=== PATIENT | female | born 1965 | race African-American/Black ===

== ENCOUNTER 2018-06-01 16:42 | Emergency (ER) | payer OTHER, SELFPAY ==
[2018-06-01 17:18] LABS: Hemoglobin 13.8 g/dL (12.0-16.0); Mean Corpuscular HGB CONC 33.2 g/dL (32.0-36.0); Mean Corpuscular Hemoglobin 32.4 pg (27.0-31.0); Mean Corpuscular Volume 97.6 fL (78.0-98.0); Mean Platelet Volume 9.7 fL (7.4-10.4); Platelet Count 168 thou/uL (130-400); RBC Distribution Width 12.5 % (11.5-14.5); Red Blood Cell (RBC) Count 4.27 mill/uL (4.20-5.40); White Blood Cell (WBC) Count 5.7 thou/uL (4.8-10.8)
[2018-06-01 17:34] LABS: Eosinophils 2 % (0-10); Lymphocytes 58 % (21-51); MDiff Complete? YES; Monocytes 1 % (0-10); Neutrophil 39 % (42-75); PLT Morphology Comment Appears Adequate
[2018-06-01 17:38] LABS: ALT (SGPT) 81 U/L (8-55); AST (SGOT) 141 U/L (5-34); Albumin 3.6 g/dL (3.5-5.0); Alkaline Phosphatase 130 U/L (40-150); Anion Gap 13 mmol/L (10-20); BUN (Urea Nitrogen) 14 mg/dL (9.8-20.1); Bilirubin, Total 0.6 mg/dL (0.2-1.2); Calc. Creatinine Clearance 0 mL/min (70-130); Carbon Dioxide 22 mmol/L (22-29); Chloride 107 mmol/L (98-107); Estimated GFR-MDRD Greater than 90; Globulin 4.5 g/dL (2.4-3.5); Glucose 84 mg/dL (70-105); Lipase 18 U/L (8-78); Potassium 3.9 mmol/L (3.5-5.1); Protein, Total 8.1 g/dL (6.0-8.3); Sodium 138 mmol/L (136-145)
--- NOTE | 2018-06-01 17:46 | RAD ---
CHEST TWO VIEWS: HISTORY: Mid chest pain. COMPARISON: 07/05/2016 FINDINGS: Two views of the chest show a normal sized cardiomediastinal silhouette. Scarring is seen in the rig ht lung base. There is no evidence of consolidation, mass, or pleural effusion. IMPRESSION: No evidence of acute cardiopulmonary disease. POS: [facility]
--- NOTE | 2018-06-01 18:03 | RAD ---
PELVIS SINGLE VIEW: HISTORY: Injury with pelvic pain. COMPARISON: None. FINDINGS: An anterior view of the pelvis shows no evidence of fracture or dislocation. No degenerative changes are seen in either hip. Degenerative changes are seen in the lumbar spine. IMPRESSION: No evidence of acute osseous abnormality. POS: [facility]
--- NOTE | 2018-06-01 18:04 | RAD ---
SACRUM AND COCCYX THREE VIEWS: HISTORY: Pain after falling on buttocks. COMPARISON: None. FINDINGS: Three views of the sacrum and coccyx show no evidence of displaced sacral or coccygeal fracture. Deg enerative changes are seen in the lower lumbosacral spine. IMPRESSION: No evidence of displaced sacral or coccygeal fracture. POS: [facility]
[2018-06-01 18:52] LABS: Acetaminophen Less than 6.0 mcg/mL (10.0-30.0); Alcohol Less than 10 mg/dL (Less than 10); Salicylate Less than 8.0 mg/dL (15.0-30.0)
[2018-06-01 19:04] LABS: Bilirubin Negative (Negative); Blood, Urine Negative (Negative); Clarity CLEAR (Clear); Glucose, Urine (Dipstick) Negative (Negative); Leukocyte Negative (Negative); Nitrite Negative (Negative); Protein, Urine (Dipstick) Negative (Neg-Trace); Specific Gravity, Urine 1.009 (1.002-1.036)
[2018-06-01 19:14] LABS: Medtox Reader # READER 1; Phencyclidine (PCP) Not Detected (NotDetected); THC/Cannabinoid Screen Not Detected (NotDetected)
[2018-06-01 19:15] LABS: Amphetamine Not Detected (NotDetected); Barbiturates Screen Detected (NotDetected); Benzodiazepine Screen Not Detected (NotDetected); Cocaine Metabolite Screen Detected (NotDetected); Medtox Control Line Valid? VALID (VALID); Methadone Not Detected (NotDetected); Methamphetamine Not Detected (NotDetected); Opiate Screen Not Detected (NotDetected); Oxycodone Screen Not Detected (NotDetected); Tricyclic Screen Not Detected (NotDetected)
[2018-06-01] MEDS ORDERED: traZODone HCl 50 MG TAB ONE (20:45)
[2018-06-02] MEDS ORDERED: hydrOXYzine Pamoate 25 mg Capsule ONE (12:45)
[2018-06-02] MEDS ORDERED: Ibuprofen 200 MG TAB ONE (12:45)
[2018-06-02] MEDS ORDERED: Nicotine 14 MG PATCH ONE (12:46)
[2018-06-02] MEDS ORDERED: Ondansetron ODT 8 MG TAB ONE (15:56)
[2018-06-02] MEDS ORDERED: Promethazine 25 MG TAB ONE (21:32)
[2018-06-02] MEDS ORDERED: Promethazine HCl 25 MG SUPP ONE (21:40)
[2018-06-02 23:21] LABS: #Eosinphils 0.1 thou/uL (0.0-0.7); #Lymphocytes 1.7 thou/uL (1.20-3.40); #Monocytes 0.5 thou/uL (0.11-0.59); #Neutrophils 1.8 thou/uL (1.40-6.50); %Basophils 0.9 % (0.0-1.0); %Eosinophils 1.6 % (0.0-10.0); %Lymphocytes 41.7 % (21.0-51.0); %Monocytes 12.9 % (0.0-10.0); %Neutrophils 42.9 % (42.0-75.0); Hemoglobin 14.1 g/dL (12.0-16.0); Mean Corpuscular HGB CONC 33.7 g/dL (32.0-36.0); Mean Corpuscular Hemoglobin 32.7 pg (27.0-31.0); Mean Corpuscular Volume 96.9 fL (78.0-98.0); Mean Platelet Volume 9.2 fL (7.4-10.4); Platelet Count 165 thou/uL (130-400); RBC Distribution Width 12.4 % (11.5-14.5); Red Blood Cell (RBC) Count 4.32 mill/uL (4.20-5.40); White Blood Cell (WBC) Count 4.1 thou/uL (4.8-10.8)
[2018-06-02] MEDS ORDERED: Pantoprazole 40 MG VIAL ONE (23:57)
[2018-06-02] MEDS ORDERED: cefTRIAXone\\ROCEPHIN 1 GM VIAL ONE (23:57)
[2018-06-02] MEDS ORDERED: Sodium Chloride 0.9% 100 ML ONE (23:57)
[2018-06-02] MEDS ORDERED: Octreotide Acetate 50 MCG/ML AMP ONE (23:57)
[2018-06-03 00:54] LABS: Anion Gap 15 mmol/L (10-20); BUN (Urea Nitrogen) 7 mg/dL (9.8-20.1); Calc. Creatinine Clearance 0 mL/min (70-130); Calcium 9.4 mg/dL (7.8-10.44); Carbon Dioxide 26 mmol/L (22-29); Chloride 105 mmol/L (98-107); Estimated GFR-MDRD Greater than 90; Glucose 116 mg/dL (70-105); Potassium 3.3 mmol/L (3.5-5.1); Sodium 143 mmol/L (136-145)
[2018-06-03 08:30] LABS: Hemoglobin 14.3 g/dL (12.0-16.0)
--- NOTE | 2018-06-05 18:10 | EKG ---
Test Reason : CHEST PAIN Blood Pressure : / mmHG Vent. Rate : 072 BPM Atrial Rate : 072 BPM P-R Int : 168 ms QRS Dur : 094 ms QT Int : 424 ms P-R-T Axes : 063 044 042 degrees QTc Int : 464 ms Normal sinus rhythm Possible Left atrial enlargement Septal infarct , age undetermined Abnormal ECG When compared with ECG of 04-JUL-2016 No changes Confirmed by VILMA AARON DO ([id number]), film editor supervisor ASAD CUEVA ([id number]) on 06/05/2018 6:09:57 PM Referred By: RALEIGH Confirmed By:VILMA AARON DO
== END 2018-06-04 01:03 | disposition home or self-care (01) ==
LOC: ERS 16:42
DX: R07.89 Other chest pain (principal); R45.850 Homicidal ideations; R45.851 Suicidal ideations; K62.89 Other specified diseases of anus and rectum; G40.909 Epilepsy, unspecified, not intractable, without status epilepticus; B20 Human immunodeficiency virus [HIV] disease; I10 Essential (primary) hypertension; Z86.73 Personal history of transient ischemic attack (TIA), and cerebral infarction without residual deficits
CPT/HCPCS: 36415; 71046; 72170; 72220; 80048; 80053; 80306; 80307; 81003; 82271; 83690; 83880; 84484; 85014; 85018; 85025; 93005; 96372; 96374; C9113; J0696; J2354; J7050; Q0177

== ENCOUNTER 2018-06-12 17:13 | Emergency (ER) | payer SELFPAY ==
[~2018-06-12 17:13] MED LIST: Iopamidol 370 76% 100 ML VIAL ONE; Iopamidol 370 76% 50 ML VIAL FS ONE
[2018-06-12] MEDS ORDERED: Ondansetron PF 4 MG/2 ML Vial ONE ×2 (18:05→21:55)
[2018-06-12] MEDS ORDERED: Haloperidol Lactate 5 MG/ML VIAL ONE (18:33)
[2018-06-12 19:40] LABS: #Eosinphils 0.1 thou/uL (0.0-0.7); #Lymphocytes 2.9 thou/uL (1.20-3.40); #Monocytes 0.8 thou/uL (0.11-0.59); #Neutrophils 2.2 thou/uL (1.40-6.50); %Basophils 0.7 % (0.0-1.0); %Eosinophils 1.4 % (0.0-10.0); %Lymphocytes 49.1 % (21.0-51.0); %Monocytes 12.8 % (0.0-10.0); %Neutrophils 35.9 % (42.0-75.0); Hemoglobin 15.6 g/dL (12.0-16.0); Mean Corpuscular HGB CONC 33.7 g/dL (32.0-36.0); Mean Corpuscular Hemoglobin 32.7 pg (27.0-31.0); Mean Corpuscular Volume 97.2 fL (78.0-98.0); Mean Platelet Volume 9.8 fL (7.4-10.4); Platelet Count 182 thou/uL (130-400); RBC Distribution Width 12.4 % (11.5-14.5); Red Blood Cell (RBC) Count 4.78 mill/uL (4.20-5.40)
[2018-06-12 20:03] LABS: ALT (SGPT) 49 U/L (8-55); AST (SGOT) 57 U/L (5-34); Albumin 3.9 g/dL (3.5-5.0); Alkaline Phosphatase 115 U/L (40-150); Anion Gap 16 mmol/L (10-20); BUN (Urea Nitrogen) 9 mg/dL (9.8-20.1); Bilirubin, Total 0.6 mg/dL (0.2-1.2); Calc. Creatinine Clearance 0 mL/min (70-130); Calcium 9.7 mg/dL (7.8-10.44); Carbon Dioxide 25 mmol/L (22-29); Chloride 105 mmol/L (98-107); Estimated GFR-MDRD 78; Globulin 4.6 g/dL (2.4-3.5); Glucose 118 mg/dL (70-105); Lipase 82 U/L (8-78); Potassium 3.3 mmol/L (3.5-5.1); Protein, Total 8.5 g/dL (6.0-8.3); Sodium 143 mmol/L (136-145)
[2018-06-12 20:13] LABS: Acetaminophen Less than 6.0 mcg/mL (10.0-30.0); Alcohol Less than 10 mg/dL (Less than 10); Salicylate Less than 8.0 mg/dL (15.0-30.0)
[2018-06-12] MEDS ORDERED: Morphine 4 MG/ML VIAL ONE ×2 (21:04→23:25)
[2018-06-12 21:28] LABS: Bilirubin Small (Negative); Blood, Urine Negative (Negative); Clarity CLEAR (Clear); Glucose, Urine (Dipstick) Negative (Negative); Leukocyte Small (Negative); Nitrite Negative (Negative); Protein, Urine (Dipstick) 100 mg/dL (Neg-Trace); Specific Gravity, Urine 1.037 (1.002-1.036); pH, Urine 7.5 (5.0-9.0)
[2018-06-12 21:30] LABS: Bacteria/HPF None Seen HPF (None Seen); Pathc Cast-AUWi Flag 1.59 (0-2.49)
[2018-06-12 21:31] LABS: Hyaline Casts/LPF 0-3 HYALINE CAST LPF (0-3 Hyaline)
[2018-06-12 21:38] LABS: Amphetamine Not Detected (NotDetected); Barbiturates Screen Detected (NotDetected); Benzodiazepine Screen Not Detected (NotDetected); Cocaine Metabolite Screen Detected (NotDetected); Medtox Control Line Valid? VALID (VALID); Medtox Reader # READER 1; Methadone Not Detected (NotDetected); Methamphetamine Not Detected (NotDetected); Opiate Screen Not Detected (NotDetected); Oxycodone Screen Not Detected (NotDetected); Phencyclidine (PCP) Not Detected (NotDetected); THC/Cannabinoid Screen Detected (NotDetected); Tricyclic Screen Not Detected (NotDetected)
--- NOTE | 2018-06-12 22:14 | CT ---
CT ABDOMEN AND PELVIS WITH CONTRAST: 06/12/18 HISTORY: Abdominal pain. COMPARISON: Stone protocol CT 05/21/17. FINDINGS: Mild thickening of both major fissures. No significant pleural effusion. No pericardial effusion. There is a fat and omentum containing supraumbilical hernia between the xip hoid process and the umbilicus with some mild congestion of the vessels. The neck measures 13 mm. The hernia does not contain bowel. There are no dilated loops of large or small bowel. The kidneys are unremarkable. No hydronephrosis. No retroperitoneal adenopathy . Pancreas is unremark able. There is no acute osseous abnormality. Moderate facet arthropathy lower lumbar spine. IMPRESSION: 1. No acute inflammatory process in abdomen or pelvis. 2. There is a fat and omentum containing supraumbilical subxiphoid hernia with some mild congest fabiana changes in the fat. No bowel is within this hernia. 3. Normal appendix. POS: [facility]
[2018-06-12] MEDS ORDERED: Promethazine HCl 25 MG/ML VIAL ONE (23:28)
[2018-06-12 23:37] LABS: Hemoglobin 14.5 g/dL (12.0-16.0)
[2018-06-12] MEDS ORDERED: Nitroglycerin 0.4 MG TAB (25 Tab Bottle) ONE (23:44)
[2018-06-12] MEDS ORDERED: Nitroglycerin 2% Ointment 1 INCH/1 GM Packet ONE (23:44)
[2018-06-12] MEDS ORDERED: Potassium Chloride 10 MEQ in Premix Bag 1 BAG IVPB SCH (23:45)
== END 2018-06-13 03:19 | disposition home or self-care (01) ==
LOC: ERS 17:13
DX: R10.9 Unspecified abdominal pain (principal); B20 Human immunodeficiency virus [HIV] disease; I10 Essential (primary) hypertension; F41.9 Anxiety disorder, unspecified; F31.9 Bipolar disorder, unspecified; F20.9 Schizophrenia, unspecified; F17.210 Nicotine dependence, cigarettes, uncomplicated
CPT/HCPCS: 36415; 74177; 80053; 80306; 80307; 81003; 81015; 82271; 83690; 83735; 85025; 93005; 96361; 96365; 96366; 96372; 96374; 96375; J1630; J2270; J2405; J2550; J3480

== ENCOUNTER → 2018-06-14 | Emergency (ER) | payer SELFPAY ==
[~2018-06-14] MED LIST changes: +Amlodipine 10 MG TAB PO SCH; -Iopamidol 370 76% 100 ML VIAL ONE; -Iopamidol 370 76% 50 ML VIAL FS ONE; +diphenhydrAMINE 25 MG CAP ONE
[2018-06-14 21:56] LABS: Acetaminophen Less than 6.0 mcg/mL (10.0-30.0); Alcohol Less than 10 mg/dL (Less than 10); Salicylate Less than 8.0 mg/dL (15.0-30.0)
[2018-06-14 21:57] LABS: ALT (SGPT) 50 U/L (8-55); AST (SGOT) 63 U/L (5-34); Albumin 3.8 g/dL (3.5-5.0); Alkaline Phosphatase 105 U/L (40-150); Anion Gap 12 mmol/L (10-20); BUN (Urea Nitrogen) 11 mg/dL (9.8-20.1); Bilirubin, Total 0.4 mg/dL (0.2-1.2); Calc. Creatinine Clearance 0 mL/min (70-130); Calcium 9.5 mg/dL (7.8-10.44); Carbon Dioxide 26 mmol/L (22-29); Chloride 107 mmol/L (98-107); Estimated GFR-MDRD 65; Globulin 4.3 g/dL (2.4-3.5); Glucose 121 mg/dL (70-105); Potassium 3.3 mmol/L (3.5-5.1); Protein, Total 8.1 g/dL (6.0-8.3); Sodium 142 mmol/L (136-145)
[2018-06-14 21:59] LABS: Hemoglobin 15.4 g/dL (12.0-16.0); Mean Corpuscular HGB CONC 33.2 g/dL (32.0-36.0); Mean Corpuscular Volume 96.2 fL (78.0-98.0); Mean Platelet Volume 10.4 fL (7.4-10.4); Platelet Count 172 thou/uL (130-400); RBC Distribution Width 12.1 % (11.5-14.5); Red Blood Cell (RBC) Count 4.81 mill/uL (4.20-5.40); White Blood Cell (WBC) Count 7.3 thou/uL (4.8-10.8)
[2018-06-14 22:03] LABS: Lymphocytes 45 % (21-51); MDiff Complete? YES; Monocytes 18 % (0-10); Neutrophil 33 % (42-75); PLT Morphology Comment Appears Adequate; RBC Morphology Normal; Reactive Lymphocytes 4 % (0-10)
[2018-06-14 22:05] LABS: Bilirubin Moderate (Negative); Blood, Urine Negative (Negative); Glucose, Urine (Dipstick) 100 mg/dL (Negative); Leukocyte Trace (Negative); Nitrite Negative (Negative); Protein, Urine (Dipstick) 30 mg/dL (Neg-Trace); pH, Urine 8.5 (5.0-9.0)
[2018-06-14 22:08] LABS: Clarity Hazy (Clear)
[2018-06-14 22:09] LABS: Bacteria/HPF 1+ HPF (None Seen); Other Microscopic Description Less than 2 mL rec'd; RBC/HPF 0-3 HPF (0-3); WBC/HPF 0-3 HPF (0-3)
[2018-06-14 22:18] LABS: Amphetamine Not Detected (NotDetected); Barbiturates Screen Detected (NotDetected); Benzodiazepine Screen Not Detected (NotDetected); Cocaine Metabolite Screen Detected (NotDetected); Medtox Control Line Valid? VALID (VALID); Medtox Reader # READER 4; Methadone Not Detected (NotDetected); Methamphetamine Not Detected (NotDetected); Opiate Screen Detected (NotDetected); Oxycodone Screen Not Detected (NotDetected); Phencyclidine (PCP) Not Detected (NotDetected); THC/Cannabinoid Screen Detected (NotDetected); Tricyclic Screen Not Detected (NotDetected)
== END ==
LOC: ERS 20:25
DX: R45.851 Suicidal ideations (principal); G40.909 Epilepsy, unspecified, not intractable, without status epilepticus; B20 Human immunodeficiency virus [HIV] disease; I10 Essential (primary) hypertension; F31.9 Bipolar disorder, unspecified; F41.9 Anxiety disorder, unspecified; F20.9 Schizophrenia, unspecified; F17.210 Nicotine dependence, cigarettes, uncomplicated
CPT/HCPCS: 36415; 80053; 80306; 80307; 81003; 81015; 85025; 99285

== ENCOUNTER 2018-07-31 11:31 | Emergency (ER) | payer SELFPAY ==
[2018-07-31] MEDS ORDERED: hydrALAZINE 20 MG/ML VIAL ONE (12:08)
[2018-07-31 12:16] LABS: #Basophils 0.1 thou/uL (0.0-0.2); #Lymphocytes 2.1 thou/uL (1.20-3.40); #Monocytes 0.9 thou/uL (0.11-0.59); #Neutrophils 7.7 thou/uL (1.40-6.50); %Basophils 0.6 % (0.0-1.0); %Lymphocytes 19.6 % (21.0-51.0); %Monocytes 8.5 % (0.0-10.0); %Neutrophils 71.2 % (42.0-75.0); Hemoglobin 15.5 g/dL (12.0-16.0); Mean Corpuscular Hemoglobin 31.8 pg (27.0-31.0); Mean Corpuscular Volume 96.4 fL (78.0-98.0); Platelet Count 137 thou/uL (130-400); RBC Distribution Width 12.1 % (11.5-14.5); Red Blood Cell (RBC) Count 4.88 mill/uL (4.20-5.40); White Blood Cell (WBC) Count 10.8 thou/uL (4.8-10.8)
[2018-07-31 12:19] LABS: Bilirubin Small (Negative); Blood, Urine Small (Negative); Clarity TURBID (Clear); Glucose, Urine (Dipstick) Negative (Negative); Leukocyte Small (Negative); Nitrite Negative (Negative); Protein, Urine (Dipstick) 30 mg/dL (Neg-Trace); Specific Gravity, Urine 1.028 (1.002-1.036); pH, Urine 5.5 (5.0-9.0)
[2018-07-31 12:21] LABS: Bacteria/HPF Rare-Few HPF (None Seen); Hyaline Casts/LPF 4-6 HYALINE CAST LPF (0-3 Hyaline)
[2018-07-31] MEDS ORDERED: cloNIDine 0.1 MG TAB ONE (12:29)
[2018-07-31] MEDS ORDERED: Lidocaine 1% w/Epinephrine 1:100K 20 ML VIAL ONE (12:31)
[2018-07-31 12:32] LABS: Crystals/HPF 4+ AMORPH URATES HPF (Negative); RBC/HPF 0-3 HPF (0-3)
[2018-07-31 12:36] LABS: ALT (SGPT) 76 U/L (8-55); AST (SGOT) 93 U/L (5-34); Albumin 3.6 g/dL (3.5-5.0); Alkaline Phosphatase 106 U/L (40-150); Anion Gap 13 mmol/L (10-20); BUN (Urea Nitrogen) 10 mg/dL (9.8-20.1); Bilirubin, Total 0.8 mg/dL (0.2-1.2); CK (CPK) 400 U/L (29-168); Calc. Creatinine Clearance 0 mL/min (70-130); Calcium 9.6 mg/dL (7.8-10.44); Carbon Dioxide 21 mmol/L (22-29); Chloride 102 mmol/L (98-107); Estimated GFR-MDRD 80; Globulin 4.7 g/dL (2.4-3.5); Glucose 96 mg/dL (70-105); Lipase 13 U/L (8-78); Potassium 3.9 mmol/L (3.5-5.1); Protein, Total 8.3 g/dL (6.0-8.3); Sodium 132 mmol/L (136-145)
[2018-07-31 12:36] LABS: Amphetamine Not Detected (NotDetected); Barbiturates Screen Not Detected (NotDetected); Benzodiazepine Screen Not Detected (NotDetected); Cocaine Metabolite Screen Detected (NotDetected); Medtox Control Line Valid? VALID (VALID); Medtox Reader # READER 4; Methadone Not Detected (NotDetected); Methamphetamine Not Detected (NotDetected); Opiate Screen Not Detected (NotDetected); Oxycodone Screen Not Detected (NotDetected); Phencyclidine (PCP) Not Detected (NotDetected); THC/Cannabinoid Screen Detected (NotDetected); Tricyclic Screen Not Detected (NotDetected)
[2018-07-31 12:37] LABS: Acetaminophen Less than 6.0 mcg/mL (10.0-30.0); Alcohol Less than 10 mg/dL (Less than 10); Salicylate Less than 8.0 mg/dL (15.0-30.0)
--- NOTE | 2018-07-31 15:54 | CT ---
CT ANGIOGRAM OF THE THORACIC AND ABDOMINAL AORTA 07/31/18 HISTORY: Evaluate for dissection. Chest pain with radiation to both upper extremities. Intermittent abdominal pain. COMPARISON: None. CORRELATION: Abdomen and pelvic CT of 06/12/18. TECHNIQUE: CT angiogram of the thoracic and abdominal aorta is performed in the axial plane. Three dimensional r eformatted images are submitted for interpretation. FINDINGS: There are mildly enlarged bilateral axillary lymph nodes. Largest axillary lymph node without a prese rved fatty hilum is noted in the left axilla measuring 1.8 x 1.5 cm. Unremarkable thyroid gland. No mediastinal mass, lymphadenopathy or hematoma. Heart size is within normal limits. No pericardial effusion. Calcified nodule in the right upper lobe. Focal consolidation in the middle lobe. Opacity may repres ent area of subsegmental atelectasis or scar. Atelectasis and scarring in the lingula. No significan t pleural fluid or pneumothorax. ABDOMEN CT: Liver, spleen, pancreas and adrenal glands have appropriate enhancement. Unremarkable gallbladder. No gastrohepatic, retrocrural or periportal lymphadenopathy. No mesenteric mass, lymphadenopathy, free air or free fluid. The visualized kidneys have symmetric enhancement. No obstructive uropathy. The visualized alimentary canal is unremarkable. No evidence of bowel obstruction. Evaluation is limi jameson by the lack of oral contrast administration. Redemonstration of an anterior abdominal wall hernia containing mesenteric fat with stable mesenteric congestion. There are no lytic or blastic lesions in the osseous structures. CT ANGIOGRAM: The aortic root is unremarkable. The ascending thoracic aorta, descending thoracic aorta, and abdomin al aorta have an overall normal course and caliber. No aneurysm or dissection. No periaortic fat stra nding. The origin of the carotid and vertebral arteries is grossly unremarkable. There does appear to be common origin of both common carotid arteries (bovine arch). There is medial deviation of both co mmon carotid arteries with mass effect on the posterior hypopharynx. 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 The visualized subclavian arteries are unremarkable. The celiac artery, superior mesenteric artery, bilateral renal artery ostia are patent. TRIXIE is unremarkable. Aortic bifurcation and visualized iliac arteries are also unremarkable. Central pulmonary arteries do not demonstrate any obvious filling defect. IMPRESSION: 1. No evidence of aneurysm or dissection. 2. Focal opacity in the middle lobe which may represent area of subsegmental atelectasis or scar . POS: [facility]
[2018-07-31] MEDS ORDERED: Acetaminophen 500 MG TAB ONE (16:01)
[2018-07-31] MEDS ORDERED: ISOVUE-370 76%-LOCM 1 ML ONE (16:49)
[2018-08-01] MEDS ORDERED: Acetaminophen 500 MG TAB ONE (09:50)
== END 2018-08-01 15:44 ==
LOC: ERS 11:31
DX: R07.9 Chest pain, unspecified (principal); R45.851 Suicidal ideations; R10.9 Unspecified abdominal pain; F14.10 Cocaine abuse, uncomplicated; B20 Human immunodeficiency virus [HIV] disease; G40.909 Epilepsy, unspecified, not intractable, without status epilepticus; I10 Essential (primary) hypertension; F41.9 Anxiety disorder, unspecified; F31.9 Bipolar disorder, unspecified; F20.9 Schizophrenia, unspecified; F17.210 Nicotine dependence, cigarettes, uncomplicated; I67.1 Cerebral aneurysm, nonruptured; Z79.891 Long term (current) use of opiate analgesic; Z79.899 Other long term (current) drug therapy
CPT/HCPCS: 36415; 71275; 80053; 80306; 80307; 81003; 81015; 82550; 83690; 84443; 84484; 85025; 87804; 93005; 96372; J0360; J0500; J2001; Q9966

== ENCOUNTER 2018-08-26 12:11 | Emergency (ER) | payer SELFPAY ==
[2018-08-26 12:45] LABS: Hemoglobin 15.2 g/dL (12.0-16.0); Mean Corpuscular HGB CONC 32.2 g/dL (32.0-36.0); Mean Corpuscular Hemoglobin 30.4 pg (27.0-31.0); Mean Corpuscular Volume 94.5 fL (78.0-98.0); Mean Platelet Volume 9.4 fL (7.4-10.4); Platelet Count 184 thou/uL (130-400); RBC Distribution Width 13.1 % (11.5-14.5); Red Blood Cell (RBC) Count 4.98 mill/uL (4.20-5.40); White Blood Cell (WBC) Count 5.4 thou/uL (4.8-10.8)
[2018-08-26 12:50] LABS: INR-International Normal Ratio 1.1; PTT 31.4 SEC (22.9-36.1); Prothrombin Time 14.2 SEC (12.0-14.7)
[2018-08-26 13:01] LABS: Lymphocytes 55 % (21-51); MDiff Complete? YES; Monocytes 13 % (0-10); Neutrophil 28 % (42-75); Platelet Morphology Comment Appears Adequate; RBC Morphology Normal; Reactive Lymphocytes 3 % (0-10)
[2018-08-26 13:13] LABS: ALT (SGPT) 53 U/L (8-55); AST (SGOT) 76 U/L (5-34); Albumin 3.6 g/dL (3.5-5.0); Alkaline Phosphatase 76 U/L (40-150); Anion Gap 14 mmol/L (10-20); BUN (Urea Nitrogen) 6 mg/dL (9.8-20.1); Bilirubin, Total 0.7 mg/dL (0.2-1.2); CK (CPK) 359 U/L (29-168); Calc. Creatinine Clearance 0 mL/min (70-130); Calcium 9.7 mg/dL (7.8-10.44); Carbon Dioxide 24 mmol/L (22-29); Chloride 107 mmol/L (98-107); Estimated GFR-MDRD 83; Globulin 4.9 g/dL (2.4-3.5); Glucose 119 mg/dL (70-105); Potassium 3.4 mmol/L (3.5-5.1); Protein, Total 8.5 g/dL (6.0-8.3); Sodium 142 mmol/L (136-145)
--- NOTE | 2018-08-26 13:24 | CT ---
CT HEAD WITHOUT CONTRAST: Date: 08/26/18 COMPARISON: 06/27/15. HISTORY: Right-sided weakness. TECHNIQUE: Axial CT imaging obtained at 5 mm intervals from vertex through skull base without contrast. FINDINGS: Imaged paranasal sinuses and mastoid air cells are well aerated. 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 There is no intracranial hemorrhage, midline shift, or mass effect. Mild stable cerebellar volume los s. IMPRESSION: Stable head CT as detailed above. No intracranial hemorrhage. Results called to Dr. Hermosillo at 1223 hours on 08/26/18. CODE CR. POS: [facility]
[2018-08-26] MEDS ORDERED: Lorazepam 2 MG/ML VIAL ONE ×2 (14:48→16:46)
[2018-08-26 15:34] LABS: Acetaminophen Less than 6.0 mcg/mL (10.0-30.0); Alcohol Less than 10 mg/dL (Less than 10); Salicylate Less than 8.0 mg/dL (15.0-30.0)
[2018-08-26] MEDS ORDERED: Ziprasidone 20 MG CAP ONE (16:46)
[2018-08-27] MEDS ORDERED: diphenhydrAMINE 25 MG CAP ONE ×2 (10:59→23:38)
[2018-08-27] MEDS ORDERED: Ziprasidone 20 MG CAP ONE ×2 (11:01)
[2018-08-27] MEDS ORDERED: Lorazepam 2 MG/ML VIAL ONE (13:51)
[2018-08-28] MEDS ORDERED: Amlodipine 10 MG TAB PO SCH (09:00)
[2018-08-28] MEDS ORDERED: Benztropine 1 MG TAB PO SCH (09:00)
[2018-08-28] MEDS ORDERED: risperiDONE 1 MG TAB PO SCH (09:00)
[2018-08-28 13:01] LABS: Bilirubin Small (Negative); Blood, Urine Negative (Negative); Clarity CLEAR (Clear); Glucose, Urine (Dipstick) Negative (Negative); Leukocyte Small (Negative); Nitrite Negative (Negative); Protein, Urine (Dipstick) Negative (Neg-Trace); Specific Gravity, Urine 1.024 (1.002-1.036)
[2018-08-28 13:03] LABS: Bacteria/HPF None Seen HPF (None Seen); Hyaline Casts/LPF 0-3 HYALINE CAST LPF (0-3 Hyaline); Pathc Cast-AUWi Flag 0.54 (0-2.49); RBC/HPF 0-3 HPF (0-3); Squamous Epithelial 0-3 HPF (0-3); WBC/HPF 0-3 HPF (0-3)
[2018-08-28 13:12] LABS: Crystals/HPF 1+ CA OXALATE HPF (Negative)
[2018-08-28 13:13] LABS: Amphetamine Not Detected (NotDetected); Barbiturates Screen Not Detected (NotDetected); Benzodiazepine Screen Detected (NotDetected); Cocaine Metabolite Screen Detected (NotDetected); Medtox Control Line Valid? VALID (VALID); Medtox Reader # READER 4; Methadone Not Detected (NotDetected); Methamphetamine Not Detected (NotDetected); Opiate Screen Not Detected (NotDetected); Oxycodone Screen Not Detected (NotDetected); Phencyclidine (PCP) Not Detected (NotDetected); THC/Cannabinoid Screen Detected (NotDetected); Tricyclic Screen Not Detected (NotDetected)
--- NOTE | 2018-08-28 17:36 | EKG ---
Test Reason : Blood Pressure : / mmHG Vent. Rate : 078 BPM Atrial Rate : 078 BPM P-R Int : 160 ms QRS Dur : 092 ms QT Int : 396 ms P-R-T Axes : 050 030 029 degrees QTc Int : 451 ms Normal sinus rhythm Moderate voltage criteria for LVH, may be normal variant Cannot rule out Septal infarct , age undetermined Abnormal ECG Confirmed by FRANSISCO PAUL, BRUNO ([id number]), editor city ASAD CUEVA ([id number]) on 08/28/2018 5:35:51 PM Referred By: Confirmed By:BRUNO MOODY MD
[2018-08-30] MEDS ORDERED: risperiDONE 1 MG TAB PO SCH (09:00)
== END 2018-08-30 18:40 | disposition home or self-care (01) ==
LOC: ERS 12:11
DX: F32.3 Major depressive disorder, single episode, severe with psychotic features (principal); G40.909 Epilepsy, unspecified, not intractable, without status epilepticus; B20 Human immunodeficiency virus [HIV] disease; F41.9 Anxiety disorder, unspecified; F17.210 Nicotine dependence, cigarettes, uncomplicated; Z79.899 Other long term (current) drug therapy
CPT/HCPCS: 36416; 70450; 80053; 80306; 80307; 81003; 81015; 82550; 84443; 84484; 85025; 85610; 85730; 93005; 96372; 96374; 96376; J2060; Q0163

== ENCOUNTER 2018-09-02 02:28 | Emergency (ER) | payer SELFPAY ==
[2018-09-02 02:53] LABS: Bilirubin Negative (Negative); Blood, Urine Negative (Negative); Clarity CLEAR (Clear); Glucose, Urine (Dipstick) Negative (Negative); Leukocyte Moderate (Negative); Nitrite Negative (Negative); Protein, Urine (Dipstick) Negative (Neg-Trace); Urobilinogen 0.2 mg/dL (0.2-1.0)
[2018-09-02 02:56] LABS: Bacteria/HPF None Seen HPF (None Seen); Hyaline Casts/LPF 0-3 HYALINE CAST LPF (0-3 Hyaline); Squamous Epithelial 0-3 HPF (0-3); WBC/HPF 0-3 HPF (0-3)
[2018-09-02 02:59] LABS: Hemoglobin 15.1 g/dL (12.0-16.0); Mean Corpuscular HGB CONC 33.5 g/dL (32.0-36.0); Mean Corpuscular Hemoglobin 31.7 pg (27.0-31.0); Mean Corpuscular Volume 94.7 fL (78.0-98.0); Mean Platelet Volume 9.8 fL (7.4-10.4); Platelet Count 160 thou/uL (130-400); RBC Distribution Width 13.4 % (11.5-14.5); Red Blood Cell (RBC) Count 4.75 mill/uL (4.20-5.40); White Blood Cell (WBC) Count 6.7 thou/uL (4.8-10.8)
[2018-09-02 03:02] LABS: Amphetamine Not Detected (NotDetected); Barbiturates Screen Detected (NotDetected); Benzodiazepine Screen Not Detected (NotDetected); Cocaine Metabolite Screen Detected (NotDetected); Medtox Control Line Valid? VALID (VALID); Medtox Reader # READER 4; Methadone Not Detected (NotDetected); Methamphetamine Not Detected (NotDetected); Opiate Screen Not Detected (NotDetected); Oxycodone Screen Not Detected (NotDetected); Phencyclidine (PCP) Not Detected (NotDetected); THC/Cannabinoid Screen Not Detected (NotDetected); Tricyclic Screen Not Detected (NotDetected)
[2018-09-02] MEDS ORDERED: Lorazepam 1 MG TAB ONE (03:10)
[2018-09-02 03:16] LABS: Acetaminophen Less than 6.0 mcg/mL (10.0-30.0); Alcohol Less than 10 mg/dL (Less than 10); Salicylate Less than 8.0 mg/dL (15.0-30.0)
[2018-09-02 03:17] LABS: ALT (SGPT) 43 U/L (8-55); AST (SGOT) 70 U/L (5-34); Albumin 3.5 g/dL (3.5-5.0); Alkaline Phosphatase 83 U/L (40-150); Anion Gap 13 mmol/L (10-20); BUN (Urea Nitrogen) 7 mg/dL (9.8-20.1); Bilirubin, Total 0.6 mg/dL (0.2-1.2); Calc. Creatinine Clearance 0 mL/min (70-130); Calcium 9.5 mg/dL (7.8-10.44); Carbon Dioxide 20 mmol/L (22-29); Chloride 107 mmol/L (98-107); Estimated GFR-MDRD Greater than 90; Glucose 129 mg/dL (70-105); Potassium 3.6 mmol/L (3.5-5.1); Protein, Total 8.5 g/dL (6.0-8.3); Sodium 136 mmol/L (136-145)
[2018-09-02 03:23] LABS: MDiff Complete? YES
[2018-09-02 03:24] LABS: Lymphocytes 67 % (21-51); Monocytes 11 % (0-10); Neutrophil 16 % (42-75); Platelet Morphology Comment Appears Adequate; Reactive Lymphocytes 6 % (0-10)
[2018-09-02] MEDS ORDERED: Amlodipine 10 MG TAB PO SCH (04:15)
[2018-09-02] MEDS ORDERED: Benztropine 1 MG TAB PO SCH ×2 (07:45→21:45)
[2018-09-02] MEDS ORDERED: risperiDONE 1 MG TAB PO SCH ×2 (07:45→22:00)
[2018-09-03] MEDS ORDERED: Amlodipine 10 MG TAB PO SCH (07:45)
[2018-09-03] MEDS ORDERED: risperiDONE 1 MG TAB PO SCH ×2 (07:45→19:45)
[2018-09-03] MEDS ORDERED: Benztropine 1 MG TAB PO SCH ×2 (07:45→19:45)
[2018-09-03] MEDS ORDERED: risperiDONE 1 MG TAB ONE (08:22)
[2018-09-03] MEDS ORDERED: diphenhydrAMINE 25 MG CAP ONE (08:38)
[2018-09-03] MEDS ORDERED: traZODone HCl 50 MG TAB PO SCH (19:45)
[2018-09-04] MEDS ORDERED: Amlodipine 10 MG TAB PO SCH (09:00)
[2018-09-04] MEDS ORDERED: Benztropine 1 MG TAB PO SCH (09:00)
[2018-09-04] MEDS ORDERED: risperiDONE 1 MG TAB PO SCH (09:00)
[2018-09-07] MEDS ORDERED: RisperDAL M-TAB 1 MG TAB PO SCH (15:15)
== END 2018-09-02 09:45 | disposition home or self-care (01) ==
LOC: ERS 02:28
DX: F14.94 Cocaine use, unspecified with cocaine-induced mood disorder (principal); G40.909 Epilepsy, unspecified, not intractable, without status epilepticus; B20 Human immunodeficiency virus [HIV] disease; F41.9 Anxiety disorder, unspecified; F20.9 Schizophrenia, unspecified; F17.210 Nicotine dependence, cigarettes, uncomplicated; Z79.899 Other long term (current) drug therapy
CPT/HCPCS: 36415; 80053; 80306; 80307; 81003; 81015; 84443; 85025; 99284; Q0163

== ENCOUNTER 2018-12-29 11:42 | Emergency (ER) | payer MEDICAID ==
--- NOTE | 2018-12-29 12:42 | RAD ---
3 views left foot: 12/29/2018 COMPARISON: None available HISTORY: Left foot pain FINDINGS: There is an obliquely oriented fracture at the base of the fourth metatarsal. This fracture appears subacute as there is callus formation adjacent to this fracture. A fracture line is still faintly seen in this region however. There is mild degenerative change involving the first metatarsal-phalangeal joint. There is enthesoph yte formation at the origin of the plantar aponeurosis. IMPRESSION: Findings suggesting a healing fracture at the base of the fourth metatarsal.
== END 2018-12-29 13:02 | disposition home or self-care (01) ==
LOC: ERS 11:42
DX: M79.672 Pain in left foot (principal); I10 Essential (primary) hypertension; G40.909 Epilepsy, unspecified, not intractable, without status epilepticus; F41.9 Anxiety disorder, unspecified; F31.9 Bipolar disorder, unspecified; F20.9 Schizophrenia, unspecified; F17.210 Nicotine dependence, cigarettes, uncomplicated; Z79.899 Other long term (current) drug therapy

== ENCOUNTER 2019-08-22 09:45 | Emergency (ER) | payer OTHER ==
[2019-08-22 10:43] LABS: #Lymphocytes 2.3 thou/uL (1.20-3.40); #Monocytes 0.4 thou/uL (0.11-0.59); #Neutrophils 1.9 thou/uL (1.40-6.50); %Basophils 0.9 % (0.0-1.0); %Eosinophils 0.9 % (0.0-10.0); %Lymphocytes 49.6 % (21.0-51.0); %Monocytes 7.9 % (0.0-10.0); %Neutrophils 40.8 % (42.0-75.0); Hemoglobin 15.6 g/dL (12.0-16.0); Mean Corpuscular HGB CONC 33.7 g/dL (32.0-36.0); Mean Corpuscular Hemoglobin 32.3 pg (27.0-31.0); Mean Platelet Volume 11.1 fL (7.4-10.4); Platelet Count 143 thou/uL (130-400); RBC Distribution Width 13.3 % (11.5-14.5); Red Blood Cell (RBC) Count 4.83 mill/uL (4.20-5.40); White Blood Cell (WBC) Count 4.6 thou/uL (4.8-10.8)
[2019-08-22 10:59] LABS: Eosinophils 1 % (0-10); Lymphocytes 53 % (21-51); MDiff Complete? YES; Monocytes 4 % (0-10); Neutrophil 41 % (42-75); RBC Morphology Normal
[2019-08-22 11:00] LABS: Band 1 % (5-11)
[2019-08-22 11:10] LABS: Bilirubin Negative (Negative); Blood, Urine Trace (Negative); Clarity Clear (Clear); Glucose, Urine (Dipstick) Negative (Negative); Leukocyte Negative (Negative); Nitrite Negative (Negative); Protein, Urine (Dipstick) Negative (Neg-Trace); Urobilinogen 0.2 mg/dL (Less than 2)
[2019-08-22 11:12] LABS: ALT (SGPT) 16 U/L (8-55); AST (SGOT) 25 U/L (5-34); Albumin 3.9 g/dL (3.5-5.0); Alkaline Phosphatase 105 U/L (40-110); Anion Gap 15 mmol/L (10-20); BUN (Urea Nitrogen) 23 mg/dL (9.8-20.1); Bilirubin, Total 0.8 mg/dL (0.2-1.2); Calc. Creatinine Clearance 0 mL/min (70-130); Calcium 9.7 mg/dL (7.8-10.44); Carbon Dioxide 20 mmol/L (22-29); Chloride 108 mmol/L (98-107); Estimated GFR-MDRD 62; Globulin 3.7 g/dL (2.4-3.5); Glucose 82 mg/dL (70-105); Lipase 26 U/L (8-78); Potassium 3.9 mmol/L (3.5-5.1); Protein, Total 7.6 g/dL (6.0-8.3); Sodium 139 mmol/L (136-145)
[2019-08-22 11:13] LABS: Bacteria/HPF None Seen HPF (None Seen); RBC/HPF 0-3 HPF (0-3); Squamous Epithelial 0-3 HPF (0-3); WBC/HPF 0-3 HPF (0-3)
[2019-08-22 11:14] LABS: Pregnancy Test - Urine (BHCG) Negative (Negative); Pregu Control Background? CLEAR/WHITE (CLR/WHITE); Pregu Control Bar Appear? YES (CONTROL BAR)
[2019-08-22 11:42] LABS: Alcohol Less than 10 mg/dL (Less than 10); CK (CPK) 232 U/L (29-168)
[2019-08-22 11:49] LABS: Acetaminophen Less than 6.0 mcg/mL (10.0-30.0); Alcohol Less than 10 mg/dL (Less than 10); Salicylate Less than 8.0 mg/dL (15.0-30.0)
[2019-08-22 12:06] LABS: Amphetamine Not Detected (NotDetected); Barbiturates Screen Not Detected (NotDetected); Benzodiazepine Screen Not Detected (NotDetected); Cocaine Metabolite Screen Detected (NotDetected); Medtox Control Line Valid? VALID (VALID); Medtox Reader # READER 4; Methadone Not Detected (NotDetected); Methamphetamine Not Detected (NotDetected); Opiate Screen Not Detected (NotDetected); Oxycodone Screen Not Detected (NotDetected); Phencyclidine (PCP) Not Detected (NotDetected); THC/Cannabinoid Screen Detected (NotDetected); Tricyclic Screen Not Detected (NotDetected)
== END 2019-08-22 12:59 | disposition home or self-care (01) ==
LOC: ERS 09:45
DX: K46.9 Unspecified abdominal hernia without obstruction or gangrene (principal); F14.10 Cocaine abuse, uncomplicated; F12.10 Cannabis abuse, uncomplicated; F31.9 Bipolar disorder, unspecified; F41.9 Anxiety disorder, unspecified; F20.9 Schizophrenia, unspecified; F29 Unspecified psychosis not due to a substance or known physiological condition; G40.909 Epilepsy, unspecified, not intractable, without status epilepticus; B20 Human immunodeficiency virus [HIV] disease; I10 Essential (primary) hypertension; F17.210 Nicotine dependence, cigarettes, uncomplicated; Z86.73 Personal history of transient ischemic attack (TIA), and cerebral infarction without residual deficits; Z79.899 Other long term (current) drug therapy
CPT/HCPCS: 36415; 80053; 80306; 80307; 81003; 81015; 81025; 82550; 83690; 84443; 85025; 99284

== ENCOUNTER 2019-12-04 18:17 | Emergency (ER) | payer OTHER ==
[2019-12-04] MEDS ORDERED: Lorazepam 2 MG/ML VIAL ONE (18:30)
[2019-12-04 19:30] LABS: Hemoglobin 15.1 g/dL (12.0-16.0); Mean Corpuscular Hemoglobin 32.7 pg (27.0-31.0); Mean Corpuscular Volume 96.2 fL (78.0-98.0); RBC Distribution Width 13.1 % (11.5-14.5); Red Blood Cell (RBC) Count 4.63 mill/uL (4.20-5.40); White Blood Cell (WBC) Count 9.3 thou/uL (4.8-10.8)
[2019-12-04 19:41] LABS: Acetaminophen Less than 6.0 mcg/mL (10.0-30.0); Alcohol 124 mg/dL (Less than 10); Salicylate Less than 8.0 mg/dL (15.0-30.0)
[2019-12-04 19:42] LABS: ALT (SGPT) 18 U/L (8-55); AST (SGOT) 24 U/L (5-34); Albumin 4.1 g/dL (3.5-5.0); Alkaline Phosphatase 101 U/L (40-110); Anion Gap 19 mmol/L (10-20); BUN (Urea Nitrogen) 16 mg/dL (9.8-20.1); Bilirubin, Total 0.5 mg/dL (0.2-1.2); Calc. Creatinine Clearance 0 mL/min (70-130); Calcium 9.7 mg/dL (7.8-10.44); Carbon Dioxide 21 mmol/L (22-29); Chloride 103 mmol/L (98-107); Estimated GFR-MDRD 58; Globulin 3.8 g/dL (2.4-3.5); Glucose 82 mg/dL (70-105); Potassium 3.6 mmol/L (3.5-5.1); Protein, Total 7.9 g/dL (6.0-8.3); Sodium 139 mmol/L (136-145)
[2019-12-04 19:49] LABS: Bacteria/HPF None Seen HPF (None Seen); Bilirubin Negative (Negative); Blood, Urine Trace (Negative); Clarity Clear (Clear); Glucose, Urine (Dipstick) Normal (Negative); Leukocyte 25 Leu/uL (Negative); Nitrite Negative (Negative); Protein, Urine (Dipstick) Negative (Neg-Trace); RBC/HPF 0-3 HPF (0-3); Squamous Epithelial 0-3 HPF (0-3); Urobilinogen Normal mg/dL (Less than 2); WBC/HPF 0-3 HPF (0-3)
[2019-12-04 19:51] LABS: #Basophils 0.1 thou/uL (0.0-0.2); #Eosinphils 0.1 thou/uL (0.0-0.7); #Lymphocytes 4.5 thou/uL (1.20-3.40); #Monocytes 0.6 thou/uL (0.11-0.59); %Basophils 0.8 % (0.0-1.0); %Eosinophils 0.8 % (0.0-10.0); %Lymphocytes 48.9 % (21.0-51.0); %Monocytes 6.3 % (0.0-10.0); %Neutrophils 43.2 % (42.0-75.0); Mean Platelet Volume 11.2 fL (7.4-10.4); Platelet Count 157 thou/uL (130-400); Platelet Morphology Comment Appears Adequate
[2019-12-04 19:56] LABS: Benzodiazepine Screen Detected (NotDetected); Cocaine Metabolite Screen Detected (NotDetected); Medtox Reader # READER 4; THC/Cannabinoid Screen Detected (NotDetected)
[2019-12-04 19:57] LABS: Amphetamine Not Detected (NotDetected); Barbiturates Screen Not Detected (NotDetected); Medtox Control Line Valid? VALID (VALID); Methadone Not Detected (NotDetected); Methamphetamine Not Detected (NotDetected); Opiate Screen Not Detected (NotDetected); Oxycodone Screen Not Detected (NotDetected); Phencyclidine (PCP) Not Detected (NotDetected); Tricyclic Screen Not Detected (NotDetected)
--- NOTE | 2019-12-04 20:37 | CT ---
CT OF THE ABDOMEN AND PELVIS WITHOUT IV CONTRAST INDICATION: Midline abdominal pain after cocaine COMPARISON: CT abdomen and pelvis with contrast dated June 12, 2018 FINDINGS: The lack of IV contrast limits evaluation of the solid organs of the abdomen and pelvis. ABDOMEN: Motion artifact limits image detail. Lung bases: There is subsegmental volume loss within the right middle lobe Liver: Unopacified liver is unremarkable Gallbladder: Normal appearing. Pancreas: Normal. Adrenal glands: Normal. Spleen: Normal. Kidneys and ureters: Normal. No hydronephrosis. Vasculature: There are moderate vascular calcifications seen involving the visualized vasculature. Lymph nodes:No lymphadenopathy. Free fluid in abdomen:No free fluid is evident. PELVIS: Small and large bowel: Normal Appendix:Normal Bladder: Normal. Rectal and perirectal soft tissues:Normal. Reproductive structures: Normal. Free fluid in pelvis: No free fluid is evident. Lymphadenopathy pelvis: No lymphadenopathy is evident. Osseous structures: No acute osseous abnormality. No destructive osteolytic or osteoblastic lesion i s identified. There is scattered degenerative and osteoarthritic changes. Soft tissues:There is a stable supraumbilical, subxiphoid abdominal wall hernia containing fat and pe ritoneal fluid. The abdominal wall hernia mouth measures 1.4 cm. IMPRESSION: 1. Abdominal wall hernia as above
--- NOTE | 2019-12-05 12:05 | EKG ---
Test Reason : Blood Pressure : / mmHG Vent. Rate : 066 BPM Atrial Rate : 066 BPM P-R Int : 168 ms QRS Dur : 096 ms QT Int : 448 ms P-R-T Axes : 054 039 053 degrees QTc Int : 469 ms Normal sinus rhythm Left atrial enlargement T wave abnormality, consider anterior ischemia Abnormal ECG Confirmed by SHANTEL PAUL, SAMANTHA Metz ([id number]), acquisitions editor MJ JIMENEZ ([id number]) on 12/05/2019 12:05:28 PM Referred By: Confirmed By:SAMANTHA FUNES MD
== END 2019-12-05 01:50 | disposition home or self-care (01) ==
LOC: ERS 18:17
DX: K43.9 Ventral hernia without obstruction or gangrene (principal); F43.20 Adjustment disorder, unspecified; F10.129 Alcohol abuse with intoxication, unspecified; Y90.2 Blood alcohol level of 40-59 mg/100 ml; F14.10 Cocaine abuse, uncomplicated; B20 Human immunodeficiency virus [HIV] disease; G40.909 Epilepsy, unspecified, not intractable, without status epilepticus; I10 Essential (primary) hypertension; F41.9 Anxiety disorder, unspecified; F31.9 Bipolar disorder, unspecified; F20.9 Schizophrenia, unspecified; F17.210 Nicotine dependence, cigarettes, uncomplicated; Z79.899 Other long term (current) drug therapy
CPT/HCPCS: 74176; 80053; 80306; 80307; 81003; 81015; 84443; 85025; 93005; 96374; J2060

== ENCOUNTER 2020-03-30 17:51 | Emergency (ER) | payer OTHER ==
[2020-03-30] MEDS ORDERED: Ketorolac Tromethamine 30 MG/ML VIAL ONE (19:05)
== END 2020-03-30 19:36 | disposition home or self-care (01) ==
LOC: ERS 17:51
DX: K43.9 Ventral hernia without obstruction or gangrene (principal); B20 Human immunodeficiency virus [HIV] disease; G40.909 Epilepsy, unspecified, not intractable, without status epilepticus; I10 Essential (primary) hypertension; F31.9 Bipolar disorder, unspecified; F41.9 Anxiety disorder, unspecified; F20.9 Schizophrenia, unspecified; F17.210 Nicotine dependence, cigarettes, uncomplicated; Z79.899 Other long term (current) drug therapy
CPT/HCPCS: 96374; J1885

== ENCOUNTER 2020-07-02 18:43 | Emergency (ER) | payer OTHER ==
[2020-07-02] MEDS ORDERED: Ondansetron PF 4 MG/2 ML Vial ONE ×2 (19:13)
[2020-07-02 19:31] LABS: #Lymphocytes 3.3 thou/uL (1.20-3.40); #Monocytes 0.5 thou/uL (0.11-0.59); #Neutrophils 6.1 thou/uL (1.40-6.50); %Basophils 0.4 % (0.0-1.0); %Eosinophils 0.2 % (0.0-10.0); %Lymphocytes 32.9 % (21.0-51.0); %Monocytes 5.3 % (0.0-10.0); %Neutrophils 61.2 % (42.0-75.0); Hemoglobin 15.4 g/dL (12.0-16.0); Mean Corpuscular HGB CONC 33.6 g/dL (32.0-36.0); Mean Corpuscular Hemoglobin 32.6 pg (27.0-31.0); Mean Corpuscular Volume 96.9 fL (78.0-98.0); Mean Platelet Volume 10.5 fL (7.4-10.4); Platelet Count 166 thou/uL (130-400); RBC Distribution Width 12.8 % (11.5-14.5); Red Blood Cell (RBC) Count 4.72 mill/uL (4.20-5.40)
[2020-07-02] MEDS ORDERED: diphenhydrAMINE 50 MG/ML VIAL ONE (19:42)
--- NOTE | 2020-07-02 19:48 | RAD ---
PORTABLE CHEST: Date: 07-02-2020 History: Chest pain Comparison: 04-19-2020 FINDINGS: Lungs appear clear. Stranding in the right lower lung is stable. Heart and mediastinum unremarkable. Vascular markings normal. IMPRESSION: No acute process. POS: [facility]
[2020-07-02] MEDS ORDERED: Haloperidol Lactate 5 MG/ML VIAL SLOW IVP SCH (20:00)
[2020-07-02 20:03] LABS: PTT 29.2 sec (22.9-36.1); Prothrombin Time 13.1 sec (12.0-14.7)
[2020-07-02 20:13] LABS: ALT (SGPT) 20 U/L (8-55); AST (SGOT) 31 U/L (5-34); Albumin 4.4 g/dL (3.5-5.0); Alkaline Phosphatase 79 U/L (40-110); Anion Gap 20 mmol/L (10-20); BUN (Urea Nitrogen) 18 mg/dL (9.8-20.1); Bilirubin, Total 0.4 mg/dL (0.2-1.2); Calc. Creatinine Clearance 0 mL/min (70-130); Calcium 9.8 mg/dL (7.8-10.44); Carbon Dioxide 24 mmol/L (22-29); Chloride 101 mmol/L (98-107); Globulin 3.7 g/dL (2.4-3.5); Glucose 96 mg/dL (70-105); Potassium 4.4 mmol/L (3.5-5.1); Protein, Total 8.1 g/dL (6.0-8.3); Sodium 141 mmol/L (136-145)
[2020-07-02 21:08] LABS: Bilirubin Negative (Negative); Blood, Urine Negative (Negative); Clarity Clear (Clear); Glucose, Urine (Dipstick) Normal (Negative); Ketone, Urine Negative (Negative); Leukocyte Negative Leu/uL (Negative); Nitrite Negative (Negative); Protein, Urine (Dipstick) Negative (Neg-Trace); Specific Gravity, Urine 1.022 (1.002-1.036); Urobilinogen Normal mg/dL (Less than 2)
--- NOTE | 2020-07-02 21:08 | CT ---
CT HEAD WITHOUT CONTRAST: Indications: Headache Comparison: 08-26-2018 FINDINGS: Encephalomalacia involving the right temporal lobe and para Myron region is stable. Craniotomy wu ges involving the right temporal and frontal bone again noted. 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 There is no evidence of acute hemorrhage, mass, or infarct. No significant interval change. IMPRESSION: No acute finding. POS: [facility]
[2020-07-02 21:09] LABS: Acetaminophen Less than 6.0 mcg/mL (10.0-30.0); Alcohol 74 mg/dL (Less than 10); Salicylate Less than 8.0 mg/dL (15.0-30.0)
[2020-07-02 21:19] LABS: Amphetamine Detected (NotDetected); Barbiturates Screen Not Detected (NotDetected); Benzodiazepine Screen Not Detected (NotDetected); Cocaine Metabolite Screen Detected (NotDetected); Medtox Control Line Valid? VALID (VALID); Medtox Reader # READER 1; Methadone Not Detected (NotDetected); Methamphetamine Detected (NotDetected); Opiate Screen Not Detected (NotDetected); Oxycodone Screen Not Detected (NotDetected); Phencyclidine (PCP) Not Detected (NotDetected); THC/Cannabinoid Screen Detected (NotDetected); Tricyclic Screen Not Detected (NotDetected)
[2020-07-03] MEDS ORDERED: Acetaminophen 500 MG TAB ONE (05:53)
== END 2020-07-03 11:25 | disposition home or self-care (01) ==
LOC: ERS 18:43
DX: R51.9 Headache, unspecified (principal); R45.851 Suicidal ideations; I10 Essential (primary) hypertension; F17.210 Nicotine dependence, cigarettes, uncomplicated; Z79.899 Other long term (current) drug therapy
CPT/HCPCS: 51701; 70450; 71045; 80053; 80306; 80307; 81003; 82550; 84443; 84484; 85025; 85610; 85730; 93005; 94760; 96374; 96375; J1200; J1630; J2405

== ENCOUNTER 2020-07-20 18:53 | Emergency (ER) | payer OTHER ==
[2020-07-20 19:23] LABS: #Basophils 0.1 thou/uL (0.0-0.2); #Lymphocytes 3.3 thou/uL (1.20-3.40); #Monocytes 0.7 thou/uL (0.11-0.59); #Neutrophils 4.4 thou/uL (1.40-6.50); %Basophils 0.8 % (0.0-1.0); %Eosinophils 0.6 % (0.0-10.0); %Lymphocytes 38.3 % (21.0-51.0); %Monocytes 8.4 % (0.0-10.0); %Neutrophils 51.9 % (42.0-75.0); Hemoglobin 14.3 g/dL (12.0-16.0); Mean Corpuscular HGB CONC 33.6 g/dL (32.0-36.0); Mean Corpuscular Volume 95.2 fL (78.0-98.0); Mean Platelet Volume 9.6 fL (7.4-10.4); Platelet Count 174 thou/uL (130-400); RBC Distribution Width 12.7 % (11.5-14.5); Red Blood Cell (RBC) Count 4.46 mill/uL (4.20-5.40); White Blood Cell (WBC) Count 8.5 thou/uL (4.8-10.8)
[2020-07-20 19:40] LABS: Acetaminophen Less than 6.0 mcg/mL (10.0-30.0); Alcohol Less than 10 mg/dL (Less than 10); Salicylate Less than 8.0 mg/dL (15.0-30.0)
[2020-07-20 19:42] LABS: ALT (SGPT) 26 U/L (8-55); AST (SGOT) 31 U/L (5-34); Albumin 4.3 g/dL (3.5-5.0); Alkaline Phosphatase 82 U/L (40-110); Anion Gap 15 mmol/L (10-20); BUN (Urea Nitrogen) 18 mg/dL (9.8-20.1); Bilirubin, Total 0.3 mg/dL (0.2-1.2); CK (CPK) 265 U/L (29-168); Calc. Creatinine Clearance 0 mL/min (70-130); Calcium 9.5 mg/dL (7.8-10.44); Carbon Dioxide 23 mmol/L (22-29); Chloride 103 mmol/L (98-107); Globulin 3.7 g/dL (2.4-3.5); Glucose 93 mg/dL (70-105); Lipase 29 U/L (8-78); Potassium 4.1 mmol/L (3.5-5.1); Sodium 137 mmol/L (136-145)
[2020-07-20] MEDS ORDERED: Morphine 2 MG/ML VIAL ONE (20:33)
[2020-07-20] MEDS ORDERED: Aspirin 325 MG TAB ONE (20:33)
[2020-07-20] MEDS ORDERED: Ketorolac Tromethamine 30 MG/ML VIAL ONE (20:34)
[2020-07-20 20:38] LABS: SARS-CoV-2 NAA Rapid Test Not Detected (NotDetected)
[2020-07-20 21:14] LABS: Amphetamine Not Detected (NotDetected); Barbiturates Screen Not Detected (NotDetected); Benzodiazepine Screen Not Detected (NotDetected); Cocaine Metabolite Screen Detected (NotDetected); Medtox Control Line Valid? VALID (VALID); Medtox Reader # READER 4; Methadone Not Detected (NotDetected); Methamphetamine Not Detected (NotDetected); Opiate Screen Not Detected (NotDetected); Oxycodone Screen Not Detected (NotDetected); Phencyclidine (PCP) Not Detected (NotDetected); THC/Cannabinoid Screen Detected (NotDetected); Tricyclic Screen Not Detected (NotDetected)
== END 2020-07-20 23:04 | disposition home or self-care (01) ==
LOC: ERS 18:53
DX: R07.89 Other chest pain (principal); L02.02 Furuncle of face; L02.223 Furuncle of chest wall; Z20.822 Contact with and (suspected) exposure to COVID-19; L08.9 Local infection of the skin and subcutaneous tissue, unspecified; G40.909 Epilepsy, unspecified, not intractable, without status epilepticus; Z21 Asymptomatic human immunodeficiency virus [HIV] infection status; I10 Essential (primary) hypertension; Z86.73 Personal history of transient ischemic attack (TIA), and cerebral infarction without residual deficits; F17.210 Nicotine dependence, cigarettes, uncomplicated
CPT/HCPCS: 0240U; 36415; 71045; 80053; 80306; 80307; 82550; 83690; 84443; 84484; 85025; 93005; 96374; 96375; J1885; J2270

== ENCOUNTER 2020-10-20 16:26 | Emergency (ER) | payer OTHER ==
[~2020-10-20 16:26] MED LIST changes: -Amlodipine 10 MG TAB PO SCH; +Iopamidol-370 76% 500 ML 1 ML ONE; -diphenhydrAMINE 25 MG CAP ONE
[2020-10-20] MEDS ORDERED: Midazolam HCl 2 mg/2 ml Vial ONE (16:35)
[2020-10-20 16:50] LABS: #Basophils 0.1 thou/uL (0.0-0.2); #Eosinphils 0.1 thou/uL (0.0-0.7); #Lymphocytes 3.1 thou/uL (1.20-3.40); #Monocytes 0.7 thou/uL (0.11-0.59); #Neutrophils 3.6 thou/uL (1.40-6.50); %Basophils 0.9 % (0.0-1.0); %Eosinophils 0.8 % (0.0-10.0); %Lymphocytes 41.3 % (21.0-51.0); %Monocytes 8.7 % (0.0-10.0); %Neutrophils 48.3 % (42.0-75.0); Mean Corpuscular HGB CONC 33.6 g/dL (32.0-36.0); Mean Corpuscular Hemoglobin 31.7 pg (27.0-31.0); Mean Corpuscular Volume 94.3 fL (78.0-98.0); Mean Platelet Volume 10.6 fL (7.4-10.4); Platelet Count 121 thou/uL (130-400); RBC Distribution Width 12.7 % (11.5-14.5); Red Blood Cell (RBC) Count 4.43 mill/uL (4.20-5.40); White Blood Cell (WBC) Count 7.5 thou/uL (4.8-10.8)
[2020-10-20 17:33] LABS: Acetaminophen Less than 6.0 mcg/mL (10.0-30.0); Alcohol 11 mg/dL (Less than 10); Salicylate Less than 8.0 mg/dL (15.0-30.0)
[2020-10-20 17:49] LABS: Bilirubin Negative (Negative); Blood, Urine Negative (Negative); Clarity Clear (Clear); Glucose, Urine (Dipstick) Normal (Negative); Ketone, Urine Negative (Negative); Leukocyte Negative Leu/uL (Negative); Nitrite Negative (Negative); Protein, Urine (Dipstick) Negative (Neg-Trace); Specific Gravity, Urine 1.031 (1.002-1.036); Urobilinogen Normal mg/dL (Less than 2); pH, Urine 7.5 (5.0-9.0)
[2020-10-20 17:51] LABS: Medtox Reader # READER 4
[2020-10-20 17:55] LABS: Amphetamine Not Detected (NotDetected); Barbiturates Screen Not Detected (NotDetected); Benzodiazepine Screen Not Detected (NotDetected); Cocaine Metabolite Screen Detected (NotDetected); Medtox Control Line Valid? VALID (VALID); Methadone Not Detected (NotDetected); Methamphetamine Not Detected (NotDetected); Opiate Screen Not Detected (NotDetected); Oxycodone Screen Not Detected (NotDetected); Phencyclidine (PCP) Not Detected (NotDetected); THC/Cannabinoid Screen Detected (NotDetected); Tricyclic Screen Not Detected (NotDetected)
[2020-10-20 18:26] LABS: ALT (SGPT) 29 U/L (8-55); AST (SGOT) 44 U/L (5-34); Albumin 3.9 g/dL (3.5-5.0); Alkaline Phosphatase 110 U/L (40-110); Anion Gap 15 mmol/L (10-20); BUN (Urea Nitrogen) 19 mg/dL (9.8-20.1); Bilirubin, Total 0.4 mg/dL (0.2-1.2); CK (CPK) 335 U/L (29-168); Calc. Creatinine Clearance 0 mL/min (70-130); Calcium 9.6 mg/dL (7.8-10.44); Carbon Dioxide 21 mmol/L (22-29); Chloride 105 mmol/L (98-107); Globulin 3.5 g/dL (2.4-3.5); Glucose 93 mg/dL (70-105); Potassium 4.4 mmol/L (3.5-5.1); Protein, Total 7.4 g/dL (6.0-8.3); Sodium 137 mmol/L (136-145)
== END 2020-10-20 18:40 | disposition home or self-care (01) ==
LOC: ERS 16:26
DX: R07.89 Other chest pain (principal); Z79.899 Other long term (current) drug therapy; Z21 Asymptomatic human immunodeficiency virus [HIV] infection status; I10 Essential (primary) hypertension; F17.210 Nicotine dependence, cigarettes, uncomplicated
CPT/HCPCS: 71275; 74174; 80053; 80306; 80307; 81003; 82550; 83880; 84484; 85025; 93005; 96374; J2250; Q9967

== ENCOUNTER 2021-04-21 14:16 | Emergency (ER) | payer OTHER ==
[2021-04-21] MEDS ORDERED: Amlodipine 5 MG TAB ONE (14:49)
[2021-04-21] MEDS ORDERED: Ondansetron ODT 8 MG TAB ONE (14:49)
[2021-04-21] MEDS ORDERED: levETIRAcetam 500 MG TAB PO SCH (15:30)
[2021-04-21 15:35] LABS: Mean Corpuscular HGB CONC 34.1 g/dL (32.0-36.0); Mean Corpuscular Hemoglobin 31.9 pg (27.0-31.0); Mean Corpuscular Volume 93.7 fL (78.0-98.0); RBC Distribution Width 13.9 % (11.5-14.5); White Blood Cell (WBC) Count 4.5 thou/uL (4.8-10.8)
[2021-04-21 15:53] LABS: Lymphocytes 39 % (21-51); MDiff Complete? YES; Mean Platelet Volume 10.4 fL (7.4-10.4); Monocytes 7 % (0-10); Neutrophil 45 % (42-75); Platelet Count 118 thou/uL (130-400); Platelet Morphology Comment Appears Decreased; Reactive Lymphocytes 9 % (0-10); Target Cells SLIGHT = 2-5 cells (100X) (0-1/hpf)
[2021-04-21 16:02] LABS: Albumin 4.8 g/dL (3.5-5.0)
[2021-04-21 16:03] LABS: Chloride 107 mmol/L (98-107); Sodium 138 mmol/L (136-145)
[2021-04-21 16:04] LABS: Calcium 9.7 mg/dL (7.8-10.44); Glucose 75 mg/dL (70-105)
[2021-04-21 16:05] LABS: Globulin 3.8 g/dL (2.4-3.5); Protein, Total 8.6 g/dL (6.0-8.3)
[2021-04-21 16:06] LABS: Anion Gap 23 mmol/L (10-20); Bilirubin, Total 0.5 mg/dL (0.2-1.2); Carbon Dioxide 13 mmol/L (22-29)
[2021-04-21 16:07] LABS: Alkaline Phosphatase 108 U/L (40-110)
[2021-04-21 16:08] LABS: Calc. Creatinine Clearance 0 mL/min (70-130)
[2021-04-21 16:09] LABS: BUN (Urea Nitrogen) 18 mg/dL (9.8-20.1)
[2021-04-21 16:10] LABS: ALT (SGPT) 21 U/L (8-55); AST (SGOT) 46 U/L (5-34)
[2021-04-21 16:51] LABS: Bacteria/HPF None Seen HPF (None Seen); Bilirubin Negative (Negative); Blood, Urine Trace (Negative); Clarity Clear (Clear); Glucose, Urine (Dipstick) Normal (Negative); Ketone, Urine Negative (Negative); Leukocyte Negative Leu/uL (Negative); Nitrite Negative (Negative); Protein, Urine (Dipstick) Negative (Neg-Trace); RBC/HPF 0-3 HPF (0-3); Specific Gravity, Urine 1.017 (1.002-1.036); Squamous Epithelial 0-3 HPF (0-3); Urobilinogen Normal mg/dL (Less than 2); WBC/HPF 0-3 HPF (0-3)
== END 2021-04-21 16:45 | disposition home or self-care (01) ==
LOC: ERS 14:16
DX: G40.909 Epilepsy, unspecified, not intractable, without status epilepticus (principal); I10 Essential (primary) hypertension; F17.210 Nicotine dependence, cigarettes, uncomplicated; Z79.899 Other long term (current) drug therapy
CPT/HCPCS: 71045; 80053; 81003; 81015; 84484; 85025; 93005; Q0162

== ENCOUNTER 2021-04-27 18:43 | Emergency (ER) | payer OTHER ==
[2021-04-27 20:04] LABS: Hemoglobin 14.5 g/dL (12.0-16.0); Mean Corpuscular HGB CONC 33.7 g/dL (32.0-36.0); Mean Corpuscular Volume 94.9 fL (78.0-98.0); Mean Platelet Volume 10.5 fL (7.4-10.4); Platelet Count 129 thou/uL (130-400); RBC Distribution Width 13.9 % (11.5-14.5); Red Blood Cell (RBC) Count 4.55 mill/uL (4.20-5.40); White Blood Cell (WBC) Count 5.8 thou/uL (4.8-10.8)
[2021-04-27 20:23] LABS: Large Platelets SLIGHT; Lymphocytes 62 % (21-51); MDiff Complete? YES; Monocytes 6 % (0-10); Neutrophil 31 % (42-75); Platelet Morphology Comment Appears Decreased; RBC Morphology Normal
[2021-04-27 20:25] LABS: ALT (SGPT) 22 U/L (8-55); AST (SGOT) 33 U/L (5-34); Albumin 3.9 g/dL (3.5-5.0); Alkaline Phosphatase 82 U/L (40-110); Anion Gap 16 mmol/L (10-20); BUN (Urea Nitrogen) 22 mg/dL (9.8-20.1); Bilirubin, Total 0.2 mg/dL (0.2-1.2); Calc. Creatinine Clearance 0 mL/min (70-130); Calcium 9.3 mg/dL (7.8-10.44); Carbon Dioxide 23 mmol/L (22-29); Chloride 102 mmol/L (98-107); Glucose 90 mg/dL (70-105); Protein, Total 7.9 g/dL (6.0-8.3); Sodium 136 mmol/L (136-145)
[2021-04-27] MEDS ORDERED: Acetaminophen 500 MG TAB ONE (21:24)
== END 2021-04-27 22:15 | disposition home or self-care (01) ==
LOC: ERS 18:43
DX: R04.0 Epistaxis (principal); B20 Human immunodeficiency virus [HIV] disease; R51.9 Headache, unspecified; F19.10 Other psychoactive substance abuse, uncomplicated; I10 Essential (primary) hypertension; F17.200 Nicotine dependence, unspecified, uncomplicated
CPT/HCPCS: 36415; 70450; 80053; 85025; 85730

== ENCOUNTER 2021-05-26 17:17 | Emergency (ER) | payer OTHER ==
[2021-05-26 18:08] LABS: #Basophils 0.1 thou/uL (0.0-0.2); #Eosinphils 0.1 thou/uL (0.0-0.7); #Lymphocytes 3.9 thou/uL (1.20-3.40); #Monocytes 0.5 thou/uL (0.11-0.59); #Neutrophils 3.7 thou/uL (1.40-6.50); %Basophils 1.2 % (0.0-1.0); %Eosinophils 1.5 % (0.0-10.0); %Lymphocytes 46.8 % (21.0-51.0); %Neutrophils 44.6 % (42.0-75.0); Hemoglobin 15.2 g/dL (12.0-16.0); Mean Corpuscular HGB CONC 33.6 g/dL (32.0-36.0); Mean Corpuscular Hemoglobin 32.2 pg (27.0-31.0); Mean Platelet Volume 9.8 fL (7.4-10.4); Platelet Count 153 thou/uL (130-400); RBC Distribution Width 14.2 % (11.5-14.5); White Blood Cell (WBC) Count 8.3 thou/uL (4.8-10.8)
[2021-05-26 18:13] LABS: Bacteria/HPF None Seen HPF (None Seen); Bilirubin Negative (Negative); Blood, Urine Trace (Negative); Clarity Clear (Clear); Glucose, Urine (Dipstick) Normal (Negative); Ketone, Urine Negative (Negative); Leukocyte Negative Leu/uL (Negative); Nitrite Negative (Negative); Protein, Urine (Dipstick) 10 mg/dL (Neg-Trace); RBC/HPF 0-3 HPF (0-3); Specific Gravity, Urine 1.012 (1.002-1.036); Squamous Epithelial 0-3 HPF (0-3); Urobilinogen Normal mg/dL (Less than 2); WBC/HPF 0-3 HPF (0-3)
[2021-05-26] MEDS ORDERED: Morphine 4 MG/ML VIAL ONE (18:30)
[2021-05-26 18:31] LABS: ALT (SGPT) 23 U/L (8-55); AST (SGOT) 29 U/L (5-34); Albumin 4.2 g/dL (3.5-5.0); Alkaline Phosphatase 98 U/L (40-110); Anion Gap 17 mmol/L (10-20); BUN (Urea Nitrogen) 12 mg/dL (9.8-20.1); Bilirubin, Total 0.4 mg/dL (0.2-1.2); CK (CPK) 278 U/L (29-168); Calc. Creatinine Clearance 0 mL/min (70-130); Calcium 9.4 mg/dL (7.8-10.44); Carbon Dioxide 21 mmol/L (22-29); Chloride 103 mmol/L (98-107); Globulin 3.7 g/dL (2.4-3.5); Glucose 87 mg/dL (70-105); Lipase 20 U/L (8-78); Magnesium 1.8 mg/dL (1.6-2.6); Potassium 3.8 mmol/L (3.5-5.1); Protein, Total 7.9 g/dL (6.0-8.3); Sodium 137 mmol/L (136-145)
[2021-05-26] MEDS ORDERED: Ketorolac Tromethamine 30 MG/ML VIAL ONE (18:31)
[2021-05-26] MEDS ORDERED: Labetalol HCl 100 MG/20 ML VIAL ONE (18:31)
[2021-05-26 18:47] LABS: Acetaminophen Less than 6.0 mcg/mL (10.0-30.0); Alcohol 53 mg/dL (Less than 10); Salicylate Less than 8.0 mg/dL (15.0-30.0)
[2021-05-26] MEDS ORDERED: Ondansetron PF 4 MG/2 ML Vial ONE (18:48)
[2021-05-26 19:03] LABS: Amphetamine Not Detected (NotDetected); Barbiturates Screen Not Detected (NotDetected); Benzodiazepine Screen Not Detected (NotDetected); Cocaine Metabolite Screen Not Detected (NotDetected); Methadone Not Detected (NotDetected); Methamphetamine Not Detected (NotDetected); Opiate Screen Not Detected (NotDetected); Oxycodone Screen Not Detected (NotDetected); Phencyclidine (PCP) Not Detected (NotDetected); THC/Cannabinoid Screen Detected (NotDetected); Tricyclic Screen Not Detected (NotDetected)
[2021-05-26] MEDS ORDERED: Haloperidol Lactate 5 MG/ML VIAL ONE (19:50)
[2021-05-26] MEDS ORDERED: diphenhydrAMINE 50 MG/ML VIAL ONE (19:50)
[2021-05-26 21:20] LABS: Troponin I 0.015 ng/mL (< 0.028)
== END 2021-05-26 20:50 | disposition home or self-care (01) ==
LOC: ERS 17:17
DX: R07.89 Other chest pain (principal); R11.10 Vomiting, unspecified; F12.90 Cannabis use, unspecified, uncomplicated; R05.9 Cough, unspecified; G40.909 Epilepsy, unspecified, not intractable, without status epilepticus; B20 Human immunodeficiency virus [HIV] disease; F17.210 Nicotine dependence, cigarettes, uncomplicated
CPT/HCPCS: 36415; 71045; 80053; 80306; 80307; 81003; 81015; 82550; 83690; 83735; 84443; 84484; 85025; 85379; 93005; 96374; 96375; J1200; J1630; J1885; J2270; J2405

== ENCOUNTER 2021-06-08 15:04 | Inpatient (IN) | payer OTHER ==
[2021-06-08] MEDS ORDERED: hydrALAZINE 20 MG/ML VIAL ONE (15:34)
[2021-06-08 15:44] LABS: #Basophils 0.1 thou/uL (0.0-0.2); #Eosinphils 0.1 thou/uL (0.0-0.7); #Lymphocytes 2.6 thou/uL (1.20-3.40); #Monocytes 0.7 thou/uL (0.11-0.59); #Neutrophils 4.2 thou/uL (1.40-6.50); %Basophils 1.2 % (0.0-1.0); %Eosinophils 1.2 % (0.0-10.0); %Monocytes 9.4 % (0.0-10.0); %Neutrophils 54.3 % (42.0-75.0); Hemoglobin 14.7 g/dL (12.0-16.0); Mean Corpuscular HGB CONC 35.1 g/dL (32.0-36.0); Mean Corpuscular Hemoglobin 32.8 pg (27.0-31.0); Mean Corpuscular Volume 93.5 fL (78.0-98.0); Mean Platelet Volume 10.2 fL (7.4-10.4); Platelet Count 144 thou/uL (130-400); RBC Distribution Width 13.6 % (11.5-14.5); Red Blood Cell (RBC) Count 4.46 mill/uL (4.20-5.40); White Blood Cell (WBC) Count 7.7 thou/uL (4.8-10.8)
[2021-06-08 16:05] LABS: Acetaminophen Less than 6.0 mcg/mL (10.0-30.0); Alcohol Less than 10 mg/dL (Less than 10); Salicylate Less than 8.0 mg/dL (15.0-30.0)
[2021-06-08 16:10] LABS: Bacteria/HPF None Seen HPF (None Seen); Bilirubin Negative (Negative); Blood, Urine 2+ (Negative); Clarity Clear (Clear); Glucose, Urine (Dipstick) Normal (Negative); Ketone, Urine Trace mg/dL (Negative); Leukocyte Negative Leu/uL (Negative); Nitrite Negative (Negative); Protein, Urine (Dipstick) 30 mg/dL (Neg-Trace); Specific Gravity, Urine 1.023 (1.002-1.036); Squamous Epithelial 0-3 HPF (0-3); Urobilinogen Normal mg/dL (Less than 2); pH, Urine 5.5 (5.0-9.0)
[2021-06-08 16:12] LABS: Amphetamine Not Detected (NotDetected); Barbiturates Screen Not Detected (NotDetected); Benzodiazepine Screen Not Detected (NotDetected); Cocaine Metabolite Screen Not Detected (NotDetected); Methadone Not Detected (NotDetected); Methamphetamine Not Detected (NotDetected); Opiate Screen Not Detected (NotDetected); Oxycodone Screen Not Detected (NotDetected); Phencyclidine (PCP) Not Detected (NotDetected); THC/Cannabinoid Screen Detected (NotDetected); Tricyclic Screen Not Detected (NotDetected)
[2021-06-08 16:17] LABS: ALT (SGPT) 20 U/L (8-55); AST (SGOT) 21 U/L (5-34); Albumin 3.9 g/dL (3.5-5.0); Alkaline Phosphatase 99 U/L (40-110); BUN (Urea Nitrogen) 8 mg/dL (9.8-20.1); Bilirubin, Total 0.5 mg/dL (0.2-1.2); Calc. Creatinine Clearance 0 mL/min (70-130); Calcium 9.7 mg/dL (7.8-10.44); Carbon Dioxide 20 mmol/L (22-29); Chloride 106 mmol/L (98-107); Globulin 3.7 g/dL (2.4-3.5); Glucose 112 mg/dL (70-105); Lipase 20 U/L (8-78); Potassium 3.4 mmol/L (3.5-5.1); Protein, Total 7.6 g/dL (6.0-8.3); Sodium 137 mmol/L (136-145)
[2021-06-08 16:26] LABS: Anion Gap 14 mmol/L (10-20)
[2021-06-08] MEDS ORDERED: Nitroglycerin 2% Ointment 1 INCH/1 GM Packet ONE (16:35)
[2021-06-08] MEDS ORDERED: Ondansetron PF 4 MG/2 ML Vial ONE ×2 (16:35→18:06)
[2021-06-08] MEDS ORDERED: Ondansetron PF 4 MG/2 ML Vial IVP PRN (17:45)
[2021-06-08] MEDS ORDERED: Ondansetron ODT 4 MG TAB SL PRN (17:45)
[2021-06-08 19:21] LABS: Troponin I Less than 0.010 ng/mL (< 0.028)
[2021-06-08] MEDS ORDERED: Senokot S 8.6-50 MG TAB PO PRN (20:50)
[2021-06-08 21:29] LABS: SARS-CoV-2 NAA Rapid Test DETECTED (NotDetected)
[2021-06-08 22:01] LABS: Hemoglobin A1c 4.9 % (4.0-6.0)
[2021-06-08] MEDS ORDERED: Ipratropium Oral Inhaler INH PRN (22:10)
[2021-06-08 22:11] LABS: Troponin I Less than 0.010 ng/mL (< 0.028)
[2021-06-08] MEDS ORDERED: hydrALAZINE 20 MG/ML VIAL SLOW IVP PRN (22:15)
[2021-06-08] MEDS ORDERED: Albuterol 200 PUFF (6.7GM INHALER) INH PRN (22:25)
[2021-06-08] MEDS ORDERED: REMDESIVIR 200 MG in Sodium Chloride 0.9% 250 ML 210 ML IV SCH (23:00)
[2021-06-08 23:18] VITALS: BMI 28.8
[2021-06-08] MEDS: Nicotine 21 MG PATCH TD SCH (23:40)
[2021-06-09] MEDS: Acetaminophen 325 MG TAB PO PRN (04:01)
[2021-06-09 06:13] LABS: #Eosinphils 0.1 thou/uL (0.0-0.7); #Lymphocytes 2.2 thou/uL (1.20-3.40); #Monocytes 0.7 thou/uL (0.11-0.59); #Neutrophils 3.2 thou/uL (1.40-6.50); %Basophils 0.1 % (0.0-1.0); %Eosinophils 1.2 % (0.0-10.0); %Lymphocytes 35.7 % (21.0-51.0); %Monocytes 10.7 % (0.0-10.0); %Neutrophils 52.2 % (42.0-75.0); Hemoglobin 13.7 g/dL (12.0-16.0); Mean Corpuscular HGB CONC 33.9 g/dL (32.0-36.0); Mean Corpuscular Hemoglobin 31.9 pg (27.0-31.0); Mean Corpuscular Volume 93.8 fL (78.0-98.0); Mean Platelet Volume 10.4 fL (7.4-10.4); Platelet Count 154 thou/uL (130-400); RBC Distribution Width 13.6 % (11.5-14.5); Red Blood Cell (RBC) Count 4.29 mill/uL (4.20-5.40); White Blood Cell (WBC) Count 6.2 thou/uL (4.8-10.8)
[2021-06-09 06:38] LABS: ALT (SGPT) 17 U/L (8-55); AST (SGOT) 18 U/L (5-34); Albumin 3.7 g/dL (3.5-5.0); Alkaline Phosphatase 89 U/L (40-110); Anion Gap 12 mmol/L (10-20); BUN (Urea Nitrogen) 10 mg/dL (9.8-20.1); Bilirubin, Total 0.6 mg/dL (0.2-1.2); Calc. Creatinine Clearance 101 mL/min (70-130); Calcium 9.9 mg/dL (7.8-10.44); Carbon Dioxide 23 mmol/L (22-29); Cardiac Risk 2.1 (Less than 4.5); Chloride 106 mmol/L (98-107); Cholesterol 164 mg/dl (< 200 Desired); Globulin 3.7 g/dL (2.4-3.5); Glucose 116 mg/dL (70-105); HDL Cholesterol 80 mg/dL (>60 Neg Risk); LDL Cholesterol, Calculated 74 mg/dL; Potassium 3.4 mmol/L (3.5-5.1); Protein, Total 7.4 g/dL (6.0-8.3); Sodium 138 mmol/L (136-145); Triglycerides 52 mg/dL (Less than 150)
[2021-06-09] MEDS: PARoxetine 20 MG TAB PO SCH (08:38)
[2021-06-09] MEDS: levETIRAcetam 500 MG TAB PO SCH ×2 (08:38→20:15)
[2021-06-09] MEDS: Dexamethasone 4 MG TAB PO SCH (08:39)
[2021-06-09] MEDS: Lisinopril 10 MG TAB PO SCH (08:39)
[2021-06-09] MEDS: Amlodipine 10 MG TAB PO SCH (08:40)
[2021-06-09] MEDS: Enoxaparin Sodium 40 MG/0.4 ML SYRINGE SC SCH (08:40)
[2021-06-09] MEDS: Aspirin Chewable 81 MG TAB PO SCH (08:40)
[2021-06-09] MEDS ORDERED: FLU VACC QS2021-22(6MOS UP)/PF 60 MCG/0.5 ML SYRINGE IM ONE (09:00)
[2021-06-09] MEDS: (Bictegrav/Emtricit/Tenofov Ala [Biktarvy 50-200-25 Mg Tablet] PO SCH (16:34)
[2021-06-09] MEDS: VALBENAZINE TOSYLATE 40 MG PO SCH (16:35)
[2021-06-09] MEDS: traZODone HCl 50 MG TAB PO SCH (20:15)
[2021-06-09] MEDS: Nicotine 21 MG PATCH TD SCH (20:15)
[2021-06-09] MEDS ORDERED: REMDESIVIR 100 MG in Sodium Chloride 0.9% 250 ML 230 ML IV SCH (23:00)
[2021-06-10] MEDS: Acetaminophen 325 MG TAB PO PRN (00:45)
[2021-06-10] MEDS ORDERED: Calcium Carbonate 500 MG ChewTAB PO PRN (01:20)
[2021-06-10] MEDS ORDERED: Lidocaine 4% Topical Sol 50 ML BOT TOP SCH (01:30)
[2021-06-10 01:33] LABS: Troponin I Less than 0.010 ng/mL (< 0.028)
[2021-06-10] MEDS: Aspirin Chewable 81 MG TAB PO SCH (09:15)
[2021-06-10] MEDS: PARoxetine 20 MG TAB PO SCH (09:15)
[2021-06-10] MEDS: VALBENAZINE TOSYLATE 40 MG PO SCH (09:15)
[2021-06-10] MEDS: Dexamethasone 4 MG TAB PO SCH (09:16)
[2021-06-10] MEDS: levETIRAcetam 500 MG TAB PO SCH ×2 (09:16→20:41)
[2021-06-10] MEDS: Enoxaparin Sodium 40 MG/0.4 ML SYRINGE SC SCH (09:16)
[2021-06-10] MEDS: Lisinopril 10 MG TAB PO SCH (09:17)
[2021-06-10] MEDS: Amlodipine 10 MG TAB PO SCH (12:16)
[2021-06-10 15:13] LABS: Absolute CD4 525 /uL (359-1519); Lymphocytes/Gated Cell Count 2.5 x10E3/uL (0.7-3.1); Total Lymphocyte 39 % (Not Estab.); WBC Total Count 6.4 x10E3/uL (3.4-10.8)
[2021-06-10 16:06] LABS: Anion Gap 12 mmol/L (10-20); BUN (Urea Nitrogen) 17 mg/dL (9.8-20.1); Calc. Creatinine Clearance 90 mL/min (70-130); Calcium 9.9 mg/dL (7.8-10.44); Carbon Dioxide 27 mmol/L (22-29); Chloride 104 mmol/L (98-107); Glucose 119 mg/dL (70-105); Potassium 4.7 mmol/L (3.5-5.1); Sodium 138 mmol/L (136-145)
[2021-06-10] MEDS: (Bictegrav/Emtricit/Tenofov Ala [Biktarvy 50-200-25 Mg Tablet] PO SCH (18:38)
[2021-06-10] MEDS: traZODone HCl 50 MG TAB PO SCH (20:41)
[2021-06-10] MEDS: Nicotine 21 MG PATCH TD SCH (20:42)
[2021-06-10] MEDS ORDERED: Lisinopril 10 MG TAB PO SCH (21:00)
[2021-06-11 05:11] LABS: Anion Gap 12 mmol/L (10-20); BUN (Urea Nitrogen) 14 mg/dL (9.8-20.1); Calc. Creatinine Clearance 99 mL/min (70-130); Calcium 9.5 mg/dL (7.8-10.44); Carbon Dioxide 26 mmol/L (22-29); Chloride 105 mmol/L (98-107); Glucose 96 mg/dL (70-105); Potassium 3.8 mmol/L (3.5-5.1); Sodium 139 mmol/L (136-145)
[2021-06-11] MEDS: Lisinopril 20 MG TAB PO SCH ×2 (08:51→10:48)
[2021-06-11] MEDS: Aspirin Chewable 81 MG TAB PO SCH (08:51)
[2021-06-11] MEDS: Dexamethasone 4 MG TAB PO SCH (08:51)
[2021-06-11] MEDS: levETIRAcetam 500 MG TAB PO SCH ×2 (08:52→21:02)
[2021-06-11] MEDS: PARoxetine 20 MG TAB PO SCH (08:52)
[2021-06-11] MEDS: Enoxaparin Sodium 40 MG/0.4 ML SYRINGE SC SCH (08:52)
[2021-06-11] MEDS: Amlodipine 10 MG TAB PO SCH ×2 (08:52→10:48)
[2021-06-11] MEDS ORDERED: guaiFENesin 200 MG TAB PO PRN (10:26)
[2021-06-11] MEDS: VALBENAZINE TOSYLATE 40 MG PO SCH (10:41)
[2021-06-11] MEDS: (Bictegrav/Emtricit/Tenofov Ala [Biktarvy 50-200-25 Mg Tablet] PO SCH (10:42)
[2021-06-11 12:38] LABS: HIV-1 Quantitative, RNA PCR <20 copies/mL (.)
[2021-06-11] MEDS: Acetaminophen 325 MG TAB PO PRN (14:17)
[2021-06-11] MEDS ORDERED: Ibuprofen 600 MG TAB PO PRN (17:53)
[2021-06-11] MEDS: Nicotine 21 MG PATCH TD SCH (21:01)
[2021-06-11] MEDS: traZODone HCl 50 MG TAB PO SCH (21:02)
[2021-06-12 06:00] LABS: Anion Gap 11 mmol/L (10-20); BUN (Urea Nitrogen) 15 mg/dL (9.8-20.1); Calc. Creatinine Clearance 103 mL/min (70-130); Calcium 9.5 mg/dL (7.8-10.44); Carbon Dioxide 26 mmol/L (22-29); Chloride 105 mmol/L (98-107); Glucose 98 mg/dL (70-105); Potassium 3.9 mmol/L (3.5-5.1); Sodium 138 mmol/L (136-145)
[2021-06-12] MEDS: Enoxaparin Sodium 40 MG/0.4 ML SYRINGE SC SCH (08:15)
[2021-06-12] MEDS: Aspirin Chewable 81 MG TAB PO SCH (08:16)
[2021-06-12] MEDS: levETIRAcetam 500 MG TAB PO SCH ×2 (08:16→21:00)
[2021-06-12] MEDS: Lisinopril 20 MG TAB PO SCH (08:16)
[2021-06-12] MEDS: Dexamethasone 4 MG TAB PO SCH (08:17)
[2021-06-12] MEDS: Amlodipine 10 MG TAB PO SCH (08:17)
[2021-06-12] MEDS: PARoxetine 20 MG TAB PO SCH (08:17)
[2021-06-12] MEDS: (Bictegrav/Emtricit/Tenofov Ala [Biktarvy 50-200-25 Mg Tablet] PO SCH (08:18)
[2021-06-12] MEDS: VALBENAZINE TOSYLATE 40 MG PO SCH (08:19)
[2021-06-12] MEDS: Fluticasone Propionate Nasal Spray 16 gm Bottle NASAL SCH (08:20)
[2021-06-12] MEDS ORDERED: Polyethylene Glycol 3350 17 GM Packet PO PRN (09:51)
[2021-06-12] MEDS ORDERED: Polyethylene Glycol 3350 17 GM Packet PO SCH (10:30)
[2021-06-12] MEDS: Acetaminophen 325 MG TAB PO PRN (20:59)
[2021-06-12] MEDS: traZODone HCl 50 MG TAB PO SCH (21:00)
[2021-06-12] MEDS: Nicotine 21 MG PATCH TD SCH (21:01)
[2021-06-13] MEDS: Acetaminophen 325 MG TAB PO PRN (06:32)
[2021-06-13 06:34] LABS: Anion Gap 8 mmol/L (10-20); BUN (Urea Nitrogen) 13 mg/dL (9.8-20.1); Calc. Creatinine Clearance 103 mL/min (70-130); Calcium 9.6 mg/dL (7.8-10.44); Carbon Dioxide 30 mmol/L (22-29); Chloride 105 mmol/L (98-107); Glucose 94 mg/dL (70-105); Potassium 4.2 mmol/L (3.5-5.1); Sodium 139 mmol/L (136-145)
[2021-06-13] MEDS: Aspirin Chewable 81 MG TAB PO SCH (09:23)
[2021-06-13] MEDS: Dexamethasone 4 MG TAB PO SCH (09:23)
[2021-06-13] MEDS: PARoxetine 20 MG TAB PO SCH (09:24)
[2021-06-13] MEDS: Lisinopril 20 MG TAB PO SCH (09:24)
[2021-06-13] MEDS: levETIRAcetam 500 MG TAB PO SCH ×2 (09:25→20:49)
[2021-06-13] MEDS: Amlodipine 10 MG TAB PO SCH (09:25)
[2021-06-13] MEDS: Enoxaparin Sodium 40 MG/0.4 ML SYRINGE SC SCH (09:25)
[2021-06-13] MEDS: Fluticasone Propionate Nasal Spray 16 gm Bottle NASAL SCH (09:26)
[2021-06-13] MEDS: VALBENAZINE TOSYLATE 40 MG PO SCH (09:27)
[2021-06-13] MEDS: (Bictegrav/Emtricit/Tenofov Ala [Biktarvy 50-200-25 Mg Tablet] PO SCH (09:27)
[2021-06-13] MEDS ORDERED: Lactated Ringer's 500 ML IV SCH (13:00)
[2021-06-13] MEDS: Nicotine 21 MG PATCH TD SCH (20:49)
[2021-06-13] MEDS: traZODone HCl 50 MG TAB PO SCH (20:50)
[2021-06-14 05:37] LABS: Anion Gap 9 mmol/L (10-20); BUN (Urea Nitrogen) 15 mg/dL (9.8-20.1); Calc. Creatinine Clearance 99 mL/min (70-130); Calcium 9.6 mg/dL (7.8-10.44); Carbon Dioxide 28 mmol/L (22-29); Chloride 106 mmol/L (98-107); Glucose 97 mg/dL (70-105); Sodium 139 mmol/L (136-145)
[2021-06-14] MEDS: Dexamethasone 4 MG TAB PO SCH (08:48)
[2021-06-14] MEDS: levETIRAcetam 500 MG TAB PO SCH ×2 (08:49→20:52)
[2021-06-14] MEDS: Aspirin Chewable 81 MG TAB PO SCH (08:49)
[2021-06-14] MEDS: PARoxetine 20 MG TAB PO SCH (08:51)
[2021-06-14] MEDS: VALBENAZINE TOSYLATE 40 MG PO SCH (08:51)
[2021-06-14] MEDS: Enoxaparin Sodium 40 MG/0.4 ML SYRINGE SC SCH (08:54)
[2021-06-14] MEDS: Lisinopril 20 MG TAB PO SCH (08:55)
[2021-06-14] MEDS: Amlodipine 10 MG TAB PO SCH (09:12)
[2021-06-14] MEDS: (Bictegrav/Emtricit/Tenofov Ala [Biktarvy 50-200-25 Mg Tablet] PO SCH (09:13)
[2021-06-14] MEDS: Fluticasone Propionate Nasal Spray 16 gm Bottle NASAL SCH (09:13)
[2021-06-14] MEDS ORDERED: Lisinopril 20 MG TAB PO SCH ×2 (09:30→09:45)
[2021-06-14] MEDS: traZODone HCl 50 MG TAB PO SCH (20:53)
[2021-06-14] MEDS: Nicotine 21 MG PATCH TD SCH (20:53)
[2021-06-14] MEDS ORDERED: Bisacodyl 5 MG TAB PO PRN (23:11)
[2021-06-15] MEDS ORDERED: Ondansetron ODT 4 MG TAB PO PRN (05:26)
[2021-06-15] MEDS: Enoxaparin Sodium 40 MG/0.4 ML SYRINGE SC SCH (08:46)
[2021-06-15] MEDS: Fluticasone Propionate Nasal Spray 16 gm Bottle NASAL SCH (08:46)
[2021-06-15] MEDS: levETIRAcetam 500 MG TAB PO SCH ×2 (08:47→20:24)
[2021-06-15] MEDS: Dexamethasone 4 MG TAB PO SCH (08:47)
[2021-06-15] MEDS: Aspirin Chewable 81 MG TAB PO SCH (08:48)
[2021-06-15] MEDS: Amlodipine 10 MG TAB PO SCH (08:48)
[2021-06-15] MEDS: Lisinopril 20 MG TAB PO SCH (08:49)
[2021-06-15] MEDS: VALBENAZINE TOSYLATE 40 MG PO SCH (08:49)
[2021-06-15] MEDS: PARoxetine 20 MG TAB PO SCH (08:50)
[2021-06-15] MEDS: (Bictegrav/Emtricit/Tenofov Ala [Biktarvy 50-200-25 Mg Tablet] PO SCH (20:24)
[2021-06-15] MEDS: traZODone HCl 50 MG TAB PO SCH (20:24)
[2021-06-15] MEDS: Nicotine 21 MG PATCH TD SCH (20:26)
[2021-06-16 06:36] LABS: Anion Gap 14 mmol/L (10-20); BUN (Urea Nitrogen) 12 mg/dL (9.8-20.1); Calc. Creatinine Clearance 86 mL/min (70-130); Calcium 9.5 mg/dL (7.8-10.44); Carbon Dioxide 24 mmol/L (22-29); Chloride 105 mmol/L (98-107); Glucose 128 mg/dL (70-105); Potassium 3.5 mmol/L (3.5-5.1); Sodium 139 mmol/L (136-145)
[2021-06-16] MEDS ORDERED: guaiFENesin/Codeine 200 mg/20 mg 10 ml Cup PO PRN (08:58)
[2021-06-16] MEDS: Lisinopril 20 MG TAB PO SCH (09:00)
[2021-06-16] MEDS: Enoxaparin Sodium 40 MG/0.4 ML SYRINGE SC SCH (09:00)
[2021-06-16] MEDS: Amlodipine 10 MG TAB PO SCH (09:00)
[2021-06-16] MEDS: Aspirin Chewable 81 MG TAB PO SCH (09:00)
[2021-06-16] MEDS: Dexamethasone 4 MG TAB PO SCH (09:00)
[2021-06-16] MEDS: levETIRAcetam 500 MG TAB PO SCH ×2 (09:00→20:20)
[2021-06-16] MEDS: (Bictegrav/Emtricit/Tenofov Ala [Biktarvy 50-200-25 Mg Tablet] PO SCH (09:01)
[2021-06-16] MEDS: VALBENAZINE TOSYLATE 40 MG PO SCH (09:01)
[2021-06-16] MEDS: Fluticasone Propionate Nasal Spray 16 gm Bottle NASAL SCH (09:02)
[2021-06-16] MEDS: PARoxetine 20 MG TAB PO SCH (09:02)
[2021-06-16] MEDS: Benzonatate 100 MG CAP PO SCH ×3 (09:04→20:20)
[2021-06-16] MEDS ORDERED: hydrOXYzine 25 MG TAB PO PRN (11:03)
[2021-06-16] MEDS: Nicotine 21 MG PATCH TD SCH (20:20)
[2021-06-16] MEDS: traZODone HCl 50 MG TAB PO SCH (23:33)
[2021-06-17] MEDS: levETIRAcetam 500 MG TAB PO SCH (08:53)
[2021-06-17] MEDS: Enoxaparin Sodium 40 MG/0.4 ML SYRINGE SC SCH (08:53)
[2021-06-17] MEDS: Amlodipine 10 MG TAB PO SCH (08:53)
[2021-06-17] MEDS: Benzonatate 100 MG CAP PO SCH ×2 (08:54→15:41)
[2021-06-17] MEDS: Fluticasone Propionate Nasal Spray 16 gm Bottle NASAL SCH (08:54)
[2021-06-17] MEDS: Lisinopril 20 MG TAB PO SCH (08:54)
[2021-06-17] MEDS: Aspirin Chewable 81 MG TAB PO SCH (08:54)
[2021-06-17] MEDS: Dexamethasone 4 MG TAB PO SCH (08:54)
[2021-06-17] MEDS: (Bictegrav/Emtricit/Tenofov Ala [Biktarvy 50-200-25 Mg Tablet] PO SCH (08:55)
[2021-06-17] MEDS: VALBENAZINE TOSYLATE 40 MG PO SCH (08:55)
[2021-06-17] MEDS: PARoxetine 20 MG TAB PO SCH (08:55)
[2021-06-17 12:29] VITALS: TEMP 97.6
[2021-06-17 15:52] VITALS: BP 97/66
[2021-06-18] MEDS ORDERED: Dexamethasone 4 MG TAB PO SCH (08:00)
== END 2021-06-17 16:42 | DRG 976 ==
LOC: ERS 15:04 → 2SW 17:24 → OBSVTOIN 06-10 14:27
PROVIDERS: ADMIT Family Medicine; ATTEND Family Medicine
PROC: 8E0ZXY6 Isolation (ICD-10-PCS; principal; 2021-06-10)
PROC: 3E0333Z Introduction of Anti-inflammatory into Peripheral Vein, Percutaneous Approach (ICD-10-PCS; 2021-06-10)
DX: U07.1 COVID-19 (principal); B20 Human immunodeficiency virus [HIV] disease; J12.82 Pneumonia due to coronavirus disease 2019; I16.0 Hypertensive urgency; R94.31 Abnormal electrocardiogram [ECG] [EKG]; G40.909 Epilepsy, unspecified, not intractable, without status epilepticus; F41.9 Anxiety disorder, unspecified; F32.A Depression, unspecified; F20.9 Schizophrenia, unspecified; E78.5 Hyperlipidemia, unspecified; I10 Essential (primary) hypertension; F17.210 Nicotine dependence, cigarettes, uncomplicated; F12.10 Cannabis abuse, uncomplicated; R29.6 Repeated falls; Z86.73 Personal history of transient ischemic attack (TIA), and cerebral infarction without residual deficits; Z91.14 Patient's other noncompliance with medication regimen; Z88.0 Allergy status to penicillin; Z79.899 Other long term (current) drug therapy; Z86.19 Personal history of other infectious and parasitic diseases
CPT/HCPCS: 36415; 36416; 71045; 80048; 80053; 80061; 80177; 80185; 80306; 80307; 81003; 81015; 83036; 83690; 83880; 84145; 84443; 84484; 85025; 85048; 86361; 87086; 87536; 87804; 93005; 93010; 94760; 96372; 96374; 96375; G0378; J0360; J1650; J2405; J7120; J7620; J8540; Q0162; U0002

== ENCOUNTER 2021-06-30 11:24 | Emergency (ER) | payer OTHER ==
[2021-06-30 12:18] LABS: #Basophils 0.1 thou/uL (0.0-0.2); #Lymphocytes 2.8 thou/uL (1.20-3.40); #Monocytes 0.4 thou/uL (0.11-0.59); #Neutrophils 2.5 thou/uL (1.40-6.50); %Eosinophils 0.5 % (0.0-10.0); %Lymphocytes 48.7 % (21.0-51.0); %Monocytes 7.1 % (0.0-10.0); %Neutrophils 42.8 % (42.0-75.0); Hemoglobin 14.4 g/dL (12.0-16.0); Mean Corpuscular HGB CONC 33.2 g/dL (32.0-36.0); Mean Corpuscular Hemoglobin 31.9 pg (27.0-31.0); Mean Platelet Volume 9.4 fL (7.4-10.4); Platelet Count 182 thou/uL (130-400); RBC Distribution Width 13.2 % (11.5-14.5); Red Blood Cell (RBC) Count 4.53 mill/uL (4.20-5.40); White Blood Cell (WBC) Count 5.8 thou/uL (4.8-10.8)
[2021-06-30 12:24] LABS: Bilirubin Negative (Negative); Blood, Urine Small (Negative); Glucose, Urine (Dipstick) Negative (Negative); Ketone, Urine Trace mg/dL (Negative); Leukocyte Negative (Negative); Nitrite Negative (Negative); Protein, Urine (Dipstick) Negative (Neg-Trace); Urobilinogen 0.2 mg/dL (Less than 2)
[2021-06-30] MEDS ORDERED: Sterile Water 10 ML ONE (12:24)
[2021-06-30] MEDS ORDERED: Ziprasidone 20 MG VIAL ONE (12:24)
[2021-06-30 12:27] LABS: Clarity Clear (Clear); Specific Gravity, Urine 1.023 (1.002-1.036)
[2021-06-30 12:29] LABS: RBC/HPF 0-3 HPF (0-3); Squamous Epithelial 0-3 HPF (0-3); WBC/HPF 0-3 HPF (0-3)
[2021-06-30 12:30] LABS: Acetaminophen Less than 6.0 mcg/mL (10.0-30.0); Alcohol Less than 10 mg/dL (Less than 10); Salicylate Less than 8.0 mg/dL (15.0-30.0)
[2021-06-30 12:32] LABS: ALT (SGPT) 17 U/L (8-55); AST (SGOT) 19 U/L (5-34); Albumin 4.2 g/dL (3.5-5.0); Alkaline Phosphatase 75 U/L (40-110); Anion Gap 15 mmol/L (10-20); BUN (Urea Nitrogen) 17 mg/dL (9.8-20.1); Bilirubin, Total 0.4 mg/dL (0.2-1.2); CK (CPK) 126 U/L (29-168); Calc. Creatinine Clearance 0 mL/min (70-130); Calcium 9.6 mg/dL (7.8-10.44); Carbon Dioxide 21 mmol/L (22-29); Chloride 107 mmol/L (98-107); Globulin 3.9 g/dL (2.4-3.5); Glucose 104 mg/dL (70-105); Potassium 3.6 mmol/L (3.5-5.1); Protein, Total 8.1 g/dL (6.0-8.3); Sodium 139 mmol/L (136-145)
[2021-06-30 13:39] LABS: Amphetamine Not Detected (NotDetected); Barbiturates Screen Not Detected (NotDetected); Benzodiazepine Screen Not Detected (NotDetected); Cocaine Metabolite Screen Not Detected (NotDetected); Methadone Not Detected (NotDetected); Methamphetamine Not Detected (NotDetected); Opiate Screen Not Detected (NotDetected); Oxycodone Screen Not Detected (NotDetected); Phencyclidine (PCP) Not Detected (NotDetected); THC/Cannabinoid Screen Detected (NotDetected); Tricyclic Screen Not Detected (NotDetected)
[2021-06-30] MEDS ORDERED: Lisinopril 10 MG TAB ONE (17:01)
[2021-06-30] MEDS ORDERED: Amlodipine 5 MG TAB ONE (17:01)
[2021-06-30 18:13] LABS: SARS-CoV-2 NAA Rapid Test Not Detected (NotDetected)
== END 2021-06-30 20:20 ==
LOC: ERS 11:24
DX: R45.851 Suicidal ideations (principal); R44.0 Auditory hallucinations; Z20.822 Contact with and (suspected) exposure to COVID-19; G40.909 Epilepsy, unspecified, not intractable, without status epilepticus; I10 Essential (primary) hypertension; F17.210 Nicotine dependence, cigarettes, uncomplicated; Z79.899 Other long term (current) drug therapy
CPT/HCPCS: 36415; 80053; 80306; 80307; 81003; 81015; 82550; 85025; 93005; 96372; J3486; U0002

== ENCOUNTER 2021-07-14 14:43 | Emergency (ER) | payer OTHER ==
[~2021-07-14 14:43] MED LIST changes: +Iopamidol 370 76% 100 ML VIAL ONE; -Iopamidol-370 76% 500 ML 1 ML ONE
[2021-07-14] MEDS ORDERED: Ketorolac Tromethamine 30 MG/ML VIAL ONE (15:51)
[2021-07-14] MEDS ORDERED: Morphine 4 MG/ML VIAL ONE (15:51)
[2021-07-14 16:50] LABS: Hemoglobin 13.5 g/dL (12.0-16.0); Mean Corpuscular HGB CONC 33.9 g/dL (32.0-36.0); Mean Corpuscular Volume 94.4 fL (78.0-98.0); Mean Platelet Volume 8.9 fL (7.4-10.4); Platelet Count 226 thou/uL (130-400); RBC Distribution Width 12.6 % (11.5-14.5); Red Blood Cell (RBC) Count 4.21 mill/uL (4.20-5.40); White Blood Cell (WBC) Count 10.5 thou/uL (4.8-10.8)
[2021-07-14 17:07] LABS: Eosinophils 1 % (0-10); Lymphocytes 53 % (21-51); MDiff Complete? YES; Monocytes 7 % (0-10); Neutrophil 32 % (42-75); Platelet Morphology Comment Appears Adequate; RBC Morphology Normal; Reactive Lymphocytes 6 % (0-10)
[2021-07-14 17:09] LABS: ALT (SGPT) 25 U/L (8-55); AST (SGOT) 44 U/L (5-34); Albumin 4.2 g/dL (3.5-5.0); Alkaline Phosphatase 82 U/L (40-110); Anion Gap 12 mmol/L (10-20); BUN (Urea Nitrogen) 28 mg/dL (9.8-20.1); Bilirubin, Total 0.4 mg/dL (0.2-1.2); Calc. Creatinine Clearance 0 mL/min (70-130); Calcium 9.7 mg/dL (7.8-10.44); Carbon Dioxide 23 mmol/L (22-29); Chloride 106 mmol/L (98-107); Globulin 3.5 g/dL (2.4-3.5); Glucose 104 mg/dL (70-105); Protein, Total 7.7 g/dL (6.0-8.3); Sodium 137 mmol/L (136-145)
[2021-07-14] MEDS ORDERED: Bacitracin 1 PK ONE (17:59)
== END 2021-07-14 18:41 | disposition home or self-care (01) ==
LOC: ERS 14:43
DX: G40.909 Epilepsy, unspecified, not intractable, without status epilepticus (principal); J34.89 Other specified disorders of nose and nasal sinuses; R53.1 Weakness; M79.661 Pain in right lower leg; M79.662 Pain in left lower leg; R06.02 Shortness of breath; U09.9 Post COVID-19 condition, unspecified; I10 Essential (primary) hypertension; F17.210 Nicotine dependence, cigarettes, uncomplicated; B20 Human immunodeficiency virus [HIV] disease; Z91.14 Patient's other noncompliance with medication regimen; Z87.19 Personal history of other diseases of the digestive system; Z86.73 Personal history of transient ischemic attack (TIA), and cerebral infarction without residual deficits
CPT/HCPCS: 36415; 71045; 71275; 80053; 83735; 84484; 85025; 85379; 96374; 96375; J1885; J2270; Q9967

== ENCOUNTER 2021-09-12 19:12 | Emergency (ER) | payer OTHER ==
[2021-09-12] MEDS ORDERED: Promethazine HCl 25 MG/ML VIAL ONE (19:30)
[2021-09-12 19:52] LABS: Bilirubin Negative (Negative); Blood, Urine Negative (Negative); Clarity Clear (Clear); Glucose, Urine (Dipstick) Normal (Negative); Ketone, Urine Negative (Negative); Leukocyte Negative Leu/uL (Negative); Nitrite Negative (Negative); Protein, Urine (Dipstick) Negative (Neg-Trace); Specific Gravity, Urine 1.011 (1.002-1.036); Urobilinogen Normal mg/dL (Less than 2)
[2021-09-12 20:00] LABS: Amphetamine Not Detected (NotDetected); Barbiturates Screen Not Detected (NotDetected); Benzodiazepine Screen Not Detected (NotDetected); Cocaine Metabolite Screen Detected (NotDetected); Methadone Not Detected (NotDetected); Methamphetamine Not Detected (NotDetected); Opiate Screen Not Detected (NotDetected); Oxycodone Screen Not Detected (NotDetected); Phencyclidine (PCP) Not Detected (NotDetected); THC/Cannabinoid Screen Detected (NotDetected); Tricyclic Screen Not Detected (NotDetected)
[2021-09-12 20:10] LABS: ALT (SGPT) 20 U/L (8-55); AST (SGOT) 28 U/L (5-34); Acetaminophen Less than 10.0 mcg/mL (10.0-30.0); Albumin 4.2 g/dL (3.5-5.0); Alcohol 95 mg/dL (Less than 10); Alkaline Phosphatase 98 U/L (40-110); Anion Gap 18 mmol/L (10-20); BUN (Urea Nitrogen) 20 mg/dL (9.8-20.1); Bilirubin, Total 0.4 mg/dL (0.2-1.2); Calc. Creatinine Clearance 0 mL/min (70-130); Carbon Dioxide 17 mmol/L (22-29); Chloride 104 mmol/L (98-107); Globulin 3.3 g/dL (2.4-3.5); Glucose 76 mg/dL (70-105); Protein, Total 7.5 g/dL (6.0-8.3); Salicylate Less than 8.0 mg/dL (15.0-30.0); Sodium 135 mmol/L (136-145)
[2021-09-12 20:18] LABS: Band 1 % (5-11); Hemoglobin 14.2 g/dL (12.0-16.0); Lymphocytes 58 % (21-51); MDiff Complete? YES; Mean Platelet Volume 9.9 fL (7.4-10.4); Monocytes 6 % (0-10); Neutrophil 35 % (42-75); Platelet Count 164 thou/uL (130-400); Red Blood Cell (RBC) Count 4.58 mill/uL (4.20-5.40); White Blood Cell (WBC) Count 7.4 thou/uL (4.8-10.8)
[2021-09-12] MEDS ORDERED: Nitroglycerin 0.4 MG TAB 1 EACH ONE (23:24)
[2021-09-13] MEDS ORDERED: Acetaminophen 500 MG TAB ONE (08:29)
[2021-09-13 10:17] LABS: SARS-CoV-2 NAA Rapid Test Not Detected (NotDetected)
[2021-09-13] MEDS ORDERED: Amlodipine 5 MG TAB ONE (11:02)
[2021-09-13] MEDS ORDERED: cloNIDine 0.1 MG TAB ONE (12:18)
== END 2021-09-13 14:07 ==
LOC: ERS 19:12
DX: T43.212A Poisoning by selective serotonin and norepinephrine reuptake inhibitors, intentional self-harm, initial encounter (principal); F29 Unspecified psychosis not due to a substance or known physiological condition; F20.9 Schizophrenia, unspecified; G40.909 Epilepsy, unspecified, not intractable, without status epilepticus; I10 Essential (primary) hypertension; F31.9 Bipolar disorder, unspecified; F17.210 Nicotine dependence, cigarettes, uncomplicated; Z21 Asymptomatic human immunodeficiency virus [HIV] infection status; Z79.899 Other long term (current) drug therapy; Z20.822 Contact with and (suspected) exposure to COVID-19
CPT/HCPCS: 36415; 36416; 70450; 71045; 80053; 80306; 80307; 81003; 82550; 84443; 84484; 85025; 93005; 96365; J2550; U0002

== ENCOUNTER 2021-11-05 08:27 | Emergency (ER) | payer OTHER ==
[2021-11-05 09:11] LABS: Hemoglobin 14.9 g/dL (12.0-16.0); Mean Corpuscular HGB CONC 32.6 g/dL (32.0-36.0); Mean Corpuscular Hemoglobin 31.4 pg (27.0-31.0); Mean Corpuscular Volume 96.5 fL (78.0-98.0); Mean Platelet Volume 10.5 fL (7.4-10.4); Platelet Count 133 thou/uL (130-400); RBC Distribution Width 13.4 % (11.5-14.5); Red Blood Cell (RBC) Count 4.74 mill/uL (4.20-5.40); White Blood Cell (WBC) Count 5.7 thou/uL (4.8-10.8)
[2021-11-05] MEDS ORDERED: Ondansetron ODT 4 MG TAB ONE (09:13)
[2021-11-05] MEDS ORDERED: Amlodipine 5 MG TAB ONE (09:13)
[2021-11-05 09:14] LABS: Eosinophils 2 % (0-10); Large Platelets SLIGHT; Lymphocytes 56 % (21-51); MDiff Complete? YES; Monocytes 3 % (0-10); Neutrophil 28 % (42-75); Platelet Morphology Comment Appears Adequate; RBC Morphology Normal; Reactive Lymphocytes 11 % (0-10)
[2021-11-05] MEDS ORDERED: Lisinopril 10 MG TAB ONE (09:14)
[2021-11-05] MEDS ORDERED: Acetaminophen 500 MG TAB ONE (09:17)
[2021-11-05 09:18] LABS: ALT (SGPT) 40 U/L (8-55); AST (SGOT) 46 U/L (5-34); Alkaline Phosphatase 93 U/L (40-110); Anion Gap 14 mmol/L (10-20); BUN (Urea Nitrogen) 21 mg/dL (9.8-20.1); Bilirubin, Total 0.5 mg/dL (0.2-1.2); Calc. Creatinine Clearance 0 mL/min (70-130); Carbon Dioxide 25 mmol/L (22-29); Chloride 107 mmol/L (98-107); Globulin 3.4 g/dL (2.4-3.5); Glucose 79 mg/dL (70-105); Potassium 3.9 mmol/L (3.5-5.1); Protein, Total 7.4 g/dL (6.0-8.3); Sodium 142 mmol/L (136-145)
[2021-11-05 09:18] LABS: Acetaminophen Less than 10.0 mcg/mL (10.0-30.0); Alcohol Less than 10 mg/dL (Less than 10); Salicylate Less than 8.0 mg/dL (15.0-30.0)
[2021-11-05 11:37] LABS: Troponin I Less than 0.010 ng/mL (< 0.028)
[2021-11-05 11:49] LABS: Amphetamine Not Detected (NotDetected); Barbiturates Screen Not Detected (NotDetected); Benzodiazepine Screen Not Detected (NotDetected); Cocaine Metabolite Screen Detected (NotDetected); Methadone Not Detected (NotDetected); Methamphetamine Not Detected (NotDetected); Opiate Screen Not Detected (NotDetected); Oxycodone Screen Not Detected (NotDetected); Phencyclidine (PCP) Not Detected (NotDetected); THC/Cannabinoid Screen Detected (NotDetected); Tricyclic Screen Not Detected (NotDetected)
[2021-11-05 12:19] LABS: SARS-CoV-2 NAA Rapid Test Not Detected (NotDetected)
[2021-11-05] MEDS ORDERED: levETIRAcetam 500 MG TAB PO SCH ×2 (14:45→21:00)
== END 2021-11-05 16:02 ==
LOC: ERS 08:27
DX: R45.851 Suicidal ideations (principal); R07.9 Chest pain, unspecified; I10 Essential (primary) hypertension; F29 Unspecified psychosis not due to a substance or known physiological condition; R00.1 Bradycardia, unspecified; F17.210 Nicotine dependence, cigarettes, uncomplicated; G40.909 Epilepsy, unspecified, not intractable, without status epilepticus; B20 Human immunodeficiency virus [HIV] disease; Z20.822 Contact with and (suspected) exposure to COVID-19; Z87.19 Personal history of other diseases of the digestive system; Z79.899 Other long term (current) drug therapy
CPT/HCPCS: 36415; 70450; 71045; 80053; 80306; 80307; 84484; 85025; 93005; Q0162; U0002

== ENCOUNTER 2021-12-05 08:40 | Emergency (ER) | payer OTHER ==
[2021-12-05 09:05] LABS: #Basophils 0.1 thou/uL (0.0-0.2); #Eosinphils 0.1 thou/uL (0.0-0.7); #Lymphocytes 3.6 thou/uL (1.20-3.40); #Monocytes 0.6 thou/uL (0.11-0.59); #Neutrophils 3.3 thou/uL (1.40-6.50); %Basophils 0.9 % (0.0-1.0); %Eosinophils 0.8 % (0.0-10.0); %Lymphocytes 47.2 % (21.0-51.0); %Monocytes 7.3 % (0.0-10.0); %Neutrophils 43.8 % (42.0-75.0); Hemoglobin 12.9 g/dL (12.0-16.0); Mean Corpuscular HGB CONC 32.3 g/dL (32.0-36.0); Mean Corpuscular Hemoglobin 31.2 pg (27.0-31.0); Mean Corpuscular Volume 96.7 fL (78.0-98.0); Mean Platelet Volume 9.1 fL (7.4-10.4); Platelet Count 207 thou/uL (130-400); Red Blood Cell (RBC) Count 4.13 mill/uL (4.20-5.40); White Blood Cell (WBC) Count 7.6 thou/uL (4.8-10.8)
[2021-12-05 09:25] LABS: ALT (SGPT) 75 U/L (8-55); AST (SGOT) 85 U/L (5-34); Acetaminophen Less than 10.0 mcg/mL (10.0-30.0); Albumin 3.7 g/dL (3.5-5.0); Alcohol Less than 10 mg/dL (Less than 10); Alkaline Phosphatase 87 U/L (40-110); Anion Gap 14 mmol/L (10-20); BUN (Urea Nitrogen) 16 mg/dL (9.8-20.1); Bilirubin, Total 0.2 mg/dL (0.2-1.2); CK (CPK) 247 U/L (29-168); Calc. Creatinine Clearance 0 mL/min (70-130); Calcium 8.8 mg/dL (7.8-10.44); Carbon Dioxide 22 mmol/L (22-29); Chloride 108 mmol/L (98-107); Estimated GFR 85; Globulin 3.2 g/dL (2.4-3.5); Glucose 96 mg/dL (70-105); Lipase 32 U/L (8-78); Potassium 3.8 mmol/L (3.5-5.1); Protein, Total 6.9 g/dL (6.0-8.3); Salicylate Less than 8.0 mg/dL (15.0-30.0); Sodium 140 mmol/L (136-145)
[2021-12-05] MEDS ORDERED: hydrALAZINE 20 MG/ML VIAL ONE (09:44)
[2021-12-05 09:58] LABS: Bilirubin Negative (Negative); Blood, Urine Negative (Negative); Glucose, Urine (Dipstick) Negative (Negative); Ketone, Urine Negative (Negative); Leukocyte Negative (Negative); Nitrite Negative (Negative); Protein, Urine (Dipstick) Negative (Neg-Trace); Urobilinogen 0.2 mg/dL (Less than 2)
[2021-12-05 10:01] LABS: Clarity Hazy (Clear)
[2021-12-05 10:05] LABS: Amphetamine Not Detected (NotDetected); Barbiturates Screen Detected (NotDetected); Benzodiazepine Screen Not Detected (NotDetected); Cocaine Metabolite Screen Not Detected (NotDetected); Methadone Not Detected (NotDetected); Methamphetamine Not Detected (NotDetected); Opiate Screen Not Detected (NotDetected); Oxycodone Screen Not Detected (NotDetected); Phencyclidine (PCP) Not Detected (NotDetected); THC/Cannabinoid Screen Not Detected (NotDetected); Tricyclic Screen Detected (NotDetected)
[2021-12-05] MEDS ORDERED: cefTRIAXone\\ROCEPHIN 2 GM VIAL ONE (10:14)
[2021-12-05] MEDS ORDERED: Ondansetron PF 4 MG/2 ML Vial ONE (10:14)
[2021-12-05 13:37] LABS: SARS-CoV-2 NAA Rapid Test Not Detected (NotDetected)
[2021-12-06] MEDS ORDERED: Acetaminophen 500 MG TAB ONE (01:40)
== END 2021-12-06 09:40 | disposition home or self-care (01) ==
LOC: ERS 08:40
DX: F43.20 Adjustment disorder, unspecified (principal); F31.9 Bipolar disorder, unspecified; R51.9 Headache, unspecified; I10 Essential (primary) hypertension; F17.210 Nicotine dependence, cigarettes, uncomplicated; G40.909 Epilepsy, unspecified, not intractable, without status epilepticus; F20.9 Schizophrenia, unspecified; F41.9 Anxiety disorder, unspecified; Z79.899 Other long term (current) drug therapy; Z20.822 Contact with and (suspected) exposure to COVID-19
CPT/HCPCS: 36415; 70450; 71045; 80053; 80306; 80307; 81003; 82550; 83690; 84443; 84484; 85025; 93005; J0360; J0696; J2405; U0002

== ENCOUNTER 2021-12-17 17:23 | Emergency (ER) | payer OTHER ==
[2021-12-17 18:05] LABS: Hemoglobin 13.5 g/dL (12.0-16.0); Mean Corpuscular HGB CONC 31.8 g/dL (32.0-36.0); Mean Corpuscular Volume 97.4 fL (78.0-98.0); Mean Platelet Volume 9.9 fL (7.4-10.4); Platelet Count 142 thou/uL (130-400); RBC Distribution Width 13.7 % (11.5-14.5); Red Blood Cell (RBC) Count 4.34 mill/uL (4.20-5.40); White Blood Cell (WBC) Count 4.8 thou/uL (4.8-10.8)
[2021-12-17 18:17] LABS: Bacteria/HPF None Seen HPF (None Seen); Bilirubin Negative (Negative); Blood, Urine Trace (Negative); Clarity Clear (Clear); Glucose, Urine (Dipstick) Normal (Negative); Ketone, Urine Trace mg/dL (Negative); Leukocyte 75 Leu/uL (Negative); Nitrite Negative (Negative); Protein, Urine (Dipstick) 10 mg/dL (Neg-Trace); RBC/HPF 0-3 HPF (0-3); Urobilinogen Normal mg/dL (Less than 2); WBC/HPF 0-3 HPF (0-3)
[2021-12-17 18:18] LABS: Amphetamine Not Detected (NotDetected); Barbiturates Screen Detected (NotDetected); Benzodiazepine Screen Not Detected (NotDetected); Cocaine Metabolite Screen Detected (NotDetected); Methadone Not Detected (NotDetected); Methamphetamine Not Detected (NotDetected); Opiate Screen Not Detected (NotDetected); Oxycodone Screen Not Detected (NotDetected); Phencyclidine (PCP) Not Detected (NotDetected); THC/Cannabinoid Screen Detected (NotDetected); Tricyclic Screen Detected (NotDetected)
[2021-12-17 18:18] LABS: Acetaminophen Less than 10.0 mcg/mL (10.0-30.0); Alcohol 28 mg/dL (Less than 10); Salicylate Less than 8.0 mg/dL (15.0-30.0)
[2021-12-17 18:19] LABS: ALT (SGPT) 45 U/L (8-55); AST (SGOT) 27 U/L (5-34); Alkaline Phosphatase 98 U/L (40-110); Anion Gap 16 mmol/L (10-20); BUN (Urea Nitrogen) 14 mg/dL (9.8-20.1); Bilirubin, Total 0.4 mg/dL (0.2-1.2); CK (CPK) 249 U/L (29-168); Calc. Creatinine Clearance 0 mL/min (70-130); Calcium 9.9 mg/dL (7.8-10.44); Carbon Dioxide 24 mmol/L (22-29); Chloride 107 mmol/L (98-107); Estimated GFR 66; Globulin 3.5 g/dL (2.4-3.5); Glucose 127 mg/dL (70-105); Magnesium 2.1 mg/dL (1.6-2.6); Potassium 4.2 mmol/L (3.5-5.1); Protein, Total 7.5 g/dL (6.0-8.3); Sodium 143 mmol/L (136-145)
[2021-12-17 18:30] LABS: Lymphocytes 64 % (21-51); MDiff Complete? YES; Monocytes 7 % (0-10); Neutrophil 23 % (42-75); Platelet Morphology Comment Appears Adequate; RBC Morphology Normal; Reactive Lymphocytes 6 % (0-10)
[2021-12-17] MEDS ORDERED: Lorazepam 1 MG TAB ONE (18:36)
[2021-12-17] MEDS ORDERED: levETIRAcetam 500 MG TAB PO SCH (18:45)
[2021-12-17 19:52] LABS: SARS-CoV-2 NAA Rapid Test Not Detected (NotDetected)
[2021-12-18] MEDS ORDERED: Acetaminophen 500 MG TAB ONE (08:56)
== END 2021-12-18 10:51 ==
LOC: ERS 17:23
DX: R45.851 Suicidal ideations (principal); Z20.822 Contact with and (suspected) exposure to COVID-19; G40.909 Epilepsy, unspecified, not intractable, without status epilepticus; Z21 Asymptomatic human immunodeficiency virus [HIV] infection status; F17.210 Nicotine dependence, cigarettes, uncomplicated; I10 Essential (primary) hypertension; Z86.73 Personal history of transient ischemic attack (TIA), and cerebral infarction without residual deficits; Z79.899 Other long term (current) drug therapy
CPT/HCPCS: 36415; 80053; 80306; 80307; 81003; 81015; 82550; 83735; 84484; 85025; 93005

== ENCOUNTER 2022-01-09 09:27 | Emergency (ER) | payer OTHER ==
[2022-01-09] MEDS ORDERED: Amlodipine 5 MG TAB ONE (10:21)
[2022-01-09] MEDS ORDERED: Lisinopril 10 MG TAB ONE (10:21)
[2022-01-09 10:52] LABS: #Lymphocytes 1.7 thou/uL (1.20-3.40); #Monocytes 0.5 thou/uL (0.11-0.59); #Neutrophils 1.6 thou/uL (1.40-6.50); %Basophils 0.8 % (0.0-1.0); %Eosinophils 1.1 % (0.0-10.0); %Lymphocytes 43.4 % (21.0-51.0); %Monocytes 12.4 % (0.0-10.0); %Neutrophils 42.4 % (42.0-75.0); Hemoglobin 14.6 g/dL (12.0-16.0); Mean Corpuscular HGB CONC 32.2 g/dL (32.0-36.0); Mean Corpuscular Hemoglobin 31.3 pg (27.0-31.0); Mean Corpuscular Volume 97.4 fL (78.0-98.0); Mean Platelet Volume 10.3 fL (7.4-10.4); Platelet Count 148 thou/uL (130-400); RBC Distribution Width 12.9 % (11.5-14.5); Red Blood Cell (RBC) Count 4.67 mill/uL (4.20-5.40); White Blood Cell (WBC) Count 3.8 thou/uL (4.8-10.8)
[2022-01-09] MEDS ORDERED: levETIRAcetam 500 MG/5 ML VIAL ONE (11:06)
[2022-01-09 11:15] LABS: Anion Gap 12 mmol/L (10-20); BUN (Urea Nitrogen) 14 mg/dL (9.8-20.1); Calc. Creatinine Clearance 0 mL/min (70-130); Carbon Dioxide 25 mmol/L (22-29); Chloride 108 mmol/L (98-107); Sodium 141 mmol/L (136-145)
[2022-01-09 11:16] LABS: ALT (SGPT) 51 U/L (8-55); AST (SGOT) 31 U/L (5-34); Acetaminophen Less than 10.0 mcg/mL (10.0-30.0); Albumin 4.2 g/dL (3.5-5.0); Alcohol Less than 10 mg/dL (Less than 10); Alkaline Phosphatase 112 U/L (40-110); Bilirubin, Total 0.3 mg/dL (0.2-1.2); Calcium 9.6 mg/dL (7.8-10.44); Estimated GFR 80; Globulin 3.5 g/dL (2.4-3.5); Glucose 105 mg/dL (70-105); Protein, Total 7.7 g/dL (6.0-8.3); Salicylate Less than 8.0 mg/dL (15.0-30.0)
[2022-01-09 11:33] LABS: Bacteria/HPF None Seen HPF (None Seen); Bilirubin Negative (Negative); Blood, Urine 1+ (Negative); Clarity Clear (Clear); Glucose, Urine (Dipstick) 30 mg/dL (Negative); Ketone, Urine Negative (Negative); Leukocyte 75 Leu/uL (Negative); Nitrite Negative (Negative); Protein, Urine (Dipstick) 30 mg/dL (Neg-Trace); Specific Gravity, Urine 1.034 (1.002-1.036); Squamous Epithelial 0-3 HPF (0-3); Urobilinogen Normal mg/dL (Less than 2); WBC/HPF 0-3 HPF (0-3); pH, Urine 5.5 (5.0-9.0)
[2022-01-09 11:40] LABS: Amphetamine Not Detected (NotDetected); Barbiturates Screen Detected (NotDetected); Benzodiazepine Screen Not Detected (NotDetected); Cocaine Metabolite Screen Detected (NotDetected); Methadone Not Detected (NotDetected); Methamphetamine Not Detected (NotDetected); Opiate Screen Not Detected (NotDetected); Oxycodone Screen Not Detected (NotDetected); Phencyclidine (PCP) Not Detected (NotDetected); THC/Cannabinoid Screen Detected (NotDetected); Tricyclic Screen Not Detected (NotDetected)
[2022-01-09] MEDS ORDERED: cloNIDine 0.1 MG TAB ONE (15:06)
[2022-01-09 16:18] LABS: SARS-CoV-2 NAA Rapid Test DETECTED (NotDetected)
[2022-01-10] MEDS ORDERED: ALPRAZolam 0.5 MG TAB PO SCH (04:00)
[2022-01-10] MEDS ORDERED: Amlodipine 5 MG TAB ONE (08:13)
[2022-01-10] MEDS ORDERED: Lisinopril 10 MG TAB ONE (08:13)
[2022-01-10] MEDS ORDERED: ALPRAZolam 0.5 MG TAB ONE (12:16)
== END 2022-01-10 12:40 ==
LOC: ERS 09:27
DX: U07.1 COVID-19 (principal); R55 Syncope and collapse; R45.851 Suicidal ideations; I10 Essential (primary) hypertension; G40.909 Epilepsy, unspecified, not intractable, without status epilepticus; B20 Human immunodeficiency virus [HIV] disease; F17.210 Nicotine dependence, cigarettes, uncomplicated; Z86.73 Personal history of transient ischemic attack (TIA), and cerebral infarction without residual deficits; Z79.899 Other long term (current) drug therapy
CPT/HCPCS: 36415; 80053; 80306; 80307; 81003; 81015; 84443; 85025; 93005; 94760; 96374; 96375; J1790; J1953; U0002

== ENCOUNTER 2022-02-09 21:27 | Emergency (ER) | payer OTHER ==
[2022-02-09] MEDS ORDERED: Midazolam HCl 2 mg/2 ml Vial ONE (21:52)
[2022-02-09] MEDS ORDERED: Labetalol HCl 100 MG/20 ML VIAL ONE (21:55)
[2022-02-09 23:03] LABS: #Basophils 0.1 thou/uL (0.0-0.2); #Lymphocytes 2.4 thou/uL (1.20-3.40); #Monocytes 0.5 thou/uL (0.11-0.59); %Basophils 0.9 % (0.0-1.0); %Eosinophils 0.5 % (0.0-10.0); %Lymphocytes 40.5 % (21.0-51.0); %Monocytes 8.7 % (0.0-10.0); %Neutrophils 49.4 % (42.0-75.0); Hemoglobin 14.5 g/dL (12.0-16.0); Mean Corpuscular HGB CONC 34.3 g/dL (32.0-36.0); Mean Corpuscular Hemoglobin 32.3 pg (27.0-31.0); Mean Platelet Volume 10.4 fL (7.4-10.4); Platelet Count 175 thou/uL (130-400); RBC Distribution Width 12.2 % (11.5-14.5); Red Blood Cell (RBC) Count 4.49 mill/uL (4.20-5.40)
[2022-02-09 23:13] LABS: CK (CPK) 1938 U/L (29-168); CRP (Inflammatory) 0.88 mg/dL (= or < 0.5); Magnesium 1.8 mg/dL (1.6-2.6)
[2022-02-09 23:15] LABS: INR-International Normal Ratio 1.1; PTT 26.1 sec (22.9-36.1); Prothrombin Time 13.8 sec (12.0-14.7)
[2022-02-09 23:23] LABS: ALT (SGPT) 117 U/L (8-55); AST (SGOT) 165 U/L (5-34); Acetaminophen Less than 10.0 mcg/mL (10.0-30.0); Albumin 4.6 g/dL (3.5-5.0); Alcohol Less than 10 mg/dL (Less than 10); Alkaline Phosphatase 111 U/L (40-110); Anion Gap 21 mmol/L (10-20); BUN (Urea Nitrogen) 11 mg/dL (9.8-20.1); Calc. Creatinine Clearance 0 mL/min (70-130); Calcium 10.1 mg/dL (7.8-10.44); Carbon Dioxide 20 mmol/L (22-29); Chloride 103 mmol/L (98-107); Estimated GFR 81; Globulin 3.5 g/dL (2.4-3.5); Glucose 129 mg/dL (70-105); Potassium 3.6 mmol/L (3.5-5.1); Protein, Total 8.1 g/dL (6.0-8.3); Salicylate Less than 8.0 mg/dL (15.0-30.0); Sodium 140 mmol/L (136-145)
[2022-02-09] MEDS ORDERED: Ziprasidone 20 MG VIAL ONE (23:23)
[2022-02-09] MEDS ORDERED: Sterile Water 10 ML ONE (23:24)
[2022-02-10 00:01] LABS: Bacteria/HPF None Seen HPF (None Seen); Bilirubin 1+ (Negative); Blood, Urine 2+ (Negative); Clarity Turbid (Clear); Glucose, Urine (Dipstick) 50 mg/dL (Negative); Ketone, Urine 40 mg/dL (Negative); Leukocyte Negative Leu/uL (Negative); Mucous/LPF 2+ LPF (<2+); Nitrite Negative (Negative); Protein, Urine (Dipstick) 200 mg/dL (Neg-Trace); Specific Gravity, Urine 1.035 (1.002-1.036); pH, Urine 5.5 (5.0-9.0)
[2022-02-10 00:07] LABS: Amphetamine Not Detected (NotDetected); Barbiturates Screen Detected (NotDetected); Benzodiazepine Screen Not Detected (NotDetected); Cocaine Metabolite Screen Detected (NotDetected); Methadone Not Detected (NotDetected); Methamphetamine Not Detected (NotDetected); Opiate Screen Not Detected (NotDetected); Oxycodone Screen Not Detected (NotDetected); Phencyclidine (PCP) Not Detected (NotDetected); THC/Cannabinoid Screen Detected (NotDetected); Tricyclic Screen Not Detected (NotDetected)
[2022-02-10 00:35] LABS: SARS-CoV-2 NAA Rapid Test Not Detected (NotDetected)
[2022-02-10] MEDS ORDERED: Amlodipine 5 MG TAB ONE (08:59)
[2022-02-10] MEDS ORDERED: Lisinopril 10 MG TAB ONE (08:59)
[2022-02-10] MEDS ORDERED: levETIRAcetam 500 MG TAB PO SCH (09:00)
[2022-02-10] MEDS ORDERED: Furosemide 40 MG/4 ML VIAL ONE (10:00)
[2022-02-10] MEDS ORDERED: levETIRAcetam 500 MG/5 ML VIAL ONE (10:01)
[2022-02-10] MEDS ORDERED: hydrOXYzine 25 MG TAB ONE ×2 (10:08→10:09)
[2022-02-10] MEDS ORDERED: hydrOXYzine Pamoate 25 mg Capsule ONE (10:11)
[2022-02-10] MEDS ORDERED: PARoxetine 20 MG TAB PO SCH (14:45)
[2022-02-10] MEDS ORDERED: Lorazepam (BATCHED) 2 MG/ML SYR ONE (15:36)
[2022-02-10] MEDS ORDERED: traZODone HCl 50 MG TAB ONE (20:37)
[2022-02-11] MEDS ORDERED: PARoxetine 20 MG TAB PO SCH (09:00)
[2022-02-12] MEDS ORDERED: Lisinopril 20 MG TAB PO SCH (07:45)
== END 2022-02-12 16:17 ==
LOC: ERS 21:27
DX: R45.851 Suicidal ideations (principal); F20.9 Schizophrenia, unspecified; F15.10 Other stimulant abuse, uncomplicated; F14.10 Cocaine abuse, uncomplicated; F13.10 Sedative, hypnotic or anxiolytic abuse, uncomplicated; I10 Essential (primary) hypertension; F17.210 Nicotine dependence, cigarettes, uncomplicated; Z20.822 Contact with and (suspected) exposure to COVID-19; Z21 Asymptomatic human immunodeficiency virus [HIV] infection status; Z86.73 Personal history of transient ischemic attack (TIA), and cerebral infarction without residual deficits; Z79.899 Other long term (current) drug therapy
CPT/HCPCS: 36415; 36416; 70450; 71045; 80053; 80306; 80307; 81003; 81015; 82550; 83605; 83690; 83735; 84443; 84484; 85025; 85610; 85730; 86140; 87040; 87077; 87086; 87149; 87186; 93005; 94760; 96361; 96372; 96374; 96375; 96376; J1940; J1953; J2060; J2250; J3486; Q0177; U0002

== ENCOUNTER 2022-05-01 14:58 | Inpatient (IN) | payer OTHER ==
[2022-05-01 16:15] LABS: Mean Corpuscular HGB CONC 32.4 g/dL (32.0-36.0); Mean Corpuscular Hemoglobin 31.2 pg (27.0-31.0); RBC Distribution Width 13.5 % (11.5-14.5); White Blood Cell (WBC) Count 7.1 10x3/uL (4.8-10.8)
[2022-05-01 16:24] LABS: Acetaminophen Less than 10.0 mcg/mL (10.0-30.0); Alcohol Less than 10 mg/dL (Less than 10); Salicylate Less than 8.0 mg/dL (15.0-30.0)
[2022-05-01 16:25] LABS: ALT (SGPT) 19 U/L (8-55); AST (SGOT) 25 U/L (5-34); Albumin 4.1 g/dL (3.5-5.0); Alkaline Phosphatase 109 U/L (40-110); Anion Gap 14 mmol/L (10-20); BUN (Urea Nitrogen) 17 mg/dL (9.8-20.1); Bilirubin, Total 0.4 mg/dL (0.2-1.2); Calc. Creatinine Clearance 0 mL/min (70-130); Calcium 9.8 mg/dL (7.8-10.44); Carbon Dioxide 28 mmol/L (22-29); Chloride 109 mmol/L (98-107); Estimated GFR 65; Globulin 3.4 g/dL (2.4-3.5); Glucose 105 mg/dL (70-105); Potassium 3.9 mmol/L (3.5-5.1); Protein, Total 7.5 g/dL (6.0-8.3); Sodium 147 mmol/L (136-145)
[2022-05-01 16:29] LABS: Eosinophils 1 % (0-10); Large Platelets SLIGHT; Lymphocytes 47 % (21-51); MDiff Complete? YES; Mean Platelet Volume 11.5 fL (7.4-10.4); Monocytes 5 % (0-10); Neutrophil 45 % (42-75); Platelet Count 138 10x3/uL (130-400); Platelet Morphology Comment Appears Adequate; RBC Morphology Normal; Reactive Lymphocytes 2 % (0-10)
[2022-05-01 16:45] LABS: CKMB 4.7 ng/mL (0-6.6)
[2022-05-01] MEDS ORDERED: Aspirin Chewable 81 MG TAB ONE (17:20)
[2022-05-01] MEDS ORDERED: Acetaminophen 325 MG TAB PO PRN (18:54)
[2022-05-01] MEDS ORDERED: Electrolyte Replacement Protocol 1 EACH FS SCH (19:15)
[2022-05-01] MEDS ORDERED: Folic Acid 1 MG TAB PO SCH (19:30)
[2022-05-01] MEDS ORDERED: Multivit, Therapeutic 1 TAB PO SCH (19:30)
[2022-05-01] MEDS ORDERED: Lorazepam 1 MG TAB PO PRN (20:33)
[2022-05-01] MEDS ORDERED: Lorazepam 2 MG/ML VIAL IM PRN (20:33)
[2022-05-01] MEDS ORDERED: Acetaminophen 500 MG TAB PO SCH (20:45)
[2022-05-01 20:53] LABS: Magnesium 1.8 mg/dL (1.6-2.6); Phosphorus 3.2 mg/dL (2.3-4.7)
[2022-05-01] MEDS: Thiamine HCl 200 MG/2 ML VIAL SLOW IVP SCH (21:15)
[2022-05-01] MEDS ORDERED: Magnesium 2 GM/50 ML(in water) 2 GM in Premix Bag 1 BAG IVPB SCH (21:30)
[2022-05-01] MEDS ORDERED: hydrALAZINE 20 MG/ML VIAL SLOW IVP PRN (22:20)
[2022-05-01 22:23] VITALS: BMI 28.0
[2022-05-01] MEDS ORDERED: Lisinopril 20 MG TAB PO SCH (22:30)
[2022-05-02 05:25] LABS: ALT (SGPT) 14 U/L (8-55); AST (SGOT) 20 U/L (5-34); Albumin 3.6 g/dL (3.5-5.0); Alkaline Phosphatase 93 U/L (40-110); Anion Gap 11 mmol/L (10-20); BUN (Urea Nitrogen) 21 mg/dL (9.8-20.1); Bilirubin, Total 0.5 mg/dL (0.2-1.2); Calc. Creatinine Clearance 91 mL/min (70-130); Calcium 9.1 mg/dL (7.8-10.44); Carbon Dioxide 22 mmol/L (22-29); Chloride 108 mmol/L (98-107); Estimated GFR 84; Glucose 96 mg/dL (70-105); Potassium 3.6 mmol/L (3.5-5.1); Protein, Total 6.6 g/dL (6.0-8.3); Sodium 137 mmol/L (136-145)
[2022-05-02 05:29] LABS: Troponin I 0.019 ng/mL (< 0.028)
[2022-05-02 06:37] LABS: Bacteria/HPF None Seen HPF (None Seen); Bilirubin Negative (Negative); Blood, Urine Negative (Negative); Clarity Clear (Clear); Glucose, Urine (Dipstick) 70 mg/dL (Negative); Ketone, Urine Trace mg/dL (Negative); Leukocyte Negative Leu/uL (Negative); Nitrite Negative (Negative); Protein, Urine (Dipstick) 10 mg/dL (Neg-Trace); RBC/HPF 0-3 HPF (0-3); Specific Gravity, Urine 1.036 (1.002-1.036); Squamous Epithelial 0-3 HPF (0-3); Urobilinogen 6 mg/dL (Less than 2); WBC/HPF 0-3 HPF (0-3)
[2022-05-02 06:44] LABS: Amphetamine Not Detected (NotDetected); Barbiturates Screen Not Detected (NotDetected); Benzodiazepine Screen Detected (NotDetected); Cocaine Metabolite Screen Detected (NotDetected); Methadone Not Detected (NotDetected); Methamphetamine Not Detected (NotDetected); Opiate Screen Not Detected (NotDetected); Oxycodone Screen Not Detected (NotDetected); Phencyclidine (PCP) Not Detected (NotDetected); THC/Cannabinoid Screen Detected (NotDetected); Tricyclic Screen Not Detected (NotDetected)
[2022-05-02 06:50] LABS: Hemoglobin 13.8 g/dL (12.0-16.0); Hypochromia SLIGHT = 6-15 cells (100X) (0-5/hpf); Large Platelets SLIGHT; Lymphocytes 74 % (21-51); MDiff Complete? YES; Mean Corpuscular Hemoglobin 30.3 pg (27.0-31.0); Mean Corpuscular Volume 97.7 fl (78.0-98.0); Mean Platelet Volume 11.6 fL (7.4-10.4); Monocytes 8 % (0-10); Neutrophil 16 % (42-75); Platelet Count 143 10x3/uL (130-400); Platelet Morphology Comment Appears Adequate; Polychromasia SLIGHT = 2-3 cells (100X) (0-2/hpf); RBC Distribution Width 13.6 % (11.5-14.5); Reactive Lymphocytes 2 % (0-10); Red Blood Cell (RBC) Count 4.55 mill/uL (4.20-5.40); White Blood Cell (WBC) Count 5.4 10x3/uL (4.8-10.8)
[2022-05-02] MEDS: Enoxaparin Sodium 40 MG/0.4 ML SYRINGE SC SCH (08:53)
[2022-05-02] MEDS: Folic Acid 1 MG TAB PO SCH (08:54)
[2022-05-02] MEDS: Multivit, Therapeutic 1 TAB PO SCH (08:54)
[2022-05-02] MEDS: metroNIDAZOLE 500 MG TAB PO SCH ×2 (08:54→20:44)
[2022-05-02] MEDS: Lisinopril 20 MG TAB PO SCH (08:54)
[2022-05-02] MEDS: Emtricitabine/Tenofovir 200-300 MG TAB PO SCH (08:55)
[2022-05-02] MEDS: Amlodipine 10 MG TAB PO SCH (08:55)
[2022-05-02] MEDS: Raltegravir Potassium 400 MG TAB PO SCH ×2 (10:28→20:44)
[2022-05-02] MEDS: Thiamine HCl 200 MG/2 ML VIAL SLOW IVP SCH (20:43)
[2022-05-02] MEDS: Lorazepam 1 MG TAB PO PRN (20:44)
[2022-05-02 21:53] LABS: Chlamydia by PCR *Indeterminate (NotDetected); GC by PCR *Indeterminate (NotDetected)
[2022-05-03] MEDS ORDERED: Lidocaine 1% PF 5 ML VIAL FS SCH (08:00)
[2022-05-03] MEDS ORDERED: cefTRIAXone\\ROCEPHIN 500 MG VIAL IM SCH (08:30)
[2022-05-03] MEDS ORDERED: Azithromycin 250 MG TAB PO SCH (09:00)
[2022-05-03] MEDS: Lisinopril 20 MG TAB PO SCH (09:02)
[2022-05-03] MEDS: Enoxaparin Sodium 40 MG/0.4 ML SYRINGE SC SCH (09:02)
[2022-05-03] MEDS: Emtricitabine/Tenofovir 200-300 MG TAB PO SCH (09:02)
[2022-05-03] MEDS: metroNIDAZOLE 500 MG TAB PO SCH ×2 (09:03→21:19)
[2022-05-03] MEDS: Folic Acid 1 MG TAB PO SCH (09:03)
[2022-05-03] MEDS: Multivit, Therapeutic 1 TAB PO SCH (09:03)
[2022-05-03] MEDS: Raltegravir Potassium 400 MG TAB PO SCH ×2 (09:17→21:18)
[2022-05-03] MEDS: Amlodipine 10 MG TAB PO SCH (09:57)
[2022-05-03] MEDS: Lorazepam 1 MG TAB PO PRN (14:40)
[2022-05-03] MEDS ORDERED: Lorazepam 1 MG TAB PO PRN (20:33)
[2022-05-03] MEDS: Thiamine HCl 200 MG/2 ML VIAL SLOW IVP SCH (21:18)
[2022-05-03] MEDS: Ibuprofen 600 MG TAB PO PRN (21:19)
[2022-05-04] MEDS: Enoxaparin Sodium 40 MG/0.4 ML SYRINGE SC SCH (08:15)
[2022-05-04] MEDS: Emtricitabine/Tenofovir 200-300 MG TAB PO SCH (08:15)
[2022-05-04] MEDS: Amlodipine 10 MG TAB PO SCH (08:15)
[2022-05-04] MEDS: Lisinopril 20 MG TAB PO SCH (08:16)
[2022-05-04] MEDS: Folic Acid 1 MG TAB PO SCH (08:16)
[2022-05-04] MEDS: Multivit, Therapeutic 1 TAB PO SCH (08:16)
[2022-05-04] MEDS: Raltegravir Potassium 400 MG TAB PO SCH (08:16)
[2022-05-04] MEDS: metroNIDAZOLE 500 MG TAB PO SCH (08:16)
[2022-05-04] MEDS: Ibuprofen 600 MG TAB PO PRN (13:55)
[2022-05-04 14:37] VITALS: BP 160/72; TEMP 98.2
[2022-05-04] MEDS ORDERED: Lorazepam 0.5 MG TAB PO PRN (20:33)
[2022-05-04] MEDS ORDERED: Thiamine 100 MG TAB PO SCH (21:00)
== END 2022-05-04 15:10 | disposition home or self-care (01) | DRG 918 ==
LOC: ERS 14:58 → OBSVTOIN 17:20 → 2NO 17:20
PROVIDERS: ADMIT Student in an Organized Health Care Education/Training Program; ATTEND Family Medicine
DX: T40.5X2A Poisoning by cocaine, intentional self-harm, initial encounter (principal); R45.851 Suicidal ideations; M94.0 Chondrocostal junction syndrome [Tietze]; K21.9 Gastro-esophageal reflux disease without esophagitis; Z20.822 Contact with and (suspected) exposure to COVID-19; F20.9 Schizophrenia, unspecified; Z21 Asymptomatic human immunodeficiency virus [HIV] infection status; I25.10 Atherosclerotic heart disease of native coronary artery without angina pectoris; F17.210 Nicotine dependence, cigarettes, uncomplicated; F12.10 Cannabis abuse, uncomplicated; F14.10 Cocaine abuse, uncomplicated; F10.10 Alcohol abuse, uncomplicated; R94.31 Abnormal electrocardiogram [ECG] [EKG]; G40.909 Epilepsy, unspecified, not intractable, without status epilepticus; N76.0 Acute vaginitis; T40.712A Poisoning by cannabis, intentional self-harm, initial encounter; R77.8 Other specified abnormalities of plasma proteins; N93.9 Abnormal uterine and vaginal bleeding, unspecified; R31.9 Hematuria, unspecified; Z91.14 Patient's other noncompliance with medication regimen; Z86.73 Personal history of transient ischemic attack (TIA), and cerebral infarction without residual deficits; Z88.0 Allergy status to penicillin; Z79.899 Other long term (current) drug therapy; Z98.890 Other specified postprocedural states; Z83.3 Family history of diabetes mellitus; Z59.00 Homelessness unspecified; Z86.19 Personal history of other infectious and parasitic diseases
CPT/HCPCS: 36415; 71045; 80053; 80306; 80307; 81001; 82553; 83735; 84100; 84443; 84484; 85025; 87480; 87491; 87510; 87591; 87660; 93005; J0696; J1650; J3411; J3475; U0003; U0005

== ENCOUNTER 2022-05-11 14:37 | Emergency (ER) | payer OTHER ==
[2022-05-11] MEDS ORDERED: Aspirin Chewable 81 MG TAB ONE (15:14)
[2022-05-11] MEDS ORDERED: Boostrix 0.5 ML (Tdap) VIAL (>/=7 yrs of age) ONE (15:14)
[2022-05-11 16:11] LABS: ALT (SGPT) 20 U/L (8-55); AST (SGOT) 29 U/L (5-34); Albumin 4.2 g/dL (3.5-5.0); Alkaline Phosphatase 116 U/L (40-110); Anion Gap 18 mmol/L (10-20); BUN (Urea Nitrogen) 22 mg/dL (9.8-20.1); Bilirubin, Total 0.3 mg/dL (0.2-1.2); Calc. Creatinine Clearance 0 mL/min (70-130); Carbon Dioxide 19 mmol/L (22-29); Chloride 104 mmol/L (98-107); Estimated GFR 48; Globulin 3.7 g/dL (2.4-3.5); Glucose 132 mg/dL (70-105); Potassium 3.8 mmol/L (3.5-5.1); Protein, Total 7.9 g/dL (6.0-8.3); Sodium 137 mmol/L (136-145)
[2022-05-11] MEDS ORDERED: Rabies Vaccine Human 2.5 UNITS VIAL ONE (17:09)
[2022-05-11 17:36] LABS: #Basophils 0.1 thou/uL (0.0-0.2); #Eosinphils 0.1 thou/uL (0.0-0.7); #Lymphocytes 3.9 thou/uL (1.20-3.40); #Monocytes 0.9 thou/uL (0.11-0.59); #Neutrophils 4.8 thou/uL (1.40-6.50); %Basophils 0.5 % (0.0-1.0); %Eosinophils 0.9 % (0.0-10.0); %Lymphocytes 40.4 % (21.0-51.0); %Monocytes 8.8 % (0.0-10.0); %Neutrophils 49.3 % (42.0-75.0); Hemoglobin 14.3 g/dL (12.0-16.0); Mean Corpuscular HGB CONC 33.4 g/dL (32.0-36.0); Mean Corpuscular Hemoglobin 31.6 pg (27.0-31.0); Mean Corpuscular Volume 94.6 fl (78.0-98.0); Mean Platelet Volume 10.6 fL (7.4-10.4); Platelet Count 155 10x3/uL (130-400); RBC Distribution Width 13.6 % (11.5-14.5); Red Blood Cell (RBC) Count 4.53 mill/uL (4.20-5.40); White Blood Cell (WBC) Count 9.7 10x3/uL (4.8-10.8)
[2022-05-11 18:36] LABS: Acetaminophen Less than 10.0 mcg/mL (10.0-30.0); Alcohol Less than 10 mg/dL (Less than 10); Salicylate Less than 8.0 mg/dL (15.0-30.0)
[2022-05-11 19:10] LABS: Pregnancy Test - Urine (BHCG) Negative (Negative); Pregu Control Background? CLEAR/WHITE (CLR/WHITE); Pregu Control Bar Appear? YES (CONTROL BAR); Specific Gravity 1.025 (1.002-1.036)
[2022-05-11 19:14] LABS: Amphetamine Detected (NotDetected); Barbiturates Screen Not Detected (NotDetected); Benzodiazepine Screen Detected (NotDetected); Cocaine Metabolite Screen Detected (NotDetected); Methadone Not Detected (NotDetected); Methamphetamine Detected (NotDetected); Opiate Screen Not Detected (NotDetected); Oxycodone Screen Not Detected (NotDetected); Phencyclidine (PCP) Not Detected (NotDetected); THC/Cannabinoid Screen Detected (NotDetected); Tricyclic Screen Not Detected (NotDetected)
[2022-05-12] MEDS ORDERED: Acetaminophen 500 MG TAB ONE ×2 (00:17→16:27)
== END 2022-05-12 17:30 ==
LOC: ERS 14:37
DX: S81.851A Open bite, right lower leg, initial encounter (principal); R06.02 Shortness of breath; Z23 Encounter for immunization; B20 Human immunodeficiency virus [HIV] disease; I10 Essential (primary) hypertension; F17.210 Nicotine dependence, cigarettes, uncomplicated; Z79.899 Other long term (current) drug therapy; W54.0XXA Bitten by dog, initial encounter
CPT/HCPCS: 36415; 71045; 80053; 80306; 80307; 81025; 83880; 84484; 85025; 85379; 90375; 90376; 90471; 90675; 90715; 93005; 96372

== ENCOUNTER 2022-07-12 17:47 | Emergency (ER) | payer OTHER ==
[2022-07-12 18:49] LABS: Mean Corpuscular HGB CONC 33.5 g/dL (32.0-36.0); Mean Corpuscular Hemoglobin 30.9 pg (27.0-31.0); Mean Corpuscular Volume 92.2 fl (78.0-98.0); Mean Platelet Volume 11.9 fL (7.4-10.4); Platelet Count 143 10x3/uL (130-400); RBC Distribution Width 13.6 % (11.5-14.5); Red Blood Cell (RBC) Count 4.84 mill/uL (4.20-5.40); White Blood Cell (WBC) Count 9.3 10x3/uL (4.8-10.8)
[2022-07-12 19:02] LABS: ALT (SGPT) 23 U/L (8-55); AST (SGOT) 27 U/L (5-34); Albumin 4.3 g/dL (3.5-5.0); Alkaline Phosphatase 106 U/L (40-110); Anion Gap 14 mmol/L (10-20); BUN (Urea Nitrogen) 22 mg/dL (9.8-20.1); Bilirubin, Total 0.5 mg/dL (0.2-1.2); CK (CPK) 277 U/L (29-168); Calc. Creatinine Clearance 0 mL/min (70-130); Carbon Dioxide 22 mmol/L (22-29); Chloride 105 mmol/L (98-107); Estimated GFR 56; Globulin 3.6 g/dL (2.4-3.5); Glucose 92 mg/dL (70-105); Lipase 42 U/L (8-78); Potassium 4.2 mmol/L (3.5-5.1); Protein, Total 7.9 g/dL (6.0-8.3); Sodium 137 mmol/L (136-145)
[2022-07-12 19:06] LABS: Acetaminophen Less than 10.0 mcg/mL (10.0-30.0); Alcohol Less than 10 mg/dL (Less than 10); Salicylate Less than 8.0 mg/dL (15.0-30.0)
[2022-07-12 19:09] LABS: Eosinophils 1 % (0-10); Lymphocytes 42 % (21-51); MDiff Complete? YES; Monocytes 4 % (0-10); Neutrophil 40 % (42-75); Platelet Morphology Comment Appears Adequate; RBC Morphology Normal; Reactive Lymphocytes 12 % (0-10)
[2022-07-12] MEDS ORDERED: traZODone HCl 150 MG TAB PO SCH (21:00)
[2022-07-12] MEDS ORDERED: QUEtiapine 200 MG TAB PO SCH (21:00)
[2022-07-12] MEDS ORDERED: PARoxetine 20 MG TAB PO SCH (22:45)
[2022-07-13] MEDS ORDERED: Aspirin Chewable 81 MG TAB ONE (08:52)
[2022-07-13] MEDS ORDERED: PARoxetine 20 MG TAB PO SCH ×2 (09:00→21:00)
== END 2022-07-13 23:32 ==
LOC: ERS 17:47
DX: R45.851 Suicidal ideations (principal); I10 Essential (primary) hypertension; F17.210 Nicotine dependence, cigarettes, uncomplicated
CPT/HCPCS: 36416; 70450; 71045; 80053; 80307; 82550; 83690; 84443; 84484; 85025; 93005

== ENCOUNTER 2022-09-09 19:27 | Inpatient (IN) | payer OTHER ==
[2022-09-09 20:40] LABS: BHCG - Serum Negative (NEGATIVE); Pregs Control Background? CLEAR/WHITE (CLR/WHITE); Pregs Control Bar Appear? YES (CONTROL BAR)
[2022-09-09 20:43] LABS: Bacteria/HPF None Seen HPF (None Seen); Bilirubin Negative (Negative); Blood, Urine 1+ (Negative); Clarity Clear (Clear); Glucose, Urine (Dipstick) Normal (Negative); Ketone, Urine Negative (Negative); Leukocyte Negative Leu/uL (Negative); Mucous/LPF Rare LPF (<2+); Nitrite Negative (Negative); Protein, Urine (Dipstick) 10 mg/dL (Neg-Trace); RBC/HPF 0-3 HPF (0-3); Specific Gravity, Urine 1.016 (1.002-1.036); Squamous Epithelial 0-3 HPF (0-3); Urobilinogen Normal mg/dL (Less than 2); WBC/HPF 0-3 HPF (0-3)
[2022-09-09] MEDS ORDERED: Aspirin Chewable 81 MG TAB ONE (20:49)
[2022-09-09] MEDS ORDERED: Nitroglycerin 2% Ointment 1 INCH/1 GM Packet ONE (20:49)
[2022-09-09 20:50] LABS: Amphetamine Not Detected (NotDetected); Barbiturates Screen Not Detected (NotDetected); Benzodiazepine Screen Not Detected (NotDetected); Cocaine Metabolite Screen Detected (NotDetected); Methadone Not Detected (NotDetected); Methamphetamine Not Detected (NotDetected); Opiate Screen Not Detected (NotDetected); Oxycodone Screen Not Detected (NotDetected); Phencyclidine (PCP) Not Detected (NotDetected); THC/Cannabinoid Screen Detected (NotDetected); Tricyclic Screen Not Detected (NotDetected)
[2022-09-09 20:54] LABS: Acetaminophen Less than 10.0 mcg/mL (10.0-30.0); Alcohol 31 mg/dL (Less than 10); Lipase 23 U/L (8-78); Salicylate Less than 8.0 mg/dL (15.0-30.0)
[2022-09-09 20:56] LABS: ALT (SGPT) 19 U/L (8-55); AST (SGOT) 33 U/L (5-34); Albumin 4.3 g/dL (3.5-5.0); Alkaline Phosphatase 116 U/L (40-110); Anion Gap 19 mmol/L (10-20); BUN (Urea Nitrogen) 8 mg/dL (9.8-20.1); Bilirubin, Total 0.3 mg/dL (0.2-1.2); CK (CPK) 318 U/L (29-168); Calc. Creatinine Clearance 0 mL/min (70-130); Calcium 9.9 mg/dL (7.8-10.44); Carbon Dioxide 16 mmol/L (22-29); Chloride 107 mmol/L (98-107); Estimated GFR 65; Globulin 3.6 g/dL (2.4-3.5); Glucose 85 mg/dL (70-105); Protein, Total 7.9 g/dL (6.0-8.3); Sodium 138 mmol/L (136-145)
[2022-09-09 21:19] LABS: Hemoglobin 14.3 g/dL (12.0-16.0); Mean Corpuscular HGB CONC 33.1 g/dL (32.0-36.0); Mean Corpuscular Hemoglobin 30.5 pg (27.0-31.0); Mean Corpuscular Volume 92.1 fl (78.0-98.0); Mean Platelet Volume 10.7 fL (7.4-10.4); Platelet Count 183 10x3/uL (130-400); RBC Distribution Width 13.3 % (11.5-14.5); Red Blood Cell (RBC) Count 4.69 mill/uL (4.20-5.40); White Blood Cell (WBC) Count 6.8 10x3/uL (4.8-10.8)
[2022-09-09 21:23] LABS: CKMB 9.8 ng/mL (0-6.6)
[2022-09-09 21:41] LABS: Eosinophils 1 % (0-10); Lymphocytes 61 % (21-51); MDiff Complete? YES; Monocytes 3 % (0-10); Neutrophil 35 % (42-75); Platelet Morphology Comment Appears Adequate; RBC Morphology Normal
[2022-09-09] MEDS ORDERED: Acetaminophen 650 MG Suppository PR PRN (22:17)
[2022-09-09] MEDS ORDERED: QUEtiapine 200 MG TAB PO SCH (23:59)
[2022-09-10 00:02] VITALS: BMI 28.0
[2022-09-10] MEDS: Nitroglycerin 0.4 MG TAB (25 Tab Bottle) SL PRN ×2 (00:17→20:30)
[2022-09-10 00:40] LABS: Critical Call Chem Troponin I RESULT DECREASING; Troponin I 0.241 ng/mL (< 0.028)
[2022-09-10 04:27] LABS: ALT (SGPT) 20 U/L (8-55); AST (SGOT) 37 U/L (5-34); Albumin 3.7 g/dL (3.5-5.0); Alkaline Phosphatase 105 U/L (40-110); Anion Gap 14 mmol/L (10-20); BUN (Urea Nitrogen) 10 mg/dL (9.8-20.1); Bilirubin, Total 0.8 mg/dL (0.2-1.2); Calc. Creatinine Clearance 86 mL/min (70-130); Calcium 9.2 mg/dL (7.8-10.44); Carbon Dioxide 18 mmol/L (22-29); Cardiac Risk 2.4 (Less than 4.5); Chloride 108 mmol/L (98-107); Cholesterol 146 mg/dl (< 200 Desired); Estimated GFR 78; Globulin 3.2 g/dL (2.4-3.5); Glucose 96 mg/dL (70-105); HDL Cholesterol 62 mg/dL (>60 Neg Risk); LDL Cholesterol, Calculated 73 mg/dL; Potassium 4.2 mmol/L (3.5-5.1); Protein, Total 6.9 g/dL (6.0-8.3); Sodium 136 mmol/L (136-145); Triglycerides 56 mg/dL (Less than 150)
[2022-09-10 04:35] LABS: Troponin I 0.269 ng/mL (< 0.028)
[2022-09-10] MEDS ORDERED: chlordiazePOXIDE HCl 25 MG CAP PO SCH (07:00)
[2022-09-10 07:03] LABS: Critical Call Chem Troponin I RESULT DECREASING; Troponin I 0.256 ng/mL (< 0.028)
[2022-09-10] MEDS: PARoxetine 20 MG TAB PO SCH (08:04)
[2022-09-10] MEDS: Aspirin 81 mg Enteric Coated Tablet PO SCH (08:04)
[2022-09-10] MEDS: Amlodipine 10 MG TAB PO SCH (08:04)
[2022-09-10] MEDS: Lisinopril 20 MG TAB PO SCH (08:06)
[2022-09-10] MEDS ORDERED: [UNRECOGNIZED DRUG - OTHER] PO SCH (09:00)
[2022-09-10] MEDS ORDERED: VALBENAZINE TOSYLATE 80 MG PO SCH (09:00)
[2022-09-10] MEDS ORDERED: Furosemide 20 MG/2 ML VIAL SLOW IVP SCH (12:15)
[2022-09-10] MEDS: chlordiazePOXIDE HCl 25 MG CAP PO SCH ×2 (13:00→18:02)
[2022-09-10] MEDS: Acetaminophen 325 MG TAB PO PRN (18:02)
[2022-09-10] MEDS: QUEtiapine 200 MG TAB PO SCH (20:29)
[2022-09-10] MEDS: traZODone HCl 150 MG TAB PO SCH (20:29)
[2022-09-10] MEDS: Rosuvastatin 20 MG TAB PO SCH (20:29)
[2022-09-11] MEDS: chlordiazePOXIDE HCl 25 MG CAP PO SCH ×5 (00:22→23:15)
[2022-09-11 07:43] LABS: Anion Gap 10 mmol/L (10-20); BUN (Urea Nitrogen) 13 mg/dL (9.8-20.1); Calc. Creatinine Clearance 80 mL/min (70-130); Calcium 8.9 mg/dL (7.8-10.44); Carbon Dioxide 23 mmol/L (22-29); Chloride 106 mmol/L (98-107); Estimated GFR 71; Glucose 92 mg/dL (70-105); Sodium 135 mmol/L (136-145)
[2022-09-11] MEDS: Amlodipine 10 MG TAB PO SCH (10:04)
[2022-09-11] MEDS: PARoxetine 20 MG TAB PO SCH (10:04)
[2022-09-11] MEDS: Aspirin 81 mg Enteric Coated Tablet PO SCH (10:04)
[2022-09-11] MEDS: Lisinopril 20 MG TAB PO SCH (10:04)
[2022-09-11] MEDS: Acetaminophen 325 MG TAB PO PRN ×2 (16:26→20:16)
[2022-09-11] MEDS: Nitroglycerin 0.4 MG TAB (25 Tab Bottle) SL PRN ×2 (20:00→20:05)
[2022-09-11] MEDS: QUEtiapine 200 MG TAB PO SCH (20:15)
[2022-09-11] MEDS: traZODone HCl 150 MG TAB PO SCH (20:15)
[2022-09-11] MEDS: Rosuvastatin 20 MG TAB PO SCH (20:16)
[2022-09-12 04:55] LABS: Anion Gap 10 mmol/L (10-20); BUN (Urea Nitrogen) 23 mg/dL (9.8-20.1); Calc. Creatinine Clearance 68 mL/min (70-130); Carbon Dioxide 24 mmol/L (22-29); Chloride 106 mmol/L (98-107); Estimated GFR 59; Glucose 107 mg/dL (70-105); Potassium 4.2 mmol/L (3.5-5.1); Sodium 136 mmol/L (136-145)
[2022-09-12] MEDS: Acetaminophen 325 MG TAB PO PRN (05:02)
[2022-09-12] MEDS: chlordiazePOXIDE HCl 25 MG CAP PO SCH ×3 (05:03→22:27)
[2022-09-12] MEDS: Amlodipine 10 MG TAB PO SCH (08:44)
[2022-09-12] MEDS: Aspirin 81 mg Enteric Coated Tablet PO SCH (08:45)
[2022-09-12] MEDS: PARoxetine 20 MG TAB PO SCH (08:45)
[2022-09-12] MEDS ORDERED: Lisinopril 10 MG TAB PO SCH (09:15)
[2022-09-12] MEDS: QUEtiapine 200 MG TAB PO SCH (22:27)
[2022-09-12] MEDS: traZODone HCl 150 MG TAB PO SCH (22:28)
[2022-09-12] MEDS: Rosuvastatin 20 MG TAB PO SCH (22:28)
[2022-09-13 05:29] LABS: Anion Gap 10 mmol/L (10-20); BUN (Urea Nitrogen) 20 mg/dL (9.8-20.1); Calc. Creatinine Clearance 83 mL/min (70-130); Calcium 9.1 mg/dL (7.8-10.44); Carbon Dioxide 24 mmol/L (22-29); Chloride 106 mmol/L (98-107); Estimated GFR 75; Glucose 106 mg/dL (70-105); Potassium 4.3 mmol/L (3.5-5.1); Sodium 136 mmol/L (136-145)
[2022-09-13] MEDS: Acetaminophen 325 MG TAB PO PRN (06:19)
[2022-09-13 08:36] VITALS: BP 120/75; TEMP 97.5
[2022-09-13] MEDS ORDERED: Lisinopril 10 MG TAB PO SCH (09:00)
[2022-09-13] MEDS ORDERED: Lisinopril 20 MG TAB PO SCH (09:00)
[2022-09-13] MEDS: PARoxetine 20 MG TAB PO SCH (09:51)
[2022-09-13] MEDS: chlordiazePOXIDE HCl 25 MG CAP PO SCH (09:52)
[2022-09-13] MEDS: Aspirin 81 mg Enteric Coated Tablet PO SCH (09:52)
[2022-09-13] MEDS: Amlodipine 10 MG TAB PO SCH (09:53)
== END 2022-09-13 11:08 | DRG 917 ==
LOC: ERS 19:27 → 2NO 22:17
PROVIDERS: ADMIT Family Medicine; ATTEND Family Medicine
PROC: HZ2ZZZZ Detoxification Services for Substance Abuse Treatment (ICD-10-PCS; principal; 2022-09-09)
DX: T40.5X2A Poisoning by cocaine, intentional self-harm, initial encounter (principal); I21.A1 Myocardial infarction type 2; R44.3 Hallucinations, unspecified; F10.139 Alcohol abuse with withdrawal, unspecified; R47.1 Dysarthria and anarthria; I10 Essential (primary) hypertension; R94.31 Abnormal electrocardiogram [ECG] [EKG]; G40.909 Epilepsy, unspecified, not intractable, without status epilepticus; I25.10 Atherosclerotic heart disease of native coronary artery without angina pectoris; Z21 Asymptomatic human immunodeficiency virus [HIV] infection status; F20.9 Schizophrenia, unspecified; F17.210 Nicotine dependence, cigarettes, uncomplicated; F12.10 Cannabis abuse, uncomplicated; F14.10 Cocaine abuse, uncomplicated; Y90.1 Blood alcohol level of 20-39 mg/100 ml; Z86.19 Personal history of other infectious and parasitic diseases; Z86.73 Personal history of transient ischemic attack (TIA), and cerebral infarction without residual deficits; Z91.199 Patient's noncompliance with other medical treatment and regimen due to unspecified reason; Z88.0 Allergy status to penicillin; Z79.899 Other long term (current) drug therapy; Z83.3 Family history of diabetes mellitus
CPT/HCPCS: 36415; 36416; 70450; 71045; 80048; 80053; 80061; 80306; 80307; 81003; 81015; 82550; 82553; 83690; 83880; 84443; 84484; 84703; 85025; 93005; 93306; 96372; J1650; J1940

== ENCOUNTER 2023-02-21 18:58 | Emergency (ER) | payer OTHER ==
[2023-02-21 19:53] LABS: Bacteria/HPF None Seen HPF (None Seen); Bilirubin Negative (Negative); Blood, Urine Negative (Negative); CAUTI Indications for Culture Immunosuppressed; Clarity Clear (Clear); Glucose, Urine (Dipstick) 30 mg/dL (Negative); Ketone, Urine Negative (Negative); Leukocyte Negative Leu/uL (Negative); Nitrite Negative (Negative); Protein, Urine (Dipstick) 20 mg/dL (Neg-Trace); Specific Gravity, Urine 1.023 (1.002-1.036); Squamous Epithelial 0-3 HPF (0-3); Urobilinogen 3 mg/dL (Less than 2); WBC/HPF 0-3 HPF (0-3); pH, Urine 7.5 (5.0-9.0)
[2023-02-21 19:57] LABS: Urine Culture Reflex Yes Yes
[2023-02-21] MEDS ORDERED: Ondansetron ODT 4 MG TAB ONE (19:59)
[2023-02-21 20:02] LABS: Amphetamine Not Detected (NotDetected); Barbiturates Screen Not Detected (NotDetected); Benzodiazepine Screen Not Detected (NotDetected); Cocaine Metabolite Screen Detected (NotDetected); Methadone Not Detected (NotDetected); Methamphetamine Not Detected (NotDetected); Opiate Screen Not Detected (NotDetected); Oxycodone Screen Not Detected (NotDetected); Phencyclidine (PCP) Not Detected (NotDetected); THC/Cannabinoid Screen Detected (NotDetected); Tricyclic Screen Not Detected (NotDetected)
[2023-02-21 20:32] LABS: Hematocrit 43.8 % (36.0-47.0); Hemoglobin 14.4 g/dL (12.0-16.0); Mean Corpuscular HGB CONC 32.9 g/dL (32.0-36.0); Mean Corpuscular Hemoglobin 29.5 pg (27.0-31.0); Mean Corpuscular Volume 89.8 fl (78.0-98.0); Mean Platelet Volume 12.5 fL (7.4-10.4); Platelet Count 166 10x3/uL (130-400); RBC Distribution Width 14.4 % (11.5-14.5); Red Blood Cell (RBC) Count 4.88 mill/uL (4.20-5.40); White Blood Cell (WBC) Count 6.1 10x3/uL (4.8-10.8)
[2023-02-21] MEDS ORDERED: Amlodipine 5 MG TAB ONE (20:32)
[2023-02-21 20:42] LABS: Delete Auto Diff?? YES; Manual Diff?? YES
[2023-02-21 20:42] LABS: SARS-CoV-2 NAA Rapid Test Not Detected (NotDetected)
[2023-02-21 20:54] LABS: Troponin I Less than 0.010 ng/mL (< 0.028)
[2023-02-21 21:01] LABS: ALT (SGPT) 20 U/L (8-55); AST (SGOT) 30 U/L (5-34); Acetaminophen Less than 10 mcg/mL (10.0-30.0); Alcohol Less than 10.0 mg/dL (Less than 10); Alkaline Phosphatase 102 U/L (40-110); Anion Gap 14 mmol/L (10-20); BUN (Urea Nitrogen) 9 mg/dL (9.8-20.1); Bilirubin, Total 0.4 mg/dL (0.2-1.2); Calc. Creatinine Clearance 0 mL/min (70-130); Calcium 9.6 mg/dL (7.8-10.44); Carbon Dioxide 23 mmol/L (22-29); Chloride 106 mmol/L (98-107); Estimated GFR 79; Globulin 3.9 g/dL (2.4-3.5); Glucose 79 mg/dL (70-105); Potassium 3.9 mmol/L (3.5-5.1); Protein, Total 7.9 g/dL (6.0-8.3); Salicylate Less than 8.0 mg/dL (15.0-30.0); Sodium 139 mmol/L (136-145)
[2023-02-21 21:11] LABS: Band 2 % (5-11); CellaVision Operator ID LAB.CLH1; Eosinophils 3 % (0-10); Large Platelets 6.9 % (0-5); Lymphocytes 38 % (21-51); Monocytes 9 % (0-10); Neutrophil 47 % (42-75); Platelet Adequacy Comment Platelets Normal; Polychromasia SLIGHT = 2-3 cells HPF (0-2); Reactive Lymphocytes 1 % (0-10); Total Cell Count 102
[2023-02-22] MEDS ORDERED: PARoxetine 20 MG TAB PO SCH (15:00)
== END 2023-02-23 16:19 ==
LOC: ERS 18:58
DX: F31.9 Bipolar disorder, unspecified (principal); F20.9 Schizophrenia, unspecified; B20 Human immunodeficiency virus [HIV] disease; I10 Essential (primary) hypertension; Z79.899 Other long term (current) drug therapy; F17.210 Nicotine dependence, cigarettes, uncomplicated
CPT/HCPCS: 36415; 71045; 80053; 80306; 80307; 81001; 83605; 84443; 84484; 85025; 87040; 87086; 93005; Q0162

== ENCOUNTER 2023-04-09 17:57 | Emergency (ER) | payer OTHER ==
[2023-04-09 18:41] LABS: Hematocrit 40.4 % (36.0-47.0); Hemoglobin 13.4 g/dL (12.0-16.0); Mean Corpuscular HGB CONC 33.2 g/dL (32.0-36.0); Mean Corpuscular Hemoglobin 29.5 pg (27.0-31.0); Mean Platelet Volume 11.5 fL (7.4-10.4); Platelet Count 245 10x3/uL (130-400); RBC Distribution Width 14.7 % (11.5-14.5); Red Blood Cell (RBC) Count 4.54 mill/uL (4.20-5.40)
[2023-04-09 18:47] LABS: Delete Auto Diff?? YES; Manual Diff?? YES
[2023-04-09 19:05] LABS: Bacteria/HPF None Seen HPF (None Seen); Bilirubin Negative (Negative); Blood, Urine Trace (Negative); CAUTI Indications for Culture Alt mental st,lethar; Clarity Clear (Clear); Glucose, Urine (Dipstick) Normal (Negative); Ketone, Urine Trace mg/dL (Negative); Leukocyte Negative Leu/uL (Negative); Nitrite Negative (Negative); Protein, Urine (Dipstick) 20 mg/dL (Neg-Trace); RBC/HPF 0-3 HPF (0-3); Specific Gravity, Urine 1.031 (1.002-1.036); Squamous Epithelial 0-3 HPF (0-3); Urobilinogen 3 mg/dL (Less than 2); WBC/HPF 0-3 HPF (0-3)
[2023-04-09 19:09] LABS: Urine Culture Reflex No No
[2023-04-09 19:10] LABS: ALT (SGPT) 16 U/L (8-55); AST (SGOT) 27 U/L (5-34); Albumin 3.9 g/dL (3.5-5.0); Alkaline Phosphatase 98 U/L (40-110); Anion Gap 16 mmol/L (10-20); BUN (Urea Nitrogen) 18 mg/dL (9.8-20.1); Bilirubin, Total 0.3 mg/dL (0.2-1.2); Calc. Creatinine Clearance 0 mL/min (70-130); Calcium 9.6 mg/dL (7.8-10.44); Carbon Dioxide 25 mmol/L (22-29); Chloride 106 mmol/L (98-107); Estimated GFR 69; Globulin 3.7 g/dL (2.4-3.5); Glucose 73 mg/dL (70-105); Potassium 4.1 mmol/L (3.5-5.1); Protein, Total 7.6 g/dL (6.0-8.3); Sodium 143 mmol/L (136-145)
[2023-04-09 19:12] LABS: Amphetamine Not Detected (NotDetected); Barbiturates Screen Not Detected (NotDetected); Benzodiazepine Screen Not Detected (NotDetected); Cocaine Metabolite Screen Detected (NotDetected); Methadone Not Detected (NotDetected); Methamphetamine Not Detected (NotDetected); Opiate Screen Not Detected (NotDetected); Oxycodone Screen Not Detected (NotDetected); Phencyclidine (PCP) Not Detected (NotDetected); THC/Cannabinoid Screen Detected (NotDetected); Tricyclic Screen Not Detected (NotDetected)
[2023-04-09 19:14] LABS: Troponin I Less than 0.010 ng/mL (< 0.028)
[2023-04-09 19:18] LABS: CellaVision Operator ID LAB.KB; Lymphocytes 42 % (21-51); Monocytes 7 % (0-10); Neutrophil 37 % (42-75); Platelet Adequacy Comment Platelets Normal; RBC Morphology Within Normal Limits; Reactive Lymphocytes 12 % (0-10); Total Cell Count 100
== END 2023-04-10 15:45 | disposition short-term general hospital (02) ==
LOC: ERS 17:57
DX: R45.851 Suicidal ideations (principal); R44.3 Hallucinations, unspecified; F17.210 Nicotine dependence, cigarettes, uncomplicated; I10 Essential (primary) hypertension
CPT/HCPCS: 36415; 71045; 80053; 80306; 81001; 84484; 85025; 93005

== ENCOUNTER 2023-04-30 20:32 | Emergency (ER) | payer OTHER ==
[2023-04-30 21:38] LABS: #Eosinphils 0.1 thou/uL (0.0-0.7); #Monocytes 0.5 thou/uL (0.11-0.59); #Neutrophils 2.5 thou/uL (1.40-6.50); %Basophils 0.5 % (0.0-1.0); %Eosinophils 1.5 % (0.0-10.0); %Lymphocytes 55.8 % (21.0-51.0); %Monocytes 6.9 % (0.0-10.0); %Neutrophils 34.9 % (42.0-75.0); Hematocrit 48.5 % (36.0-47.0); Mean Corpuscular Hemoglobin 29.8 pg (27.0-31.0); Mean Corpuscular Volume 90.3 fl (78.0-98.0); Mean Platelet Volume 12.1 fL (7.4-10.4); Platelet Count 229 10x3/uL (130-400); RBC Distribution Width 15.4 % (11.5-14.5); Red Blood Cell (RBC) Count 5.37 mill/uL (4.20-5.40); White Blood Cell (WBC) Count 7.3 10x3/uL (4.8-10.8)
[2023-04-30 22:02] LABS: Acetaminophen Less than 10 mcg/mL (10.0-30.0); Alcohol Less than 10.0 mg/dL (Less than 10); Salicylate Less than 8.0 mg/dL (15.0-30.0)
[2023-04-30 22:06] LABS: ALT (SGPT) 18 U/L (8-55); AST (SGOT) 34 U/L (5-34); Albumin 4.8 g/dL (3.5-5.0); Alkaline Phosphatase 102 U/L (40-110); Anion Gap 16 mmol/L (10-20); BUN (Urea Nitrogen) 21 mg/dL (9.8-20.1); Bilirubin, Total 0.7 mg/dL (0.2-1.2); Calc. Creatinine Clearance 0 mL/min (70-130); Calcium 10.3 mg/dL (7.8-10.44); Carbon Dioxide 23 mmol/L (22-29); Chloride 101 mmol/L (98-107); Estimated GFR 63; Globulin 4.7 g/dL (2.4-3.5); Glucose 64 mg/dL (70-105); Potassium 4.1 mmol/L (3.5-5.1); Protein, Total 9.5 g/dL (6.0-8.3); Sodium 136 mmol/L (136-145); Troponin I Less than 0.010 ng/mL (< 0.028)
[2023-04-30] MEDS ORDERED: Amlodipine 5 MG TAB ONE (23:05)
[2023-04-30 23:35] LABS: Amphetamine Not Detected (NotDetected); Barbiturates Screen Not Detected (NotDetected); Benzodiazepine Screen Not Detected (NotDetected); Cocaine Metabolite Screen Detected (NotDetected); Methadone Not Detected (NotDetected); Methamphetamine Not Detected (NotDetected); Opiate Screen Not Detected (NotDetected); Oxycodone Screen Not Detected (NotDetected); Phencyclidine (PCP) Not Detected (NotDetected); THC/Cannabinoid Screen Detected (NotDetected); Tricyclic Screen Not Detected (NotDetected)
[2023-04-30 23:43] LABS: Troponin I Less than 0.010 ng/mL (< 0.028)
== END 2023-05-01 12:36 ==
LOC: ERS 20:32
DX: R07.9 Chest pain, unspecified (principal); F14.90 Cocaine use, unspecified, uncomplicated; I10 Essential (primary) hypertension; F17.210 Nicotine dependence, cigarettes, uncomplicated
CPT/HCPCS: 36415; 71045; 80053; 80306; 80307; 84484; 85025; 93005

== ENCOUNTER 2023-06-10 16:20 | Emergency (ER) | payer OTHER ==
[2023-06-10 17:04] LABS: Hematocrit 44.2 % (36.0-47.0); Hemoglobin 14.6 g/dL (12.0-16.0); Manual Diff?? YES; Mean Corpuscular Hemoglobin 29.6 pg (27.0-31.0); Mean Corpuscular Volume 89.5 fl (78.0-98.0); Mean Platelet Volume 12.3 fL (7.4-10.4); Platelet Count 205 10x3/uL (130-400); RBC Distribution Width 14.4 % (11.5-14.5); Red Blood Cell (RBC) Count 4.94 mill/uL (4.20-5.40); White Blood Cell (WBC) Count 6.6 10x3/uL (4.8-10.8)
[2023-06-10 17:07] LABS: Delete Auto Diff?? YES
[2023-06-10 17:17] LABS: Bacteria/HPF None Seen HPF (None Seen); Bilirubin Negative (Negative); Blood, Urine Trace (Negative); CAUTI Indications for Culture Dysuria,urgency,freq; Clarity Clear (Clear); Glucose, Urine (Dipstick) Normal (Negative); Ketone, Urine Negative (Negative); Leukocyte Negative Leu/uL (Negative); Nitrite Negative (Negative); Protein, Urine (Dipstick) 10 mg/dL (Neg-Trace); RBC/HPF 0-3 HPF (0-3); Specific Gravity, Urine 1.027 (1.002-1.036); Squamous Epithelial 0-3 HPF (0-3); Urobilinogen Normal mg/dL (Less than 2); WBC/HPF 0-3 HPF (0-3); pH, Urine 5.5 (5.0-9.0)
[2023-06-10 17:19] LABS: Urine Culture Reflex No No
[2023-06-10 17:25] LABS: Acetaminophen Less than 10 mcg/mL (10.0-30.0); Alcohol Less than 10.0 mg/dL (Less than 10); Salicylate Less than 8.0 mg/dL (15.0-30.0)
[2023-06-10 17:28] LABS: ALT (SGPT) 18 U/L (8-55); AST (SGOT) 28 U/L (5-34); Albumin 3.8 g/dL (3.5-5.0); Alkaline Phosphatase 116 U/L (40-110); Anion Gap 12 mmol/L (10-20); BUN (Urea Nitrogen) 19 mg/dL (9.8-20.1); Bilirubin, Total 0.4 mg/dL (0.2-1.2); Calc. Creatinine Clearance 0 mL/min (70-130); Calcium 9.3 mg/dL (7.8-10.44); Carbon Dioxide 24 mmol/L (22-29); Chloride 103 mmol/L (98-107); Estimated GFR 76; Globulin 4.3 g/dL (2.4-3.5); Glucose 81 mg/dL (70-105); Potassium 3.7 mmol/L (3.5-5.1); Protein, Total 8.1 g/dL (6.0-8.3); Sodium 135 mmol/L (136-145)
[2023-06-10 17:29] LABS: Amphetamine Not Detected (NotDetected); Barbiturates Screen Not Detected (NotDetected); Benzodiazepine Screen Not Detected (NotDetected); Cocaine Metabolite Screen Detected (NotDetected); Methadone Not Detected (NotDetected); Methamphetamine Not Detected (NotDetected); Opiate Screen Not Detected (NotDetected); Oxycodone Screen Not Detected (NotDetected); Phencyclidine (PCP) Not Detected (NotDetected); THC/Cannabinoid Screen Detected (NotDetected); Tricyclic Screen Not Detected (NotDetected)
[2023-06-10 17:32] LABS: Anisocytosis SLIGHT = 6-15 cells HPF (0-5); Band 2 % (5-11); Burr Cells SLIGHT = 2-5 cells HPF (0-1); CellaVision Operator ID LAB.CH5; Large Platelets 5.1 % (0-5); Lymphocytes 65 % (21-51); Macrocytosis SLIGHT = 6-15 cells HPF (0-5); Monocytes 2 % (0-10); Neutrophil 29 % (42-75); Plasma Cells 1 % (0-0); Platelet Adequacy Comment Platelets Normal; Reactive Lymphocytes 1 % (0-10); Smudge Cells 31.3 %; Total Cell Count 99
[2023-06-10] MEDS ORDERED: QUEtiapine 100 MG TAB PO SCH (20:00)
== END 2023-06-11 10:07 ==
LOC: ERS 16:20
DX: R45.851 Suicidal ideations (principal); R44.0 Auditory hallucinations; R45.850 Homicidal ideations; I10 Essential (primary) hypertension; F17.290 Nicotine dependence, other tobacco product, uncomplicated; Z79.899 Other long term (current) drug therapy
CPT/HCPCS: 36415; 80053; 80306; 80307; 81001; 84443; 85025; 93005

== ENCOUNTER 2023-08-06 06:35 | Emergency (ER) | payer OTHER ==
[2023-08-06 07:25] LABS: Hematocrit 48.8 % (36.0-47.0); Hemoglobin 16.5 g/dL (12.0-16.0); Manual Diff?? YES; Mean Corpuscular HGB CONC 33.8 g/dL (32.0-36.0); Mean Corpuscular Hemoglobin 30.1 pg (27.0-31.0); Mean Corpuscular Volume 88.9 fl (78.0-98.0); Mean Platelet Volume 11.7 fL (7.4-10.4); Platelet Count 162 10x3/uL (130-400); RBC Distribution Width 14.3 % (11.5-14.5); Red Blood Cell (RBC) Count 5.49 mill/uL (4.20-5.40); White Blood Cell (WBC) Count 6.1 10x3/uL (4.8-10.8)
[2023-08-06 07:35] LABS: Delete Auto Diff?? YES
[2023-08-06 07:44] LABS: ALT (SGPT) 17 U/L (8-55); AST (SGOT) 26 U/L (5-34); Albumin 4.4 g/dL (3.5-5.0); Alkaline Phosphatase 113 U/L (40-110); Anion Gap 17 mmol/L (10-20); BUN (Urea Nitrogen) 14 mg/dL (9.8-20.1); Bilirubin, Total 0.6 mg/dL (0.2-1.2); Calc. Creatinine Clearance 0 mL/min (70-130); Calcium 9.8 mg/dL (7.8-10.44); Carbon Dioxide 23 mmol/L (22-29); Chloride 102 mmol/L (98-107); Estimated GFR 74; Globulin 4.3 g/dL (2.4-3.5); Glucose 77 mg/dL (70-105); Potassium 4.1 mmol/L (3.5-5.1); Protein, Total 8.7 g/dL (6.0-8.3); Sodium 138 mmol/L (136-145)
[2023-08-06 07:58] LABS: Acetaminophen Less than 10 mcg/mL (10.0-30.0); Alcohol Less than 10.0 mg/dL (Less than 10); Salicylate Less than 8.0 mg/dL (15.0-30.0)
[2023-08-06 08:04] LABS: CellaVision Operator ID LAB.KW3; Eosinophils 1 % (0-10); Giant Platelets 2.1 % (0-5); Large Platelets 23.7 % (0-5); Lymphocytes 55 % (21-51); Monocytes 4 % (0-10); Neutrophil 29 % (42-75); Platelet Adequacy Comment Platelets Normal; RBC Morphology Within Normal Limits; Reactive Lymphocytes 9 % (0-10); Total Cell Count 97
[2023-08-06 13:57] LABS: Amphetamine Not Detected (NotDetected); Bacteria/HPF 2+ HPF (None Seen); Barbiturates Screen Not Detected (NotDetected); Benzodiazepine Screen Not Detected (NotDetected); Bilirubin Negative (Negative); Blood, Urine Trace (Negative); CAUTI Indications for Culture Alt mental st,lethar; Clarity Clear (Clear); Cocaine Metabolite Screen Detected (NotDetected); Glucose, Urine (Dipstick) Normal (Negative); Ketone, Urine Negative (Negative); Leukocyte 75 Leu/uL (Negative); Methadone Not Detected (NotDetected); Methamphetamine Not Detected (NotDetected); Nitrite Negative (Negative); Opiate Screen Not Detected (NotDetected); Oxycodone Screen Not Detected (NotDetected); Phencyclidine (PCP) Not Detected (NotDetected); Protein, Urine (Dipstick) Negative (Neg-Trace); RBC/HPF 0-3 HPF (0-3); THC/Cannabinoid Screen Detected (NotDetected); Tricyclic Screen Not Detected (NotDetected); Urobilinogen Normal mg/dL (Less than 2); WBC/HPF 0-3 HPF (0-3); pH, Urine 5.5 (5.0-9.0)
[2023-08-06 13:58] LABS: Urine Culture Reflex No No
[2023-08-06] MEDS ORDERED: Acetaminophen 500 MG TAB ONE (15:00)
== END 2023-08-07 09:38 ==
LOC: ERS 06:35
DX: R45.851 Suicidal ideations (principal); R10.9 Unspecified abdominal pain; I10 Essential (primary) hypertension; Z21 Asymptomatic human immunodeficiency virus [HIV] infection status; F17.210 Nicotine dependence, cigarettes, uncomplicated
CPT/HCPCS: 36415; 80053; 80306; 80307; 81001; 84443; 85025; 93005

== ENCOUNTER 2023-11-04 13:02 | Emergency (ER) | payer OTHER ==
[2023-11-04 13:44] LABS: ALT (SGPT) 17 U/L (8-55); AST (SGOT) 31 U/L (5-34); Albumin 3.3 g/dL (3.5-5.0); Alkaline Phosphatase 94 U/L (40-110); Anion Gap 13 mmol/L (10-20); BUN (Urea Nitrogen) 23 mg/dL (9.8-20.1); Bilirubin, Total 0.4 mg/dL (0.2-1.2); Calc. Creatinine Clearance 0 mL/min (70-130); Calcium 9.1 mg/dL (7.8-10.44); Carbon Dioxide 22 mmol/L (22-29); Chloride 111 mmol/L (98-107); Estimated GFR 59; Glucose 123 mg/dL (70-105); Potassium 3.7 mmol/L (3.5-5.1); Protein, Total 7.3 g/dL (6.0-8.3); Sodium 142 mmol/L (136-145)
[2023-11-04 14:02] LABS: Troponin I Less than 0.010 ng/mL (< 0.028)
[2023-11-04 14:08] LABS: Hematocrit 40.1 % (36.0-47.0); Hemoglobin 13.3 g/dL (12.0-16.0); Mean Corpuscular HGB CONC 33.2 g/dL (32.0-36.0); Mean Corpuscular Hemoglobin 29.6 pg (27.0-31.0); Mean Corpuscular Volume 89.3 fL (78.0-98.0); Platelet Count 161 10x3/uL (130-400); RBC Distribution Width 15.4 % (11.5-14.5); Red Blood Cell (RBC) Count 4.49 mill/uL (4.20-5.40)
[2023-11-04 14:35] LABS: Anisocytosis SLIGHT = 6-15 cells HPF (0-5); Burr Cells SLIGHT = 2-5 cells HPF (0-1); Eosinophils 2 % (0-10); Large Platelets 6.8 % (0-5); Lymphocytes 54 % (21-51); Monocytes 8 % (0-10); Neutrophil 36 % (42-75); Platelet Adequacy Comment Platelets Normal; Polychromasia SLIGHT = 2-3 cells HPF (0-2); Target Cells SLIGHT = 2-5 cells HPF (0-1)
== END 2023-11-04 15:41 | disposition home or self-care (01) ==
LOC: ERS 13:02
DX: S09.90XA Unspecified injury of head, initial encounter (principal); R56.9 Unspecified convulsions; B20 Human immunodeficiency virus [HIV] disease; I10 Essential (primary) hypertension; F17.290 Nicotine dependence, other tobacco product, uncomplicated; F17.210 Nicotine dependence, cigarettes, uncomplicated; W19.XXXA Unspecified fall, initial encounter; Y93.01 Activity, walking, marching and hiking
CPT/HCPCS: 70450; 71045; 72125; 80053; 83605; 84484; 85025; 93005

== ENCOUNTER 2023-11-16 02:15 | Emergency (ER) | payer OTHER ==
[2023-11-16 04:18] LABS: Amphetamine Not Detected (NotDetected); Barbiturates Screen Not Detected (NotDetected); Benzodiazepine Screen Not Detected (NotDetected); Cocaine Metabolite Screen Detected (NotDetected); Methadone Not Detected (NotDetected); Methamphetamine Not Detected (NotDetected); Opiate Screen Not Detected (NotDetected); Oxycodone Screen Not Detected (NotDetected); Phencyclidine (PCP) Not Detected (NotDetected); THC/Cannabinoid Screen Detected (NotDetected); Tricyclic Screen Not Detected (NotDetected)
[2023-11-16 05:02] LABS: Lipase 15 U/L (8-78)
[2023-11-16 05:05] LABS: Acetaminophen Less than 10 mcg/mL (10.0-30.0); Alcohol Less than 10.0 mg/dL (Less than 10); Salicylate Less than 8.0 mg/dL (15.0-30.0)
[2023-11-16 05:06] LABS: ALT (SGPT) 14 U/L (8-55); AST (SGOT) 27 U/L (5-34); Albumin 3.4 g/dL (3.5-5.0); Alkaline Phosphatase 131 U/L (40-110); Anion Gap 12 mmol/L (10-20); BUN (Urea Nitrogen) 9 mg/dL (9.8-20.1); Bilirubin, Total 0.4 mg/dL (0.2-1.2); Calc. Creatinine Clearance 0 mL/min (70-130); Calcium 9.1 mg/dL (7.8-10.44); Carbon Dioxide 23 mmol/L (22-29); Chloride 109 mmol/L (98-107); Estimated GFR 87; Globulin 3.8 g/dL (2.4-3.5); Glucose 74 mg/dL (70-105); Potassium 3.9 mmol/L (3.5-5.1); Protein, Total 7.2 g/dL (6.0-8.3); Sodium 140 mmol/L (136-145)
[2023-11-16 05:08] LABS: Hematocrit 42.6 % (36.0-47.0); Mean Corpuscular HGB CONC 32.9 g/dL (32.0-36.0); Mean Corpuscular Hemoglobin 30.2 pg (27.0-31.0); Mean Corpuscular Volume 91.8 fL (78.0-98.0); Platelet Count 148 10x3/uL (130-400); RBC Distribution Width 15.1 % (11.5-14.5); Red Blood Cell (RBC) Count 4.64 mill/uL (4.20-5.40)
[2023-11-16 05:50] LABS: Troponin I 0.015 ng/mL (< 0.028)
[2023-11-16 05:58] LABS: Anisocytosis MODERATE=16-30 cells HPF (0-5); Lymphocytes 44 % (21-51); Macrocytosis SLIGHT = 6-15 cells HPF (0-5); Monocytes 8 % (0-10); Neutrophil 48 % (42-75); Platelet Adequacy Comment Platelets Normal; Polychromasia SLIGHT = 2-3 cells HPF (0-2)
[2023-11-16] MEDS ORDERED: Amlodipine 5 MG TAB ONE (07:58)
== END 2023-11-16 17:36 ==
LOC: ERS 02:15
DX: R45.851 Suicidal ideations (principal); I10 Essential (primary) hypertension; G40.909 Epilepsy, unspecified, not intractable, without status epilepticus; F17.210 Nicotine dependence, cigarettes, uncomplicated; B20 Human immunodeficiency virus [HIV] disease; Z86.73 Personal history of transient ischemic attack (TIA), and cerebral infarction without residual deficits; Z79.899 Other long term (current) drug therapy
CPT/HCPCS: 36415; 71045; 80053; 80306; 80307; 83690; 84484; 85025; 93005

== ENCOUNTER 2023-12-14 20:19 | Emergency (ER) | payer OTHER ==
[2023-12-14] MEDS ORDERED: hydrALAZINE 20 MG/ML VIAL ONE (21:05)
[2023-12-14 21:24] LABS: #Basophils Less than 0.03 10x3/uL (0.0-0.2); %Basophils 0.4 % (0.0-1.0); %Eosinophils 1.6 % (0.0-10.0); %Neutrophils 33.6 % (42.0-75.0); Hematocrit 39.7 % (36.0-47.0); Hemoglobin 13.4 g/dL (12.0-16.0); Mean Corpuscular HGB CONC 33.8 g/dL (32.0-36.0); Mean Corpuscular Hemoglobin 29.7 pg (27.0-31.0); Mean Platelet Volume 12.5 fL (7.4-10.4); Platelet Count 190 10x3/uL (130-400); RBC Distribution Width 15.3 % (11.5-14.5); Red Blood Cell (RBC) Count 4.51 mill/uL (4.20-5.40)
[2023-12-14 21:40] LABS: Lipase 23 U/L (8-78)
[2023-12-14 21:43] LABS: Acetaminophen Less than 10 mcg/mL (10.0-30.0); Alcohol Less than 10.0 mg/dL (Less than 10); Salicylate Less than 8.0 mg/dL (15.0-30.0)
[2023-12-14 21:44] LABS: ALT (SGPT) 17 U/L (8-55); AST (SGOT) 33 U/L (5-34); Albumin 3.5 g/dL (3.5-5.0); Alkaline Phosphatase 102 U/L (40-110); Anion Gap 11 mmol/L (10-20); BUN (Urea Nitrogen) 16 mg/dL (9.8-20.1); Bilirubin, Total 0.3 mg/dL (0.2-1.2); CK (CPK) 413 U/L (29-168); Calc. Creatinine Clearance 0 mL/min (70-130); Calcium 9.1 mg/dL (7.8-10.44); Carbon Dioxide 23 mmol/L (22-29); Chloride 112 mmol/L (98-107); Estimated GFR 74; Globulin 3.8 g/dL (2.4-3.5); Glucose 72 mg/dL (70-105); Potassium 3.9 mmol/L (3.5-5.1); Protein, Total 7.3 g/dL (6.0-8.3); Sodium 142 mmol/L (136-145)
[2023-12-14 21:47] LABS: Troponin I Less than 0.010 ng/mL (< 0.028)
[2023-12-14 21:56] LABS: Bacteria/HPF None Seen HPF (None Seen); Bilirubin Negative (Negative); Blood, Urine Trace (Negative); CAUTI Indications for Culture Pelvic or flank pain; Clarity Clear (Clear); Glucose, Urine (Dipstick) Normal (Negative); Ketone, Urine Trace mg/dL (Negative); Leukocyte Negative Leu/uL (Negative); Nitrite Negative (Negative); Protein, Urine (Dipstick) Negative (Neg-Trace); RBC/HPF 0-3 HPF (0-3); Specific Gravity, Urine 1.016 (1.002-1.036); Squamous Epithelial 0-3 HPF (0-3); Urobilinogen Normal mg/dL (Less than 2); WBC/HPF 0-3 HPF (0-3)
[2023-12-14 21:57] LABS: Urine Culture Reflex No No
[2023-12-14 22:03] LABS: Amphetamine Not Detected (NotDetected); Barbiturates Screen Not Detected (NotDetected); Benzodiazepine Screen Not Detected (NotDetected); Cocaine Metabolite Screen Detected (NotDetected); Methadone Not Detected (NotDetected); Methamphetamine Not Detected (NotDetected); Opiate Screen Not Detected (NotDetected); Oxycodone Screen Not Detected (NotDetected); Phencyclidine (PCP) Not Detected (NotDetected); THC/Cannabinoid Screen Detected (NotDetected); Tricyclic Screen Not Detected (NotDetected)
[2023-12-14] MEDS ORDERED: cloNIDine 0.1 MG TAB ONE (23:10)
== END 2023-12-15 01:42 ==
LOC: ERS 20:19
DX: R45.851 Suicidal ideations (principal); F20.9 Schizophrenia, unspecified; F14.10 Cocaine abuse, uncomplicated; I10 Essential (primary) hypertension; F17.210 Nicotine dependence, cigarettes, uncomplicated
CPT/HCPCS: 36416; 71045; 80053; 80306; 80307; 81001; 82550; 83690; 84484; 85025; 93005; 96374; J0360

== ENCOUNTER 2023-12-30 03:29 | Emergency (ER) | payer OTHER ==
[2023-12-30 04:14] LABS: #Basophils 0.04 10x3/uL (0.0-0.2); %Basophils 0.5 % (0.0-1.0); %Eosinophils 0.8 % (0.0-10.0); %Lymphocytes 46.5 % (21.0-51.0); %Monocytes 9.8 % (0.0-10.0); %Neutrophils 42.3 % (42.0-75.0); Hematocrit 39.1 % (36.0-47.0); Mean Corpuscular HGB CONC 33.2 g/dL (32.0-36.0); Mean Corpuscular Hemoglobin 29.6 pg (27.0-31.0); Mean Corpuscular Volume 89.1 fL (78.0-98.0); Mean Platelet Volume 11.4 fL (7.4-10.4); Platelet Count 192 10x3/uL (130-400); RBC Distribution Width 14.4 % (11.5-14.5); Red Blood Cell (RBC) Count 4.39 mill/uL (4.20-5.40)
[2023-12-30 04:38] LABS: Bacteria/HPF None Seen HPF (None Seen); Bilirubin Negative (Negative); Blood, Urine 2+ (Negative); CAUTI Indications for Culture Pelvic or flank pain; Clarity Clear (Clear); Glucose, Urine (Dipstick) Normal (Negative); Ketone, Urine Negative (Negative); Leukocyte 75 Leu/uL (Negative); Nitrite Negative (Negative); Protein, Urine (Dipstick) Negative (Neg-Trace); Specific Gravity, Urine 1.024 (1.002-1.036); Squamous Epithelial 0-3 HPF (0-3); Urobilinogen Normal mg/dL (Less than 2)
[2023-12-30 04:40] LABS: Urine Culture Reflex No No
[2023-12-30 04:45] LABS: Amphetamine Not Detected (NotDetected); Barbiturates Screen Not Detected (NotDetected); Benzodiazepine Screen Not Detected (NotDetected); Cocaine Metabolite Screen Detected (NotDetected); Methadone Not Detected (NotDetected); Methamphetamine Not Detected (NotDetected); Opiate Screen Not Detected (NotDetected); Oxycodone Screen Not Detected (NotDetected); Phencyclidine (PCP) Detected (NotDetected); THC/Cannabinoid Screen Detected (NotDetected); Tricyclic Screen Not Detected (NotDetected)
[2023-12-30 04:47] LABS: ALT (SGPT) 18 U/L (8-55); AST (SGOT) 28 U/L (5-34); Acetaminophen Less than 10 mcg/mL (10.0-30.0); Albumin 3.6 g/dL (3.5-5.0); Alcohol Less than 10.0 mg/dL (Less than 10); Alkaline Phosphatase 94 U/L (40-110); Anion Gap 13 mmol/L (10-20); BUN (Urea Nitrogen) 12 mg/dL (9.8-20.1); Bilirubin, Total 0.4 mg/dL (0.2-1.2); CK (CPK) 299 U/L (29-168); Calc. Creatinine Clearance 0 mL/min (70-130); Calcium 9.3 mg/dL (7.8-10.44); Carbon Dioxide 21 mmol/L (22-29); Chloride 109 mmol/L (98-107); Estimated GFR 100; Globulin 4.1 g/dL (2.4-3.5); Glucose 79 mg/dL (70-105); Magnesium 1.8 mg/dL (1.6-2.6); Potassium 3.8 mmol/L (3.5-5.1); Protein, Total 7.7 g/dL (6.0-8.3); Salicylate Less than 8.0 mg/dL (15.0-30.0); Sodium 139 mmol/L (136-145)
[2023-12-30] MEDS ORDERED: Acetaminophen 500 MG TAB ONE (05:54)
== END 2023-12-30 14:40 ==
LOC: ERS 03:29
DX: M62.82 Rhabdomyolysis (principal); R44.0 Auditory hallucinations; I10 Essential (primary) hypertension; B19.20 Unspecified viral hepatitis C without hepatic coma; F17.210 Nicotine dependence, cigarettes, uncomplicated; Z21 Asymptomatic human immunodeficiency virus [HIV] infection status; Z59.00 Homelessness unspecified
CPT/HCPCS: 36416; 80053; 80306; 80307; 81001; 82550; 83735; 84443; 85025; 99285

== ENCOUNTER 2024-04-04 13:51 | Emergency (ER) | payer OTHER ==
[2024-04-04 15:27] LABS: Hematocrit 42.6 % (36.0-47.0); Hemoglobin 13.7 g/dL (12.0-16.0); Mean Corpuscular HGB CONC 32.2 g/dL (32.0-36.0); Mean Corpuscular Hemoglobin 30.4 pg (27.0-31.0); Mean Corpuscular Volume 94.5 fL (78.0-98.0); Mean Platelet Volume 11.8 fL (7.4-10.4); Platelet Count 200 10x3/uL (130-400); Red Blood Cell (RBC) Count 4.51 mill/uL (4.20-5.40)
[2024-04-04 15:40] LABS: ALT (SGPT) 23 U/L (8-55); AST (SGOT) 31 U/L (5-34); Acetaminophen Less than 10 mcg/mL (Less than 10); Albumin 3.8 g/dL (3.5-5.0); Alcohol Less than 10.0 mg/dL (Less than 10); Alkaline Phosphatase 101 U/L (40-110); Anion Gap 13 mmol/L (10-20); BUN (Urea Nitrogen) 13 mg/dL (9.8-20.1); Bilirubin, Total 0.6 mg/dL (0.2-1.2); Calc. Creatinine Clearance 0 mL/min (70-130); Calcium 9.5 mg/dL (7.8-10.44); Carbon Dioxide 18 mmol/L (22-29); Chloride 107 mmol/L (98-107); Estimated GFR 86; Globulin 3.8 g/dL (2.4-3.5); Glucose 74 mg/dL (70-105); Potassium 3.6 mmol/L (3.5-5.1); Protein, Total 7.6 g/dL (6.0-8.3); Salicylate Less than 8.0 mg/dL (Less than 8.0); Sodium 134 mmol/L (136-145)
[2024-04-04 15:45] LABS: Bacteria/HPF None Seen HPF (None Seen); Bilirubin Negative (Negative); Blood, Urine Trace (Negative); CAUTI Indications for Culture Dysuria,urgency,freq; Clarity Clear (Clear); Glucose, Urine (Dipstick) Normal (Negative); Ketone, Urine Trace mg/dL (Negative); Leukocyte Negative Leu/uL (Negative); Nitrite Negative (Negative); Protein, Urine (Dipstick) Negative (Neg-Trace); RBC/HPF 0-3 HPF (0-3); Specific Gravity, Urine 1.014 (1.002-1.036); Squamous Epithelial 0-3 HPF (0-3); Urobilinogen Normal mg/dL (Less than 2); WBC/HPF 0-3 HPF (0-3)
[2024-04-04 15:49] LABS: Urine Culture Reflex No No
[2024-04-04 15:51] LABS: Amphetamine Not Detected (NotDetected); Barbiturates Screen Not Detected (NotDetected); Benzodiazepine Screen Not Detected (NotDetected); Cocaine Metabolite Screen Detected (NotDetected); Methadone Not Detected (NotDetected); Methamphetamine Not Detected (NotDetected); Opiate Screen Not Detected (NotDetected); Oxycodone Screen Not Detected (NotDetected); Phencyclidine (PCP) Not Detected (NotDetected); THC/Cannabinoid Screen Detected (NotDetected); Tricyclic Screen Not Detected (NotDetected)
[2024-04-04 15:55] LABS: Troponin I Less than 0.010 ng/mL (< 0.028)
[2024-04-04 16:50] LABS: Anisocytosis SLIGHT = 6-15 cells HPF (0-5); Burr Cells SLIGHT = 2-5 cells HPF (0-1); Large Platelets 13.6 % (0-5); Lymphocytes 64 % (21-51); Monocytes 7 % (0-10); Neutrophil 28 % (42-75); Ovalocytes SLIGHT = 2-5 cells HPF (0-1); Platelet Adequacy Comment Platelets Normal
== END 2024-04-05 08:08 ==
LOC: ERS 13:51
DX: R45.851 Suicidal ideations (principal); F12.10 Cannabis abuse, uncomplicated; I10 Essential (primary) hypertension; F17.210 Nicotine dependence, cigarettes, uncomplicated; Z55.6 Problems related to health literacy; Z86.73 Personal history of transient ischemic attack (TIA), and cerebral infarction without residual deficits; Z79.899 Other long term (current) drug therapy
CPT/HCPCS: 36415; 36416; 70450; 71045; 80053; 80306; 80307; 81001; 84484; 85025; 93005

== ENCOUNTER 2024-04-20 06:42 | Emergency (ER) | payer OTHER ==
[2024-04-20 08:00] LABS: #Basophils 0.04 10x3/uL (0.0-0.2); %Basophils 0.6 % (0.0-1.0); %Eosinophils 1.3 % (0.0-10.0); %Lymphocytes 50.9 % (21.0-51.0); %Monocytes 6.7 % (0.0-10.0); %Neutrophils 40.4 % (42.0-75.0); Hematocrit 40.7 % (36.0-47.0); Hemoglobin 13.9 g/dL (12.0-16.0); Mean Corpuscular HGB CONC 34.2 g/dL (32.0-36.0); Mean Corpuscular Hemoglobin 30.8 pg (27.0-31.0); Mean Platelet Volume 12.1 fL (7.4-10.4); Platelet Count 183 10x3/uL (130-400); Red Blood Cell (RBC) Count 4.52 mill/uL (4.20-5.40)
[2024-04-20 08:20] LABS: Acetaminophen Less than 10 mcg/mL (Less than 10); Alcohol Less than 10.0 mg/dL (Less than 10); Salicylate Less than 8.0 mg/dL (Less than 8.0)
[2024-04-20 08:21] LABS: ALT (SGPT) 31 U/L (8-55); AST (SGOT) 38 U/L (5-34); Albumin 3.6 g/dL (3.5-5.0); Alkaline Phosphatase 97 U/L (40-110); Anion Gap 13 mmol/L (10-20); BUN (Urea Nitrogen) 16 mg/dL (9.8-20.1); Bilirubin, Total 0.3 mg/dL (0.2-1.2); Calc. Creatinine Clearance 0 mL/min (70-130); Carbon Dioxide 21 mmol/L (22-29); Chloride 108 mmol/L (98-107); Estimated GFR 86; Globulin 3.9 g/dL (2.4-3.5); Glucose 82 mg/dL (70-105); Potassium 3.8 mmol/L (3.5-5.1); Protein, Total 7.5 g/dL (6.0-8.3); Sodium 138 mmol/L (136-145)
[2024-04-20 08:24] LABS: Troponin I Less than 0.010 ng/mL (< 0.028)
[2024-04-20] MEDS ORDERED: Acetaminophen 500 MG TAB ONE (08:36)
[2024-04-20] MEDS ORDERED: Aspirin Chewable 81 MG TAB ONE (08:37)
[2024-04-20] MEDS ORDERED: Nitroglycerin 0.4 MG TAB 1 EACH ONE (08:37)
[2024-04-20 09:18] LABS: Amphetamine Not Detected (NotDetected); Barbiturates Screen Detected (NotDetected); Benzodiazepine Screen Not Detected (NotDetected); Cocaine Metabolite Screen Detected (NotDetected); Methadone Not Detected (NotDetected); Methamphetamine Not Detected (NotDetected); Opiate Screen Not Detected (NotDetected); Oxycodone Screen Not Detected (NotDetected); Phencyclidine (PCP) Not Detected (NotDetected); THC/Cannabinoid Screen Detected (NotDetected); Tricyclic Screen Not Detected (NotDetected)
== END 2024-04-20 18:11 ==
LOC: ERS 06:42
DX: R45.851 Suicidal ideations (principal); F17.210 Nicotine dependence, cigarettes, uncomplicated; I10 Essential (primary) hypertension; G40.909 Epilepsy, unspecified, not intractable, without status epilepticus; Z79.899 Other long term (current) drug therapy
CPT/HCPCS: 36415; 70450; 71045; 71260; 80053; 80306; 80307; 83735; 83880; 84443; 84484; 85025; 93005

== ENCOUNTER 2024-05-17 22:16 | Emergency (ER) | payer OTHER ==
[~2024-05-17 22:16] MED LIST changes: -Iopamidol 370 76% 100 ML VIAL ONE; +Iopamidol-370 76% 500 ML MDV (1 ML CHARGE) ONE
[2024-05-17 23:40] LABS: #Basophils 0.03 10x3/uL (0.0-0.2); %Basophils 0.5 % (0.0-1.0); %Eosinophils 0.7 % (0.0-10.0); %Lymphocytes 56.3 % (21.0-51.0); %Monocytes 5.6 % (0.0-10.0); %Neutrophils 36.7 % (42.0-75.0); Hematocrit 42.7 % (36.0-47.0); Hemoglobin 14.7 g/dL (12.0-16.0); Mean Corpuscular HGB CONC 34.4 g/dL (32.0-36.0); Mean Corpuscular Hemoglobin 31.1 pg (27.0-31.0); Mean Corpuscular Volume 90.3 fL (78.0-98.0); Mean Platelet Volume 13.3 fL (7.4-10.4); Platelet Count 252 10x3/uL (130-400); RBC Distribution Width 14.4 % (11.5-14.5); Red Blood Cell (RBC) Count 4.73 mill/uL (4.20-5.40)
[2024-05-17 23:46] LABS: Bacteria/HPF None Seen HPF (None Seen); Bilirubin Negative (Negative); Blood, Urine 2+ (Negative); CAUTI Indications for Culture Pelvic or flank pain; Clarity Clear (Clear); Glucose, Urine (Dipstick) Normal (Negative); Ketone, Urine Trace mg/dL (Negative); Leukocyte Negative Leu/uL (Negative); Nitrite Negative (Negative); Protein, Urine (Dipstick) Negative (Neg-Trace); RBC/HPF 0-3 HPF (0-3); Specific Gravity, Urine 1.019 (1.002-1.036); Squamous Epithelial 0-3 HPF (0-3); Urobilinogen Normal mg/dL (Less than 2); WBC/HPF 0-3 HPF (0-3); pH, Urine 5.5 (5.0-9.0)
[2024-05-17 23:50] LABS: Urine Culture Reflex No No
[2024-05-17] MEDS ORDERED: Amlodipine 5 MG TAB ONE (23:53)
[2024-05-17] MEDS ORDERED: Acetaminophen 325 MG TAB ONE (23:53)
[2024-05-17 23:54] LABS: Amphetamine Not Detected (NotDetected); Barbiturates Screen Detected (NotDetected); Benzodiazepine Screen Not Detected (NotDetected); Cocaine Metabolite Screen Detected (NotDetected); Methadone Not Detected (NotDetected); Methamphetamine Not Detected (NotDetected); Opiate Screen Not Detected (NotDetected); Oxycodone Screen Not Detected (NotDetected); Phencyclidine (PCP) Not Detected (NotDetected); THC/Cannabinoid Screen Not Detected (NotDetected); Tricyclic Screen Not Detected (NotDetected)
[2024-05-17 23:54] LABS: Acetaminophen Less than 10 mcg/mL (Less than 10); Alcohol Less than 10.0 mg/dL (Less than 10); Salicylate Less than 8.0 mg/dL (Less than 8.0)
[2024-05-18] LABS: Troponin I Less than 0.010 ng/mL (< 0.028)
[2024-05-18 03:59] LABS: Albumin 3.8 g/dL (3.5-5.0); Chloride 108 mmol/L (98-107); Potassium 3.8 mmol/L (3.5-5.1); Sodium 138 mmol/L (136-145)
[2024-05-18 04:00] LABS: Calcium 9.3 mg/dL (7.8-10.44); Glucose 68 mg/dL (70-105)
[2024-05-18 04:01] LABS: Globulin 4.3 g/dL (2.4-3.5); Protein, Total 8.1 g/dL (6.0-8.3)
[2024-05-18 04:02] LABS: Anion Gap 16 mmol/L (10-20); Carbon Dioxide 18 mmol/L (22-29)
[2024-05-18 04:03] LABS: Alkaline Phosphatase 102 U/L (40-110); Bilirubin, Total 0.3 mg/dL (0.2-1.2)
[2024-05-18 04:04] LABS: BUN (Urea Nitrogen) 18 mg/dL (9.8-20.1); Calc. Creatinine Clearance 0 mL/min (70-130); Estimated GFR 96
[2024-05-18 04:06] LABS: ALT (SGPT) 93 U/L (8-55); AST (SGOT) 89 U/L (5-34); CK (CPK) 485 U/L (29-168)
[2024-05-18] MEDS ORDERED: cloNIDine 0.1 MG TAB ONE (05:24)
== END 2024-05-18 13:32 ==
LOC: ERS 22:16
DX: T40.5X2A Poisoning by cocaine, intentional self-harm, initial encounter (principal); T40.712A Poisoning by cannabis, intentional self-harm, initial encounter; R51.9 Headache, unspecified; I10 Essential (primary) hypertension; F17.210 Nicotine dependence, cigarettes, uncomplicated; Z55.6 Problems related to health literacy
CPT/HCPCS: 70450; 71260; 74177; 80053; 80306; 80307; 81001; 82550; 84484; 85025; 93005

== ENCOUNTER 2024-06-02 11:05 | Emergency (ER) | payer OTHER ==
[2024-06-02] MEDS ORDERED: Ondansetron PF 4 MG/2 ML Vial ONE (11:21)
[2024-06-02] MEDS ORDERED: Ketorolac Tromethamine 30 MG (1 mL) VIAL ONE (11:21)
[2024-06-02 11:41] LABS: #Basophils 0.04 10x3/uL (0.0-0.2); %Basophils 0.5 % (0.0-1.0); %Eosinophils 0.5 % (0.0-10.0); %Lymphocytes 50.9 % (21.0-51.0); %Monocytes 8.8 % (0.0-10.0); %Neutrophils 39.2 % (42.0-75.0); Hematocrit 41.8 % (36.0-47.0); Hemoglobin 13.9 g/dL (12.0-16.0); Mean Corpuscular HGB CONC 33.3 g/dL (32.0-36.0); Mean Corpuscular Hemoglobin 30.3 pg (27.0-31.0); Mean Corpuscular Volume 91.3 fL (78.0-98.0); Mean Platelet Volume 11.8 fL (7.4-10.4); Platelet Count 156 10x3/uL (130-400); RBC Distribution Width 13.7 % (11.5-14.5); Red Blood Cell (RBC) Count 4.58 mill/uL (4.20-5.40)
[2024-06-02 12:04] LABS: ALT (SGPT) 113 U/L (8-55); AST (SGOT) 114 U/L (5-34); Albumin 3.7 g/dL (3.5-5.0); Alkaline Phosphatase 96 U/L (40-110); Anion Gap 15 mmol/L (10-20); BUN (Urea Nitrogen) 15 mg/dL (9.8-20.1); Bilirubin, Total 0.4 mg/dL (0.2-1.2); CK (CPK) 251 U/L (29-168); Calc. Creatinine Clearance 0 mL/min (70-130); Carbon Dioxide 20 mmol/L (22-29); Chloride 111 mmol/L (98-107); Estimated GFR 86; Globulin 3.8 g/dL (2.4-3.5); Glucose 75 mg/dL (70-105); Potassium 3.7 mmol/L (3.5-5.1); Protein, Total 7.5 g/dL (6.0-8.3); Sodium 142 mmol/L (136-145)
[2024-06-02 12:05] LABS: Acetaminophen Less than 10 mcg/mL (Less than 10); Alcohol Less than 10.0 mg/dL (Less than 10); Lipase 12 U/L (8-78); Magnesium 1.8 mg/dL (1.6-2.6); Salicylate Less than 8.0 mg/dL (Less than 8.0)
[2024-06-02 12:07] LABS: Troponin I Less than 0.010 ng/mL (< 0.028)
[2024-06-02 15:38] LABS: Bilirubin Negative (Negative); Blood, Urine Trace (Negative); Glucose, Urine (Dipstick) Negative (Negative); Ketone, Urine Negative (Negative); Leukocyte Negative (Negative); Nitrite Negative (Negative); Protein, Urine (Dipstick) Negative (Neg-Trace); Urobilinogen 0.2 mg/dL (Less than 2)
[2024-06-02 15:39] LABS: Clarity Clear (Clear)
[2024-06-02 15:48] LABS: Amphetamine Not Detected (NotDetected); Barbiturates Screen Detected (NotDetected); Benzodiazepine Screen Not Detected (NotDetected); Cocaine Metabolite Screen Detected (NotDetected); Methadone Not Detected (NotDetected); Methamphetamine Not Detected (NotDetected); Opiate Screen Not Detected (NotDetected); Oxycodone Screen Not Detected (NotDetected); Phencyclidine (PCP) Not Detected (NotDetected); THC/Cannabinoid Screen Not Detected (NotDetected); Tricyclic Screen Not Detected (NotDetected)
[2024-06-02 15:50] LABS: RBC/HPF 0-3 HPF (0-3)
[2024-06-02] MEDS ORDERED: Acetaminophen 500 MG TAB ONE (17:20)
== END 2024-06-02 19:43 ==
LOC: ERS 11:05
DX: R45.851 Suicidal ideations (principal); R10.9 Unspecified abdominal pain; R11.0 Nausea; G40.909 Epilepsy, unspecified, not intractable, without status epilepticus; I10 Essential (primary) hypertension; F17.210 Nicotine dependence, cigarettes, uncomplicated; Z21 Asymptomatic human immunodeficiency virus [HIV] infection status; Z86.73 Personal history of transient ischemic attack (TIA), and cerebral infarction without residual deficits; Z79.899 Other long term (current) drug therapy
CPT/HCPCS: 36415; 71045; 74177; 80053; 80306; 80307; 81001; 82550; 83605; 83690; 83735; 83880; 84484; 85025; 93005; 94760; 96374; 96375; J1885; J2405

== ENCOUNTER 2024-06-18 01:34 | Emergency (ER) | payer OTHER ==
[2024-06-18 02:19] LABS: Bacteria/HPF None Seen HPF (None Seen); Bilirubin Negative (Negative); Blood, Urine 1+ (Negative); CAUTI Indications for Culture Alt mental st,lethar; Clarity Clear (Clear); Glucose, Urine (Dipstick) Normal (Negative); Ketone, Urine Trace mg/dL (Negative); Leukocyte 250 Leu/uL (Negative); Nitrite Negative (Negative); Protein, Urine (Dipstick) Negative (Neg-Trace); Specific Gravity, Urine 1.028 (1.002-1.036); Squamous Epithelial 0-3 HPF (0-3); Urobilinogen Normal mg/dL (Less than 2); WBC/HPF 0-3 HPF (0-3); pH, Urine 5.5 (5.0-9.0)
[2024-06-18 02:19] LABS: #Basophils Less than 0.03 10x3/uL (0.0-0.2); %Basophils 0.3 % (0.0-1.0); %Eosinophils 0.5 % (0.0-10.0); %Lymphocytes 53.8 % (21.0-51.0); %Monocytes 10.6 % (0.0-10.0); %Neutrophils 34.6 % (42.0-75.0); Hemoglobin 12.8 g/dL (12.0-16.0); Mean Corpuscular HGB CONC 33.7 g/dL (32.0-36.0); Mean Corpuscular Hemoglobin 30.3 pg (27.0-31.0); Mean Corpuscular Volume 89.8 fL (78.0-98.0); Mean Platelet Volume 11.7 fL (7.4-10.4); Platelet Count 156 10x3/uL (130-400); RBC Distribution Width 13.2 % (11.5-14.5); Red Blood Cell (RBC) Count 4.23 mill/uL (4.20-5.40)
[2024-06-18 02:23] LABS: Urine Culture Reflex No No
[2024-06-18 02:32] LABS: Amphetamine Not Detected (NotDetected); Barbiturates Screen Not Detected (NotDetected); Benzodiazepine Screen Not Detected (NotDetected); Cocaine Metabolite Screen Detected (NotDetected); Methadone Not Detected (NotDetected); Methamphetamine Not Detected (NotDetected); Opiate Screen Not Detected (NotDetected); Oxycodone Screen Not Detected (NotDetected); Phencyclidine (PCP) Not Detected (NotDetected); THC/Cannabinoid Screen Detected (NotDetected); Tricyclic Screen Detected (NotDetected)
[2024-06-18] MEDS ORDERED: Haloperidol Lactate 5 MG/ML VIAL ONE (02:32)
[2024-06-18 02:40] LABS: Acetaminophen Less than 10 mcg/mL (Less than 10); Alcohol Less than 10.0 mg/dL (Less than 10); Salicylate Less than 8.0 mg/dL (Less than 8.0)
[2024-06-18 02:42] LABS: ALT (SGPT) 29 U/L (8-55); AST (SGOT) 68 U/L (5-34); Albumin 3.7 g/dL (3.5-5.0); Alkaline Phosphatase 76 U/L (40-110); Anion Gap 12 mmol/L (10-20); BUN (Urea Nitrogen) 25 mg/dL (9.8-20.1); Bilirubin, Total 0.3 mg/dL (0.2-1.2); Calc. Creatinine Clearance 0 mL/min (70-130); Calcium 9.4 mg/dL (7.8-10.44); Carbon Dioxide 23 mmol/L (22-29); Chloride 108 mmol/L (98-107); Estimated GFR 81; Globulin 4.5 g/dL (2.4-3.5); Glucose 63 mg/dL (70-105); Potassium 4.3 mmol/L (3.5-5.1); Protein, Total 8.2 g/dL (6.0-8.3); Sodium 139 mmol/L (136-145)
[2024-06-18] MEDS ORDERED: Haloperidol 5 MG TAB PO SCH (02:45)
== END 2024-06-18 09:18 ==
LOC: ERS 01:34
DX: R45.851 Suicidal ideations (principal); R45.850 Homicidal ideations; F14.10 Cocaine abuse, uncomplicated; F12.10 Cannabis abuse, uncomplicated; B20 Human immunodeficiency virus [HIV] disease; I10 Essential (primary) hypertension; F17.210 Nicotine dependence, cigarettes, uncomplicated; Z79.899 Other long term (current) drug therapy; Z86.73 Personal history of transient ischemic attack (TIA), and cerebral infarction without residual deficits
CPT/HCPCS: 36415; 80053; 80306; 80307; 81001; 85025; 99285; J1630

== ENCOUNTER 2024-07-20 00:29 | Emergency (ER) | payer MEDICAID, OTHER ==
[2024-07-20 02:06] LABS: #Basophils 0.03 10x3/uL (0.0-0.2); %Basophils 0.3 % (0.0-1.0); %Eosinophils 0.8 % (0.0-10.0); %Lymphocytes 50.9 % (21.0-51.0); %Neutrophils 37.8 % (42.0-75.0); Hematocrit 44.1 % (36.0-47.0); Hemoglobin 14.3 g/dL (12.0-16.0); Mean Corpuscular HGB CONC 32.4 g/dL (32.0-36.0); Mean Corpuscular Hemoglobin 29.5 pg (27.0-31.0); Mean Corpuscular Volume 90.9 fL (78.0-98.0); Mean Platelet Volume 11.2 fL (7.4-10.4); Platelet Count 230 10x3/uL (130-400); RBC Distribution Width 13.4 % (11.5-14.5); Red Blood Cell (RBC) Count 4.85 mill/uL (4.20-5.40)
[2024-07-20 02:29] LABS: Acetaminophen Less than 10 mcg/mL (Less than 10); Alcohol Less than 10.0 mg/dL (Less than 10); Salicylate Less than 8.0 mg/dL (Less than 8.0)
[2024-07-20 02:31] LABS: ALT (SGPT) 16 U/L (Less than 34); AST (SGOT) 34 U/L (11-34); Alkaline Phosphatase 89 U/L (40-110); Anion Gap 15 mmol/L (10-20); BUN (Urea Nitrogen) 13 mg/dL (9.8-20.1); Bilirubin, Total 0.6 mg/dL (0.3-1.2); Calc. Creatinine Clearance 0 mL/min (70-130); Calcium 10.3 mg/dL (7.8-10.44); Carbon Dioxide 21 mmol/L (22-29); Chloride 103 mmol/L (98-107); Estimated GFR 69; Globulin 5.2 g/dL (2.4-3.5); Glucose 78 mg/dL (70-105); Potassium 4.3 mmol/L (3.5-5.1); Protein, Total 9.2 g/dL (6.0-8.3); Sodium 135 mmol/L (136-145)
[2024-07-20 03:23] LABS: Amphetamine Not Detected (NotDetected); Barbiturates Screen Not Detected (NotDetected); Benzodiazepine Screen Not Detected (NotDetected); Bilirubin Negative (Negative); Blood, Urine 1+ (Negative); CAUTI Indications for Culture Dysuria,urgency,freq; Clarity Turbid (Clear); Cocaine Metabolite Screen Detected (NotDetected); Glucose, Urine (Dipstick) Normal (Negative); Ketone, Urine Trace mg/dL (Negative); Leukocyte 500 Leu/uL (Negative); Methadone Not Detected (NotDetected); Methamphetamine Not Detected (NotDetected); Nitrite Negative (Negative); Opiate Screen Not Detected (NotDetected); Oxycodone Screen Not Detected (NotDetected); Phencyclidine (PCP) Not Detected (NotDetected); Protein, Urine (Dipstick) 30 mg/dL (Neg-Trace); Specific Gravity, Urine 1.026 (1.002-1.036); THC/Cannabinoid Screen Detected (NotDetected); Tricyclic Screen Detected (NotDetected); Urobilinogen 3 mg/dL (Less than 2); pH, Urine 5.5 (5.0-9.0)
[2024-07-20 03:24] LABS: Bacteria/HPF Rare-Few HPF (None Seen)
[2024-07-20 03:25] LABS: Urine Culture Reflex Yes Yes
== END 2024-07-20 08:20 ==
LOC: EEVIPCON 00:29 → ERS 00:29
DX: R45.851 Suicidal ideations (principal); F19.10 Other psychoactive substance abuse, uncomplicated; I10 Essential (primary) hypertension; F17.210 Nicotine dependence, cigarettes, uncomplicated; Z79.899 Other long term (current) drug therapy
CPT/HCPCS: 36415; 80053; 80306; 80307; 81001; 85025; 87086; 93005; 99285

== ENCOUNTER 2024-12-01 22:37 | Inpatient (IN) | payer MEDICAID ==
[2024-12-01] MEDS ORDERED: Acetaminophen 500 MG TAB ONE (23:13)
[2024-12-01] MEDS ORDERED: Cefepime 2 GM VIAL ONE (23:13)
[2024-12-01] MEDS ORDERED: Sodium Chloride 0.9% 100 ML ONE (23:14)
[2024-12-01 23:19] LABS: #Basophils 0.03 10x3/uL (0.0-0.2); #Eosinophils Less than 0.03 10x3/uL (0.0-0.7); #Monocytes 1.92 10x3/uL (0.11-0.59); #Neutrophils 8.37 10x3/uL (1.40-6.50); %Basophils 0.2 % (0.0-1.0); %Lymphocytes 31.4 % (21.0-51.0); %Monocytes 12.7 % (0.0-10.0); %Neutrophils 55.2 % (42.0-75.0); Hematocrit 41.4 % (36.0-47.0); Mean Corpuscular HGB CONC 33.8 g/dL (32.0-36.0); Mean Corpuscular Hemoglobin 28.6 pg (27.0-31.0); Mean Corpuscular Volume 84.7 fL (78.0-98.0); Platelet Count 144 10x3/uL (130-400); RBC Distribution Width 14.5 % (11.5-14.5); Red Blood Cell (RBC) Count 4.89 mill/uL (4.20-5.40); White Blood Cell (WBC) Count 15.15 10x3/uL (4.8-10.8)
[2024-12-01 23:32] LABS: Magnesium 1.7 mg/dL (1.6-2.6)
[2024-12-01 23:33] LABS: Acetaminophen Less than 10 mcg/mL (Less than 10); Alcohol Less than 10.0 mg/dL (Less than 10); Salicylate Less than 8.0 mg/dL (Less than 8.0)
[2024-12-01 23:34] LABS: ALT (SGPT) 31 U/L (Less than 34); AST (SGOT) 57 U/L (11-34); Alkaline Phosphatase 94 U/L (40-110); Anion Gap 17 mmol/L (10-20); BUN (Urea Nitrogen) 14 mg/dL (9.8-20.1); Bilirubin, Total 0.4 mg/dL (0.3-1.2); Calc. Creatinine Clearance 0 mL/min (70-130); Carbon Dioxide 20 mmol/L (22-29); Chloride 99 mmol/L (98-107); Estimated GFR 65; Glucose 103 mg/dL (70-105); Potassium 4.2 mmol/L (3.5-5.1); Sodium 132 mmol/L (136-145)
[2024-12-01 23:38] LABS: Troponin I 0.021 ng/mL (< 0.028)
[2024-12-02] MEDS ORDERED: Lorazepam 2 MG/ML VIAL IM PRN (01:23)
[2024-12-02] MEDS ORDERED: Ondansetron PF 4 MG/2 ML Vial IVP PRN (01:23)
[2024-12-02] MEDS ORDERED: Ondansetron ODT 4 MG TAB PO PRN ×2 (01:23)
[2024-12-02] MEDS ORDERED: Lorazepam 1 MG TAB PO PRN (01:23)
[2024-12-02] MEDS ORDERED: Electrolyte Replacement Protocol 1 EACH FS PRN (01:30)
[2024-12-02] MEDS: Vancomycin 1.5 GM / NS 500ML VIAL-2-BAG IVPB SCH (02:34)
[2024-12-02 02:43] LABS: Amphetamine Negative (Negative); Barbiturates Screen PRELIM POSITIVE (Negative); Benzodiazepine Screen Negative (Negative); Cocaine Metabolite Screen PRELIM POSITIVE (Negative); Methadone Negative (Negative); Methamphetamine Negative (Negative); Opiate Screen Negative (Negative); Oxycodone Screen Negative (Negative); Phencyclidine (PCP) Negative (Negative); THC/Cannabinoid Screen Negative (Negative); Tricyclic Screen Negative (Negative)
[2024-12-02 02:53] LABS: Bilirubin Negative (Negative); Blood, Urine 1+ (Negative); CAUTI Indications for Culture Alt mental st,lethar; Clarity Clear (Clear); Glucose, Urine (Dipstick) Normal (Negative); Ketone, Urine Negative (Negative); Leukocyte 250 Leu/uL (Negative); Nitrite Negative (Negative); Protein, Urine (Dipstick) Negative (Neg-Trace); RBC/HPF 0-3 HPF (0-3); Specific Gravity, Urine 1.007 (1.002-1.036); Squamous Epithelial 0-3 HPF (0-3); Urobilinogen Normal mg/dL (Less than 2)
[2024-12-02 02:54] LABS: Bacteria/HPF Rare-Few HPF (None Seen); Urine Culture Reflex No No
[2024-12-02] MEDS: cefTRIAXone\\ROCEPHIN 1 GM in Sodium Chloride 0.9% 100 ML IVPB SCH (03:03)
[2024-12-02] MEDS: Thiamine HCl 200 MG/2 ML VIAL SLOW IVP SCH (03:25)
[2024-12-02] MEDS: Nicotine 14 MG PATCH TD SCH (03:26)
[2024-12-02] MEDS: Lorazepam 1 MG TAB PO SCH (03:26)
[2024-12-02] MEDS: Azithromycin 500 MG in Sodium Chloride 0.9% 250 ML 250 ML IVPB SCH (03:26)
[2024-12-02] MEDS: Lactated Ringer's 1,000 ML IV SCH (03:27)
[2024-12-02] MEDS: Acetaminophen 325 MG TAB PO PRN (03:43)
[2024-12-02 04:05] LABS: #Basophils 0.03 10x3/uL (0.0-0.2); #Eosinophils Less than 0.03 10x3/uL (0.0-0.7); #Monocytes 1.09 10x3/uL (0.11-0.59); #Neutrophils 7.74 10x3/uL (1.40-6.50); %Basophils 0.2 % (0.0-1.0); %Lymphocytes 33.2 % (21.0-51.0); %Monocytes 8.2 % (0.0-10.0); Hematocrit 37.5 % (36.0-47.0); Hemoglobin 12.4 g/dL (12.0-16.0); Mean Corpuscular HGB CONC 33.1 g/dL (32.0-36.0); Mean Corpuscular Volume 87.8 fL (78.0-98.0); Mean Platelet Volume 12.4 fL (7.4-10.4); Platelet Count 122 10x3/uL (130-400); RBC Distribution Width 14.6 % (11.5-14.5); Red Blood Cell (RBC) Count 4.27 mill/uL (4.20-5.40); White Blood Cell (WBC) Count 13.35 10x3/uL (4.8-10.8)
[2024-12-02 04:24] LABS: Phosphorus 2.8 mg/dL (2.5-4.5)
[2024-12-02 04:26] LABS: ALT (SGPT) 22 U/L (Less than 34); AST (SGOT) 39 U/L (11-34); Albumin 3.2 g/dL (3.1-4.5); Alkaline Phosphatase 73 U/L (40-110); Anion Gap 10 mmol/L (10-20); BUN (Urea Nitrogen) 14 mg/dL (9.8-20.1); Bilirubin, Total 0.3 mg/dL (0.3-1.2); Calc. Creatinine Clearance 0 mL/min (70-130); Calcium 7.8 mg/dL (7.8-10.44); Carbon Dioxide 19 mmol/L (22-29); Chloride 110 mmol/L (98-107); Estimated GFR 86; Globulin 3.7 g/dL (2.4-3.5); Glucose 107 mg/dL (70-105); Magnesium 1.8 mg/dL (1.6-2.6); Potassium 3.4 mmol/L (3.5-5.1); Protein, Total 6.9 g/dL (6.0-8.3); Sodium 136 mmol/L (136-145)
[2024-12-02 04:33] VITALS: BMI 27.6
[2024-12-02 05:40] LABS: Influenza A by NAA Not Detected (NotDetected); Influenza B by NAA Not Detected (NotDetected); SARS-CoV-2 NAA Rapid Test Not Detected (NotDetected)
[2024-12-02] MEDS: Multivit, Therapeutic 1 TAB PO SCH (08:59)
[2024-12-02] MEDS: Folic Acid 1 MG TAB PO SCH (08:59)
[2024-12-02] MEDS ORDERED: Potassium Chloride 20 MEQ TAB PO SCH (09:00)
[2024-12-02] MEDS: Magnesium 2 GM/50 ML(in water) 2 GM in Premix 1 BAG IVPB SCH (09:02)
[2024-12-02] MEDS: Potassium Bicarbonate/Cit Ac 20 MEQ TAB PO SCH (09:02)
[2024-12-02] MEDS: Enoxaparin 40 MG (0.4 mL) SYRINGE SC SCH (09:10)
[2024-12-02] MEDS: Phenytoin Extended Release 100 MG CAP PO SCH (14:32)
[2024-12-02 17:49] VITALS: BMI 27.6
[2024-12-02] MEDS: Benztropine 1 MG TAB PO SCH (20:47)
[2024-12-02] MEDS: Melatonin 3 MG TAB PO PRN (20:47)
[2024-12-02] MEDS: Haloperidol 5 MG TAB PO SCH (20:47)
[2024-12-02] MEDS ORDERED: traZODone HCl 50 MG TAB PO SCH (21:00)
[2024-12-03] MEDS: Lorazepam 1 MG TAB PO SCH (01:11)
[2024-12-03] MEDS ORDERED: Lorazepam 1 MG TAB PO PRN (01:23)
[2024-12-03 04:39] LABS: #Basophils Less than 0.03 10x3/uL (0.0-0.2); #Eosinophils Less than 0.03 10x3/uL (0.0-0.7); #Monocytes 0.71 10x3/uL (0.11-0.59); #Neutrophils 5.62 10x3/uL (1.40-6.50); %Basophils 0.2 % (0.0-1.0); %Eosinophils 0.2 % (0.0-10.0); %Lymphocytes 34.1 % (21.0-51.0); %Monocytes 7.3 % (0.0-10.0); %Neutrophils 57.8 % (42.0-75.0); Hematocrit 32.5 % (36.0-47.0); Mean Corpuscular HGB CONC 33.8 g/dL (32.0-36.0); Mean Corpuscular Hemoglobin 29.5 pg (27.0-31.0); Mean Corpuscular Volume 87.1 fL (78.0-98.0); Mean Platelet Volume 12.2 fL (7.4-10.4); Platelet Count 117 10x3/uL (130-400); RBC Distribution Width 14.6 % (11.5-14.5); Red Blood Cell (RBC) Count 3.73 mill/uL (4.20-5.40); White Blood Cell (WBC) Count 9.72 10x3/uL (4.8-10.8)
[2024-12-03 04:45] LABS: ALT (SGPT) 20 U/L (Less than 34); AST (SGOT) 33 U/L (11-34); Albumin 2.7 g/dL (3.1-4.5); Alkaline Phosphatase 62 U/L (40-110); Anion Gap 9 mmol/L (10-20); BUN (Urea Nitrogen) 8 mg/dL (9.8-20.1); Bilirubin, Total 0.2 mg/dL (0.3-1.2); Calc. Creatinine Clearance 118 mL/min (70-130); Calcium 7.8 mg/dL (7.8-10.44); Carbon Dioxide 21 mmol/L (22-29); Chloride 111 mmol/L (98-107); Estimated GFR 103; Globulin 3.5 g/dL (2.4-3.5); Glucose 104 mg/dL (70-105); Potassium 3.4 mmol/L (3.5-5.1); Protein, Total 6.2 g/dL (6.0-8.3); Sodium 138 mmol/L (136-145)
[2024-12-03 05:49] VITALS: BP 164/92; TEMP 97.8
[2024-12-03] MEDS: Potassium Chloride 20 MEQ TAB PO SCH (08:30)
[2024-12-03] MEDS: Pantoprazole 40 MG DR.TAB PO SCH (08:30)
[2024-12-03] MEDS: Aspirin 81 mg Enteric Coated Tablet PO SCH (08:30)
[2024-12-03 12:13] LABS: %CD4 (Helper/Inducer) 14.5 % (30.8-58.5); Absolute CD4 522 /uL (359-1519); Lymphocytes/Gated Cell Count 3.6 x10E3/uL (0.7-3.1); Total Lymphocyte 27 % (Not Estab.); WBC Total Count 13.4 x10E3/uL (3.4-10.8)
[2024-12-04] MEDS ORDERED: Lorazepam 1 MG TAB PO PRN (01:23)
[2024-12-04] MEDS ORDERED: Lorazepam 0.5 MG TAB PO SCH (01:30)
[2024-12-05] MEDS ORDERED: Lorazepam 0.5 MG TAB PO PRN (01:23)
[2024-12-05] MEDS ORDERED: Thiamine 100 MG TAB PO SCH (01:30)
== END 2024-12-03 08:31 | disposition left against medical advice (07) | DRG 975 ==
LOC: ERS 22:37 → 2SE 12-02 01:23 → OBSVTOIN 12-02 13:58
PROVIDERS: ADMIT Family Medicine; ATTEND Family Medicine
DX: A41.9 Sepsis, unspecified organism (principal); E87.1 Hypo-osmolality and hyponatremia; B20 Human immunodeficiency virus [HIV] disease; Z59.00 Homelessness unspecified; R45.851 Suicidal ideations; J98.11 Atelectasis; J12.3 Human metapneumovirus pneumonia; F41.9 Anxiety disorder, unspecified; F19.10 Other psychoactive substance abuse, uncomplicated; F31.9 Bipolar disorder, unspecified; G40.909 Epilepsy, unspecified, not intractable, without status epilepticus; I10 Essential (primary) hypertension; F12.10 Cannabis abuse, uncomplicated; F14.10 Cocaine abuse, uncomplicated; F17.210 Nicotine dependence, cigarettes, uncomplicated; E11.9 Type 2 diabetes mellitus without complications; F10.20 Alcohol dependence, uncomplicated; Z53.29 Procedure and treatment not carried out because of patient's decision for other reasons; Z79.82 Long term (current) use of aspirin; Z79.899 Other long term (current) drug therapy; Z88.0 Allergy status to penicillin; Z86.73 Personal history of transient ischemic attack (TIA), and cerebral infarction without residual deficits; Z88.1 Allergy status to other antibiotic agents
CPT/HCPCS: 36415; 71045; 80053; 80306; 80307; 81001; 83605; 83735; 83880; 84100; 84145; 84484; 85025; 86361; 87040; 87081; 87633; 87798; 93005; 96372; 96375; G0378; J0456; J0692; J0696; J1650; J3411; J3475; J7030; J7050; J7120

== ENCOUNTER 2025-01-08 21:38 | Emergency (ER) | payer MEDICAID ==
[2025-01-08] MEDS ORDERED: Fluorescein Opthalmic Strip ONE ×2 (22:36→22:48)
[2025-01-08] MEDS ORDERED: Boostrix 0.5 ML (Tdap) VIAL (>/=7 yrs of age) ONE (22:37)
[2025-01-08] MEDS ORDERED: Proparacaine 0.5% Opth 15 ML BOT ONE (22:37)
== END 2025-01-09 02:07 | disposition home or self-care (01) ==
LOC: ERS 21:38
DX: H57.11 Ocular pain, right eye (principal); I10 Essential (primary) hypertension; F17.210 Nicotine dependence, cigarettes, uncomplicated; F17.290 Nicotine dependence, other tobacco product, uncomplicated; Z23 Encounter for immunization; Z86.73 Personal history of transient ischemic attack (TIA), and cerebral infarction without residual deficits
CPT/HCPCS: 90471; 90715

== ENCOUNTER 2025-05-20 21:11 | Emergency (ER) | payer MEDICAID ==
[2025-05-20 21:53] LABS: Hematocrit 43.0 % (36.0-47.0); Hemoglobin 13.9 g/dL (12.0-16.0); Mean Corpuscular Hemoglobin 28.0 pg (27.0-31.0); Mean Corpuscular Volume 86.7 fL (78.0-98.0); Platelet Count 194 10x3/uL (130-400); Red Blood Cell (RBC) Count 4.96 mill/uL (4.20-5.40); White Blood Cell (WBC) Count 5.16 10x3/uL (4.8-10.8)
[2025-05-20 22:01] LABS: Acetaminophen Less than 10 mcg/mL (Less than 10); Salicylate Less than 8.0 mg/dL (Less than 8.0)
[2025-05-20 22:02] LABS: ALT (SGPT) 16 U/L (Less than 34); AST (SGOT) 38 U/L (11-34); Albumin 3.9 g/dL (3.1-4.5); Alkaline Phosphatase 106 U/L (40-110); Anion Gap 7 mmol/L (10-20); BUN (Urea Nitrogen) 12 mg/dL (9.8-20.1); Bilirubin, Total 0.4 mg/dL (0.3-1.2); Calc. Creatinine Clearance 0 mL/min (70-130); Calcium 9.7 mg/dL (7.8-10.44); Carbon Dioxide 22 mmol/L (23-31); Chloride 110 mmol/L (98-107); Globulin 4.3 g/dL (2.4-3.5); Glucose 62 mg/dL (80-115); Potassium 3.7 mmol/L (3.5-5.1); Sodium 135 mmol/L (136-145)
[2025-05-20] MEDS ORDERED: Acetaminophen 500 MG TAB ONE (22:31)
[2025-05-20 22:48] LABS: Bacteria/HPF None Seen HPF (None Seen); CAUTI Indications for Culture Dysuria,urgency,freq; Glucose, Urine (Dipstick) Normal (Negative); Leukocyte 250 Leu/uL (Negative); Protein, Urine (Dipstick) 20 mg/dL (Neg-Trace); Specific Gravity, Urine 1.023 (1.002-1.036)
[2025-05-20 22:49] LABS: Urine Culture Reflex Yes Yes
[2025-05-20 22:52] LABS: Cocaine Metabolite Screen PRELIM POSITIVE (Negative); THC/Cannabinoid Screen PRELIM POSITIVE (Negative); Tricyclic Screen Negative (Negative)
[2025-05-20 23:02] LABS: Anisocytosis SLIGHT = 6-15 cells HPF (0-5); Macrocytosis SLIGHT = 6-15 cells HPF (0-5); Platelet Adequacy Comment Platelets Normal; Polychromasia SLIGHT = 2-3 cells HPF (0-2); Smudge Cells 35.0 %
== END 2025-05-21 01:29 ==
LOC: ERS 21:11
DX: R45.851 Suicidal ideations (principal); I10 Essential (primary) hypertension; F17.210 Nicotine dependence, cigarettes, uncomplicated; F17.290 Nicotine dependence, other tobacco product, uncomplicated
CPT/HCPCS: 80053; 80306; 80307; 81001; 85025; 87086; 93005; 99285